=== PATIENT | male | born 1965 | race Caucasian/White ===

== ENCOUNTER 2017-02-14 17:01 | Inpatient (IN) | payer OTHER ==
[~2017-02-14] VITALS: Ht 167.6 cm; Wt 85.0 kg
[2017-02-14] MEDS ORDERED: IOHEXOL 350 MG/ML 10 ML VIAL (for RAD DIAG) IVCONTRAST ONE (17:02)
[2017-02-14] MEDS ORDERED: MORPHINE SULFATE 8 MG/ML INJ ONE (17:09)
[2017-02-14 17:18] VITALS: O2SAT 97
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
[2017-02-14 17:27] LABS: AUTOMATED NEUTROPHIL # 7.4 TH/MM3 (1.8-7.7); BASOPHIL # 0.1 TH/MM3 (0-0.2); BASOPHIL % 0.6 % (0.0-2.0); EOSINOPHIL # 0.2 TH/MM3 (0-0.4); HEMATOCRIT 47.4 % (39.0-51.0); HEMO FLAGS DIFF FINAL; LYMPH % 23.9 % (9.0-44.0); LYMPHOCYTE # 2.8 TH/MM3 (1.0-4.8); MEAN CORPUSCULAR HEMOGLOBIN 34.3 PG (27.0-34.0); MEAN CORPUSCULAR HGB CONC 33.6 % (32.0-36.0); MONO % 9.5 % (0.0-8.0); PLATELET COUNT 230 TH/MM3 (150-450); RED BLOOD COUNT 4.65 MIL/MM3 (4.50-5.90); RED CELL DISTRIBUTION WIDTH 13.2 % (11.6-17.2); WHITE BLOOD COUNT 11.6 TH/MM3 (4.0-11.0)
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
[2017-02-14 17:37] LABS: APTT (PATIENT) 24.1 SEC (24.3-30.1); I-STAT POTASSIUM 4.2 MMOL/L (3.5-4.9); INTERNATIONAL NORMALIZED RATIO 1.1 RATIO; PROTHROMBIN TIME - PATIENT 11.9 SEC (9.8-11.6)
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
[2017-02-14] MEDS ORDERED: POTA-163 PO (17:53)
[2017-02-14] MEDS ORDERED: IPRASOL INH (17:53)
[2017-02-14] MEDS ORDERED: VENTAER INH (17:53)
[2017-02-14] MEDS ORDERED: THEO400T2 PO (17:53)
[2017-02-14] MEDS ORDERED: TAMS0.4C4 PO (17:53)
[2017-02-14] MEDS ORDERED: FURO40TA PO (17:53)
[2017-02-14] MEDS ORDERED: SYMB80AE INH (17:53)
[2017-02-14] MEDS ORDERED: CYAN1TAB24 (17:55)
[2017-02-14] MEDS ORDERED: MULT1TAB46 (17:55)
[2017-02-14] MEDS ORDERED: CHLORHEXIDINE GLUCONATE 2 % 1 PACK (2 CLOTHS) TOP PRN (19:00)
[2017-02-14] MEDS ORDERED: MISCELLANEOUS NURSING INFORMATION XX SCH (19:00)
[2017-02-14] MEDS ORDERED: ENALAPRILAT 1.25 MG/ML VIAL IV PUSH PRN (19:00)
[2017-02-14] MEDS ORDERED: ONDANSETRON HCL 4 MG/2 ML VIAL IV PUSH PRN (19:00)
[2017-02-14] MEDS ORDERED: SODIUM CHLORIDE 0.9% FLUSH 10 ML FLUSH IV FLUSH PRN (19:00)
[2017-02-14] MEDS ORDERED: MAGNESIUM HYDROXIDE SUSP 30 ML CUP PO PRN (19:00)
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
[2017-02-14 20:00] VITALS: BP 139/86; PULSE 117; RESP 20; TEMP 98.1; O2SAT 99
[2017-02-14] MEDS ORDERED: MORPHINE SULFATE 2 MG/ML INJ IV PUSH PRN (20:30)
[2017-02-14] MEDS ORDERED: RESP: ALBUTEROL 2.5 MG/IPRATROPIUM 0.5 MG NEB (SCH) NEB ONE (20:45)
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
[2017-02-14] MEDS ORDERED: MULTIVITAMIN INJ 10 ML, THIAMINE INJ 100 MG, FOLIC ACID INJ 1 MG in SODIUM CHLORID 0.9%... IV SCH (21:00)
[2017-02-14] MEDS ORDERED: PANTOPRAZOLE SODIUM 40 MG VIAL IVP SCH (21:00)
[2017-02-14] MEDS ORDERED: DOCUSATE SODIUM 100 MG CAP PO SCH (21:00)
[2017-02-14] MEDS: ACETAMINOPHEN/HYDROcodone 325 MG/5 MG TAB PO PRN (21:30)
[2017-02-14 22:35] VITALS: O2SAT 96
[2017-02-14] MEDS: BACITRACIN TOP OINT 15 GM TUBE TOP SCH (22:51)
[2017-02-15] VITALS (13 sets, daily range): BP systolic 120–167; BP diastolic 75–97; PULSE 86–104; RESP 13–21; TEMP 96.7–98.7; O2SAT 95–100
[2017-02-15 00:24] LABS: GLOMERULAR FILTRATION RATE 91 ML/MIN (>89)
[2017-02-15 00:32] LABS: ALKALINE PHOSPHATASE 163 U/L (45-117); ALT (GPT) 87 U/L (12-78); ANION GAP 8 MEQ/L (5-15); AST (GOT) 68 U/L (15-37); BICARBONATE 31.4 MEQ/L (21.0-32.0); BLOOD UREA NITROGEN 9 MG/DL (7-18); CHLORIDE 99 MEQ/L (98-107); SODIUM (NA) 138 MEQ/L (136-145); TOTAL BILIRUBIN ADULT 0.4 MG/DL (0.2-1.0)
[2017-02-15 00:33] LABS: THEOPHYLLINE 3.9 MCG/ML (10.0-20.0)
[2017-02-15] MEDS: ACETAMINOPHEN/HYDROcodone 325 MG/5 MG TAB PO PRN ×4 (03:43→22:45)
[2017-02-15] MEDS: CHLORHEXIDINE GLUCONATE 2 % 1 PACK (2 CLOTHS) TOP SCH (03:47)
[2017-02-15 05:51] LABS: AUTOMATED NEUTROPHIL # 10.5 TH/MM3 (1.8-7.7); BASOPHIL % 0.3 % (0.0-2.0); EOSINOPHIL # 0.1 TH/MM3 (0-0.4); EOSINOPHIL % 0.5 % (0.0-4.0); HEMATOCRIT 44.2 % (39.0-51.0); HEMO FLAGS DIFF FINAL; LYMPHOCYTE # 1.6 TH/MM3 (1.0-4.8); MEAN CELL VOLUME 100.9 FL (80.0-100.0); MEAN CORPUSCULAR HEMOGLOBIN 33.8 PG (27.0-34.0); MEAN CORPUSCULAR HGB CONC 33.5 % (32.0-36.0); NEUT % 78.2 % (16.0-70.0); PLATELET COUNT 230 TH/MM3 (150-450); RED BLOOD COUNT 4.37 MIL/MM3 (4.50-5.90); RED CELL DISTRIBUTION WIDTH 13.1 % (11.6-17.2); WHITE BLOOD COUNT 13.4 TH/MM3 (4.0-11.0)
--- NOTE | 2017-02-15 06:29 | RADRPT ---
EXAM DATE/TIME: 02/15/2017 05:22 [facility] COMPARISON: CHEST SINGLE AP, February 14, 2017, 17:02. INDICATIONS : Short of breath. MEDICAL HISTORY : None. SURGICAL HISTORY : None. ENCOUNTER: Subsequent ACUITY: 2 days PAIN SCORE: Non-responsive. LOCATION: Bilateral chest FINDINGS: The cardiac silhouette is normal in transverse diameter. There is subsegmental atelectasis in the lef t base. The right lung is free of acute parenchymal opacity. There is eventration of the right hemidi aphragm. CONCLUSION: 1. Subsegmental atelectasis left base. Edison Garcia MD on February 15, 2017 at 6:27 Board Certified Radiologist. This report was verified electronically.
[2017-02-15] MEDS ORDERED: LACTULOSE SYRUP 20 GM/30 ML CUP PO PRN (06:30)
[2017-02-15] MEDS: RESP: ALBUTEROL 2.5 MG/IPRATROPIUM 0.5 MG NEB (SCH) NEB ×4 (07:19→19:30)
[2017-02-15] MEDS: METHOCARBAMOL 500 MG TAB PO SCH ×3 (08:44→21:03)
[2017-02-15] MEDS: FUROSEMIDE 40 MG TAB PO SCH (08:44)
[2017-02-15] MEDS: POTASSIUM CHLORIDE 20 MEQ CONTROLLED RELEASE TAB PO SCH (08:44)
[2017-02-15] MEDS: CYANOCOBALAMIN 1,000 MCG TAB PO SCH (08:44)
[2017-02-15] MEDS: DOCUSATE SODIUM 50 MG/SENNA 8.6 MG TAB PO SCH ×2 (08:44→21:02)
[2017-02-15] MEDS: FAMOTIDINE 20 MG TAB PO SCH ×2 (08:44→21:02)
[2017-02-15] MEDS: LIDOCAINE HCL 5% PATCH T-DERMAL SCH (08:45)
[2017-02-15] MEDS: BACITRACIN TOP OINT 15 GM TUBE TOP SCH ×2 (08:45→21:03)
[2017-02-15] MEDS: BUDESONIDE-FORMOTEROL 80/4.5 MCG INHALER INH SCH ×2 (09:00→21:04)
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
[2017-02-15] MEDS: THEOPHYLLINE 200 MG EXTENDED RELEASE CAP PO SCH (18:14)
[2017-02-15] MEDS: REMOVE OLD LIDOCAINE PATCH T-DERMAL SCH (21:00)
[2017-02-15] MEDS: FOLIC ACID 1 MG TAB PO SCH (21:02)
[2017-02-15] MEDS: TAMSULOSIN HCL 0.4 MG CAP PO SCH (21:02)
[2017-02-15] MEDS: guaiFENesin E.R. 600 MG TAB PO SCH (21:02)
[2017-02-15] MEDS: MULTIVITAMIN INJ 10 ML, THIAMINE INJ 100 MG in SODIUM CHLORID 0.9% 500 ML INJ 500 ML IV SCH (21:03)
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
[2017-02-16] VITALS (13 sets, daily range): BP systolic 115–142; BP diastolic 72–83; PULSE 87–117; RESP 17–20; TEMP 96.5–97.6; O2SAT 95–99
[2017-02-16] MEDS: CHLORHEXIDINE GLUCONATE 2 % 1 PACK (2 CLOTHS) TOP SCH (00:17)
[2017-02-16] MEDS: ACETAMINOPHEN/HYDROcodone 325 MG/5 MG TAB PO PRN ×5 (02:33→20:51)
[2017-02-16 04:55] LABS: AUTOMATED NEUTROPHIL # 7.9 TH/MM3 (1.8-7.7); BASOPHIL % 0.3 % (0.0-2.0); EOSINOPHIL # 0.3 TH/MM3 (0-0.4); EOSINOPHIL % 2.5 % (0.0-4.0); HEMATOCRIT 39.8 % (39.0-51.0); HEMO FLAGS DIFF FINAL; LYMPHOCYTE # 1.6 TH/MM3 (1.0-4.8); MEAN CELL VOLUME 100.7 FL (80.0-100.0); MEAN CORPUSCULAR HEMOGLOBIN 34.4 PG (27.0-34.0); MEAN CORPUSCULAR HGB CONC 34.2 % (32.0-36.0); MONO % 9.4 % (0.0-8.0); NEUT % 72.8 % (16.0-70.0); PLATELET COUNT 199 TH/MM3 (150-450); RED BLOOD COUNT 3.95 MIL/MM3 (4.50-5.90); RED CELL DISTRIBUTION WIDTH 12.8 % (11.6-17.2); WHITE BLOOD COUNT 10.9 TH/MM3 (4.0-11.0)
[2017-02-16 05:23] LABS: ANION GAP 4 MEQ/L (5-15); AST (GOT) 41 U/L (15-37); BICARBONATE 32.3 MEQ/L (21.0-32.0); BLOOD UREA NITROGEN 17 MG/DL (7-18); CHLORIDE 100 MEQ/L (98-107); GLOMERULAR FILTRATION RATE 96 ML/MIN (>89); MAGNESIUM 2.1 MG/DL (1.5-2.5); POTASSIUM 3.7 MEQ/L (3.5-5.1); SODIUM (NA) 136 MEQ/L (136-145)
[2017-02-16 05:32] LABS: ALKALINE PHOSPHATASE 117 U/L (45-117); ALT (GPT) 62 U/L (12-78); FREE T4 1.11 NG/DL (0.76-1.46); TOTAL BILIRUBIN ADULT 0.9 MG/DL (0.2-1.0)
[2017-02-16] MEDS: RESP: ALBUTEROL 2.5 MG/3 ML NEB (PRN) NEB (06:06)
[2017-02-16] MEDS: METHOCARBAMOL 500 MG TAB PO SCH ×3 (06:07→20:50)
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
[2017-02-16] MEDS: RESP: ALBUTEROL 2.5 MG/IPRATROPIUM 0.5 MG NEB (SCH) NEB ×4 (08:17→21:20)
[2017-02-16] MEDS: FAMOTIDINE 20 MG TAB PO SCH ×2 (08:23→20:50)
[2017-02-16] MEDS: LIDOCAINE HCL 5% PATCH T-DERMAL SCH (08:23)
[2017-02-16] MEDS: POTASSIUM CHLORIDE 20 MEQ CONTROLLED RELEASE TAB PO SCH (08:24)
[2017-02-16] MEDS: guaiFENesin E.R. 600 MG TAB PO SCH ×2 (08:24→20:49)
[2017-02-16] MEDS: FUROSEMIDE 40 MG TAB PO SCH (08:24)
[2017-02-16] MEDS: CYANOCOBALAMIN 1,000 MCG TAB PO SCH (08:24)
[2017-02-16] MEDS: DOCUSATE SODIUM 50 MG/SENNA 8.6 MG TAB PO SCH ×2 (08:24→20:50)
[2017-02-16] MEDS: BUDESONIDE-FORMOTEROL 80/4.5 MCG INHALER INH SCH ×2 (08:29→20:49)
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
[2017-02-16] MEDS: THEOPHYLLINE 200 MG EXTENDED RELEASE CAP PO SCH (11:26)
[2017-02-16] MEDS: BACITRACIN TOP OINT 15 GM TUBE TOP SCH ×2 (11:27→20:51)
--- NOTE | 2017-02-16 11:27 | ECHRPT ---
Indication: sob CONCLUSIONS The left ventricular systolic function is low normal with an estimated ejection fraction in the rang e of 50- 55%. Normal left ventricular size. Mbbca-[id number]-mhyv mitral valve regurgitation. No aortic valve regurgitation. No aortic valve stenosis. There is mild tricuspid valve regurgitation. The pulmonary valve is not well visualized. BP: / HR: Rhythm: MEASUREMENTS (Male / Female) Normal Values Technical Quality:Very technically difficult study 2D ECHO LV Diastolic Diameter PLAX 4.5 cm 4.2 - 5.9 / 3.9 - 5.3 cm LV Systolic Diameter PLAX 3.5 cm IVS Diastolic Thickness 0.6 cm 0.6 - 1.0 / 0.6 - 0.9 cm LVPW Diastolic Thickness 0.9 cm 0.6 - 1.0 / 0.6 - 0.9 cm LV Relative Wall Thickness 0.4 RV Internal Dim ED PLAX 2.8 cm M-MODE Aortic Root Diameter MM 3.7 cm LA Systolic Diameter MM 2.4 cm LA Ao Ratio MM 0.6 FINDINGS LEFT VENTRICLE The left ventricular systolic function is low normal with an estimated ejection fraction in the rang e of 50- 55%. Normal left ventricular size. RIGHT VENTRICLE Normal right ventricular size and systolic function. LEFT ATRIUM The left atrial size is normal. RIGHT ATRIUM The right atrial size is normal. ATRIAL SEPTUM Normal atrial septal thickness without atrial level shunting by limited color doppler interrogation. AORTA The aortic root and proximal ascending aorta are normal in size on limited imaging. MITRAL VALVE Structurally normal mitral valve. Ezkbs-gt-oyca mitral valve regurgitation. AORTIC VALVE Trileaflet aortic valve. No aortic valve regurgitation. No aortic valve stenosis. TRICUSPID VALVE Structurally normal tricuspid valve. There is mild tricuspid valve regurgitation. PULMONARY VALVE The pulmonary valve is not well visualized. VESSELS The inferior vena cava is normal in size. PERICARDIUM No pericardial effusion. Burt Powell MD (Electronically Signed) Final Date:16 February 2017 11:27
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
[2017-02-16] MEDS: ENOXAPARIN SODIUM 40 MG/0.4 ML SYRINGE SQ SCH (14:01)
[2017-02-16 14:14] LABS: HEMOGLOBIN A1b 0.8 %; HEMOGLOBIN Ao 84.2 %; HEMOGLOBIN LA1C 2.3 %; HEMOGLOBIN P3 3.8 %
[2017-02-16] MEDS ORDERED: LACTULOSE SYRUP 20 GM/30 ML CUP PO ONE (15:15)
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
[2017-02-16] MEDS ORDERED: guaiFENesin ER PO (20:33)
[2017-02-16] MEDS ORDERED: PERI PO (20:33)
[2017-02-16] MEDS ORDERED: MAGN30S PO (20:33)
[2017-02-16] MEDS: TAMSULOSIN HCL 0.4 MG CAP PO SCH (20:49)
[2017-02-16] MEDS: MULTIVITAMIN INJ 10 ML, THIAMINE INJ 100 MG in SODIUM CHLORID 0.9% 500 ML INJ 500 ML IV SCH (20:49)
[2017-02-16] MEDS: FOLIC ACID 1 MG TAB PO SCH (20:50)
[2017-02-16] MEDS: REMOVE OLD LIDOCAINE PATCH T-DERMAL SCH (20:51)
[2017-02-17] VITALS (9 sets, daily range): BP systolic 138–163; BP diastolic 85–92; PULSE 106–118; RESP 16–22; TEMP 96–97.5; O2SAT 95–98
[2017-02-17] MEDS: CHLORHEXIDINE GLUCONATE 2 % 1 PACK (2 CLOTHS) TOP SCH (03:51)
[2017-02-17] MEDS: METHOCARBAMOL 500 MG TAB PO SCH ×3 (05:24→20:54)
[2017-02-17] MEDS: ACETAMINOPHEN/HYDROcodone 325 MG/5 MG TAB PO PRN ×4 (05:24→18:14)
[2017-02-17 06:56] LABS: ALT (GPT) 63 U/L (12-78); ANION GAP 9 MEQ/L (5-15); AST (GOT) 54 U/L (15-37); BICARBONATE 27.8 MEQ/L (21.0-32.0); BLOOD UREA NITROGEN 13 MG/DL (7-18); CHLORIDE 97 MEQ/L (98-107); GLOMERULAR FILTRATION RATE 100 ML/MIN (>89); MAGNESIUM 2.2 MG/DL (1.5-2.5); POTASSIUM 3.7 MEQ/L (3.5-5.1); SODIUM (NA) 134 MEQ/L (136-145)
[2017-02-17 06:59] LABS: ALKALINE PHOSPHATASE 124 U/L (45-117); TOTAL BILIRUBIN ADULT 0.9 MG/DL (0.2-1.0)
[2017-02-17 07:16] LABS: AUTOMATED NEUTROPHIL # 10.1 TH/MM3 (1.8-7.7); BASOPHIL % 0.4 % (0.0-2.0); EOSINOPHIL # 0.2 TH/MM3 (0-0.4); EOSINOPHIL % 1.6 % (0.0-4.0); HEMATOCRIT 40.6 % (39.0-51.0); HEMO FLAGS DIFF FINAL; LYMPH % 10.7 % (9.0-44.0); LYMPHOCYTE # 1.4 TH/MM3 (1.0-4.8); MEAN CELL VOLUME 101.1 FL (80.0-100.0); MEAN CORPUSCULAR HGB CONC 34.6 % (32.0-36.0); MONO % 8.4 % (0.0-8.0); NEUT % 78.9 % (16.0-70.0); PLATELET COUNT 208 TH/MM3 (150-450); RED BLOOD COUNT 4.02 MIL/MM3 (4.50-5.90); RED CELL DISTRIBUTION WIDTH 12.7 % (11.6-17.2); WHITE BLOOD COUNT 12.8 TH/MM3 (4.0-11.0)
[2017-02-17] MEDS: DOCUSATE SODIUM 50 MG/SENNA 8.6 MG TAB PO SCH ×2 (07:26→20:50)
[2017-02-17] MEDS: FAMOTIDINE 20 MG TAB PO SCH ×2 (07:26→20:50)
[2017-02-17] MEDS: guaiFENesin E.R. 600 MG TAB PO SCH ×2 (07:26→20:50)
[2017-02-17] MEDS: THEOPHYLLINE 200 MG EXTENDED RELEASE CAP PO SCH (07:27)
[2017-02-17] MEDS: POTASSIUM CHLORIDE 20 MEQ CONTROLLED RELEASE TAB PO SCH (07:27)
[2017-02-17] MEDS: CYANOCOBALAMIN 1,000 MCG TAB PO SCH (07:27)
[2017-02-17] MEDS: FUROSEMIDE 40 MG TAB PO SCH (07:27)
[2017-02-17] MEDS: BUDESONIDE-FORMOTEROL 80/4.5 MCG INHALER INH SCH ×2 (07:31→20:49)
[2017-02-17] MEDS: BACITRACIN TOP OINT 15 GM TUBE TOP SCH ×2 (07:31→20:49)
[2017-02-17] MEDS: LIDOCAINE HCL 5% PATCH T-DERMAL SCH (09:00)
[2017-02-17] MEDS: RESP: ALBUTEROL 2.5 MG/IPRATROPIUM 0.5 MG NEB (SCH) NEB ×4 (09:12→19:23)
--- NOTE | 2017-02-17 10:48 | PD.ORT.PN ---
Subjective Subjective Remarks left shoulder and rib pain Objective Vitals Vital Signs Date Time Temp Pulse Resp B/P (MAP) Pulse Ox O2 Delivery O2 Flow Rate FiO2 02/17/17 09:12 98 Nasal Cannula 3.00 02/17/17 08:00 96.0 111 22 163/92 (115) 95 02/17/17 04:00 96.4 111 20 146/85 (105) 98 02/17/17 00:46 96.1 106 16 153/90 (111) 97 02/16/17 21:27 95 30 02/16/17 21:20 95 Nasal Cannula 2.50 02/16/17 20:07 97.5 114 18 130/83 (99) 97 02/16/17 19:45 117 02/16/17 16:00 97.6 111 17 115/72 (86) 97 02/16/17 12:00 96.8 108 17 134/80 (98) 96 I/O 02/16/17 02/16/17 02/16/17 02/17/17 02/17/17 02/17/17 07:00 15:00 23:00 07:00 15:00 23:00 Intake Total 871 ml 480 ml 511 ml Output Total 550 ml 1250 ml Balance 321 ml -770 ml 511 ml Intake Oral 360 ml 480 ml IV Total 511 ml 511 ml Output Urine Total 550 ml 1250 ml # Voids 1 3 # Bowel Movements 0 0 1 Result Diagram: 02/17/17 0536 02/17/17 0536 Assessment & Plan Problem List: (1) Nondisplaced fracture of lateral end of left clavicle ICD Codes: S42.035A - Nondisplaced fracture of lateral end of left clavicle, initial encounter for closed fracture Status: Acute Qualifiers: Qualified Codes: S42.035A - Nondisplaced fracture of lateral end of left clavicle, initial encounter for closed fracture Assessment and Plan Non operative fracture management Continue standard sling Use of hand ok Avoid reaching with arm Follow up with Cal ZHAO(Dr. Liang's office) in 4 weeks Ok to D/C to home or rehab Micky Liang MD Feb 17, 2017 10:48
[2017-02-17] MEDS ORDERED: ENOX40P SQ (11:37)
[2017-02-17] MEDS ORDERED: HYDR-3516 PO (11:37)
[2017-02-17] MEDS ORDERED: METH500T3 PO (11:37)
[2017-02-17] MEDS ORDERED: FAMO20TA2 PO (11:37)
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
[2017-02-17] MEDS: ENOXAPARIN SODIUM 40 MG/0.4 ML SYRINGE SQ SCH (13:59)
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
[2017-02-17] MEDS ORDERED: GLUCAGON 1 MG/ML VIAL OTHER PRN (19:00)
[2017-02-17] MEDS ORDERED: DEXTROSE 50% IN WATER 50 ML VIAL(D50) IV PUSH PRN (19:00)
[2017-02-17] MEDS: REMOVE OLD LIDOCAINE PATCH T-DERMAL SCH (20:50)
[2017-02-17] MEDS: TAMSULOSIN HCL 0.4 MG CAP PO SCH (20:50)
[2017-02-17] MEDS: INSULIN ASPART SUPPLEMENTAL SCALE SQ SCH (20:58)
[2017-02-18] VITALS (12 sets, daily range): BP systolic 129–156; BP diastolic 80–93; PULSE 96–110; RESP 19–20; TEMP 95.5–98.2; O2SAT 97–100
[2017-02-18] MEDS: METHOCARBAMOL 500 MG TAB PO SCH ×3 (04:22→21:56)
[2017-02-18] MEDS: INSULIN ASPART SUPPLEMENTAL SCALE SQ SCH ×4 (08:00→21:00)
[2017-02-18] MEDS: FAMOTIDINE 20 MG TAB PO SCH ×2 (08:10→20:15)
[2017-02-18] MEDS: guaiFENesin E.R. 600 MG TAB PO SCH ×2 (08:10→20:15)
[2017-02-18] MEDS: CYANOCOBALAMIN 1,000 MCG TAB PO SCH (08:11)
[2017-02-18] MEDS: POTASSIUM CHLORIDE 20 MEQ CONTROLLED RELEASE TAB PO SCH (08:11)
[2017-02-18] MEDS: metFORMIN HCL 500 MG TAB PO SCH ×2 (08:11→17:33)
[2017-02-18] MEDS: BUDESONIDE-FORMOTEROL 80/4.5 MCG INHALER INH SCH ×2 (08:12→20:14)
[2017-02-18] MEDS: FUROSEMIDE 40 MG TAB PO SCH (08:12)
[2017-02-18] MEDS: RESP: ALBUTEROL 2.5 MG/IPRATROPIUM 0.5 MG NEB (SCH) NEB ×4 (08:12→20:52)
[2017-02-18] MEDS: LIDOCAINE HCL 5% PATCH T-DERMAL SCH (08:13)
[2017-02-18] MEDS: DOCUSATE SODIUM 50 MG/SENNA 8.6 MG TAB PO SCH ×2 (08:13→20:15)
[2017-02-18] MEDS: BACITRACIN TOP OINT 15 GM TUBE TOP SCH ×2 (08:14→20:15)
[2017-02-18] MEDS: ACETAMINOPHEN/HYDROcodone 325 MG/5 MG TAB PO PRN ×3 (08:20→21:57)
[2017-02-18] MEDS: THEOPHYLLINE 200 MG EXTENDED RELEASE CAP PO SCH (08:20)
--- NOTE | 2017-02-18 09:17 | PD.ORT.PN ---
Subjective Subjective Remarks Patient comfortable. Pain controlled. Objective Vitals Vital Signs Date Time Temp Pulse Resp B/P (MAP) Pulse Ox O2 Delivery O2 Flow Rate FiO2 02/18/17 09:00 96.8 105 20 150/80 (103) 98 02/18/17 08:23 4.00 02/18/17 08:20 98 Nasal Cannula 5.00 02/18/17 04:00 97.2 96 20 152/93 (112) 99 02/18/17 03:20 99 40 02/18/17 02:00 99 40 02/18/17 00:00 97.6 102 20 156/89 (111) 100 02/17/17 22:30 98 40 02/17/17 20:59 Nasal Cannula 3.00 02/17/17 19:55 97.5 116 20 152/89 (110) 98 02/17/17 19:24 98 Nasal Cannula 4.00 02/17/17 16:00 97.1 118 20 153/91 (111) 98 02/17/17 12:00 97.5 106 20 138/85 (102) 98 I/O 02/17/17 02/17/17 02/17/17 02/18/17 02/18/17 02/18/17 07:00 15:00 23:00 07:00 15:00 23:00 Intake Total 511 ml 840 ml 240 ml Output Total 700 ml 300 ml Balance 511 ml 140 ml -60 ml Intake Oral 840 ml 240 ml IV Total 511 ml Output Urine Total 700 ml 300 ml # Voids 3 2 2 # Bowel Movements 2 0 Result Diagram: 02/17/17 0536 02/17/17 0536 Objective Remarks Left clavicle skin intact ecchymosis noted tenderness with direct palpation to fracture site +sensation 2+ dorsalis pedis pulse Assessment & Plan Problem List: (1) Nondisplaced fracture of lateral end of left clavicle ICD Codes: S42.035A - Nondisplaced fracture of lateral end of left clavicle, initial encounter for closed fracture Status: Acute Qualifiers: Qualified Codes: S42.035A - Nondisplaced fracture of lateral end of left clavicle, initial encounter for closed fracture Assessment and Plan Non operative fracture management Pain management Continue standard sling Use of hand ok Avoid reaching with arm Follow up with Cal ZHAO (Dr. Liang's office) in 4 weeks Ok to D/C to home or rehab Cal Guerrero Feb 18, 2017 09:17
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
[2017-02-18 10:40] LABS: AUTOMATED NEUTROPHIL # 8.4 TH/MM3 (1.8-7.7); BASOPHIL # 0.1 TH/MM3 (0-0.2); BASOPHIL % 0.5 % (0.0-2.0); EOSINOPHIL # 0.3 TH/MM3 (0-0.4); EOSINOPHIL % 2.4 % (0.0-4.0); HEMATOCRIT 40.5 % (39.0-51.0); HEMO FLAGS DIFF FINAL; LYMPH % 11.4 % (9.0-44.0); LYMPHOCYTE # 1.3 TH/MM3 (1.0-4.8); MEAN CELL VOLUME 102.5 FL (80.0-100.0); MEAN CORPUSCULAR HEMOGLOBIN 35.1 PG (27.0-34.0); MEAN CORPUSCULAR HGB CONC 34.2 % (32.0-36.0); MONO % 13.2 % (0.0-8.0); NEUT % 72.5 % (16.0-70.0); PLATELET COUNT 198 TH/MM3 (150-450); RED BLOOD COUNT 3.95 MIL/MM3 (4.50-5.90); RED CELL DISTRIBUTION WIDTH 13.1 % (11.6-17.2); WHITE BLOOD COUNT 11.6 TH/MM3 (4.0-11.0)
[2017-02-18 11:06] LABS: ANION GAP 5 MEQ/L (5-15); AST (GOT) 63 U/L (15-37); BICARBONATE 32.9 MEQ/L (21.0-32.0); BLOOD UREA NITROGEN 14 MG/DL (7-18); CHLORIDE 99 MEQ/L (98-107); GLOMERULAR FILTRATION RATE 97 ML/MIN (>89); POTASSIUM 3.8 MEQ/L (3.5-5.1); SODIUM (NA) 137 MEQ/L (136-145)
[2017-02-18 11:08] LABS: ALT (GPT) 66 U/L (12-78)
[2017-02-18 11:10] LABS: ALKALINE PHOSPHATASE 140 U/L (45-117); HDL CHOLESTEROL 61.1 MG/DL (40.0-60.0); LDL CHOLESTEROL 75 MG/DL (0-99); TOTAL BILIRUBIN ADULT 0.7 MG/DL (0.2-1.0)
[2017-02-18] MEDS ORDERED: SODIUM CHLORIDE 0.65% NASAL DRP/SPRY 30 ML BTL EACH NARE PRN (12:00)
[2017-02-18] MEDS ORDERED: DOXAZOSIN MESYLATE 1 MG TAB PO ONE (12:15)
--- NOTE | 2017-02-18 12:52 | EKG ---
Date Performed: 02/17/2017 Time Performed: 18:43:40 PTAGE: 51 years EKG: Sinus tachycardia Generalized low voltage Poor R-wave progression across the precordium Sma ll inferior Q-waves of undetermined significance NO PREVIOUS TRACING DOCTOR: Ace Melchor Interpretating Date/Time 02/18/2017 12:50:30
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
[2017-02-18] MEDS: CETIRIZINE HCL 10 MG TAB PO SCH (14:35)
[2017-02-18] MEDS: ENOXAPARIN SODIUM 40 MG/0.4 ML SYRINGE SQ SCH (14:36)
[2017-02-18] MEDS: TAMSULOSIN HCL 0.4 MG CAP PO SCH (20:15)
[2017-02-18] MEDS: REMOVE OLD LIDOCAINE PATCH T-DERMAL SCH (20:18)
[2017-02-19] VITALS (8 sets, daily range): BP systolic 124–140; BP diastolic 69–79; PULSE 95–110; RESP 18–19; TEMP 96–98.3; O2SAT 98–100
[2017-02-19] MEDS: ACETAMINOPHEN/HYDROcodone 325 MG/5 MG TAB PO PRN ×3 (02:17→14:59)
[2017-02-19] MEDS: METHOCARBAMOL 500 MG TAB PO SCH ×2 (06:09→13:12)
[2017-02-19] MEDS: RESP: ALBUTEROL 2.5 MG/IPRATROPIUM 0.5 MG NEB (SCH) NEB ×3 (07:27→15:17)
--- NOTE | 2017-02-19 07:44 | PD.ORT.PN ---
Subjective Subjective Remarks left shoulder and rib pain comfortable Objective Vitals Vital Signs Date Time Temp Pulse Resp B/P (MAP) Pulse Ox O2 Delivery O2 Flow Rate FiO2 02/19/17 07:29 98 Nasal Cannula 4.00 02/19/17 04:05 96.8 108 19 124/69 (87) 99 02/19/17 03:42 98 4.00 02/19/17 00:05 98.3 110 19 137/76 (96) 98 02/18/17 23:33 99 40 02/18/17 20:55 98 Nasal Cannula 4.00 02/18/17 20:05 98.2 110 19 141/85 (103) 97 02/18/17 20:00 97 Nasal Cannula 4.00 02/18/17 20:00 110 02/18/17 15:45 97.8 108 20 129/85 (100) 99 02/18/17 12:00 95.5 97 20 142/90 (107) 99 02/18/17 09:00 96.8 105 20 150/80 (103) 98 02/18/17 08:23 4.00 02/18/17 08:20 98 Nasal Cannula 5.00 I/O 02/18/17 02/18/17 02/18/17 02/19/17 02/19/17 02/19/17 07:00 15:00 23:00 07:00 15:00 23:00 Intake Total 240 ml 360 ml 240 ml 240 ml Output Total 300 ml 1000 ml 250 ml Balance -60 ml -640 ml 240 ml -10 ml Intake Oral 240 ml 360 ml 240 ml 240 ml Output Urine Total 300 ml 1000 ml 250 ml # Voids 2 1 # Bowel Movements 1 0 0 Result Diagram: 02/18/17 1007 02/18/17 1007 Objective Remarks Left clavicle skin intact ecchymosis noted tenderness with direct palpation to fracture site +sensation 2+ pulse Assessment & Plan Problem List: (1) Nondisplaced fracture of lateral end of left clavicle ICD Codes: S42.035A - Nondisplaced fracture of lateral end of left clavicle, initial encounter for closed fracture Status: Acute Qualifiers: Qualified Codes: S42.035A - Nondisplaced fracture of lateral end of left clavicle, initial encounter for closed fracture Assessment and Plan Non operative fracture management Pain management Continue standard sling Use of hand ok Avoid reaching with arm Follow up with Cal Yolanda FOREMAN/PROJECT MANAGER (Dr. Liang's office) in 4 weeks Ok to D/C to home or rehab Micky Liang MD Feb 19, 2017 07:44
[2017-02-19] MEDS ORDERED: DOXAZOSIN MESYLATE 1 MG TAB PO SCH (09:00)
[2017-02-19] MEDS: CYANOCOBALAMIN 1,000 MCG TAB PO SCH (09:09)
[2017-02-19] MEDS: FUROSEMIDE 40 MG TAB PO SCH (09:09)
[2017-02-19] MEDS: CETIRIZINE HCL 10 MG TAB PO SCH (09:09)
[2017-02-19] MEDS: guaiFENesin E.R. 600 MG TAB PO SCH (09:09)
[2017-02-19] MEDS: FAMOTIDINE 20 MG TAB PO SCH (09:09)
[2017-02-19] MEDS: THEOPHYLLINE 200 MG EXTENDED RELEASE CAP PO SCH (09:09)
[2017-02-19] MEDS: POTASSIUM CHLORIDE 20 MEQ CONTROLLED RELEASE TAB PO SCH (09:09)
[2017-02-19] MEDS: DOCUSATE SODIUM 50 MG/SENNA 8.6 MG TAB PO SCH (09:09)
[2017-02-19] MEDS: LIDOCAINE HCL 5% PATCH T-DERMAL SCH (09:12)
[2017-02-19] MEDS: BACITRACIN TOP OINT 15 GM TUBE TOP SCH (09:13)
[2017-02-19] MEDS: BUDESONIDE-FORMOTEROL 80/4.5 MCG INHALER INH SCH (09:13)
[2017-02-19] MEDS: INSULIN ASPART SUPPLEMENTAL SCALE SQ SCH ×3 (09:21→17:00)
[2017-02-19] MEDS: metFORMIN HCL 500 MG TAB PO SCH ×2 (09:21→17:26)
[2017-02-19] MEDS: RESP: ALBUTEROL 2.5 MG/3 ML NEB (PRN) NEB (11:09)
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
[2017-02-19] MEDS: ENOXAPARIN SODIUM 40 MG/0.4 ML SYRINGE SQ SCH (13:12)
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
== END 2017-02-19 17:51 | DRG 184 ==
LOC: NEPI 17:01 → EDBD 17:41 → NEDH 17:41 → N03B 17:51 → N06B 02-15 22:26
PROVIDERS: ADMIT Surgery; ATTEND Surgery
DX: S22.42XA Multiple fractures of ribs, left side, initial encounter for closed fracture (principal); S27.0XXA Traumatic pneumothorax, initial encounter; J96.11 Chronic respiratory failure with hypoxia; K74.60 Unspecified cirrhosis of liver; J43.9 Emphysema, unspecified; S42.035A Nondisplaced fracture of lateral end of left clavicle, initial encounter for closed fracture; D72.829 Elevated white blood cell count, unspecified; Z99.81 Dependence on supplemental oxygen; I10 Essential (primary) hypertension; R00.0 Tachycardia, unspecified; D75.89 Other specified diseases of blood and blood-forming organs; V89.2XXA Person injured in unspecified motor-vehicle accident, traffic, initial encounter; Y92.488 Other paved roadways as the place of occurrence of the external cause; G47.33 Obstructive sleep apnea (adult) (pediatric); R60.0 Localized edema; N40.0 Benign prostatic hyperplasia without lower urinary tract symptoms; F10.10 Alcohol abuse, uncomplicated; R73.03 Prediabetes; E66.9 Obesity, unspecified; Z68.30 Body mass index [BMI] 30.0-30.9, adult; K80.20 Calculus of gallbladder without cholecystitis without obstruction; K57.30 Diverticulosis of large intestine without perforation or abscess without bleeding; Z87.891 Personal history of nicotine dependence; Z87.01 Personal history of pneumonia (recurrent)
CPT/HCPCS: 70450; 71010; 71260; 72125; 72170; 73030; 74177; 80053; 80061; 80074; 80198; 82435; 82565; 82947; 82948; 83036; 83735; 84100; 84132; 84295; 84439; 84443; 84520; 85025; 85610; 85730; 86850; 86900; 86901; 87641; 93005; 93306; 94002; 94003; 94150; 94640; 94664; 94667; 94668; J1650; J1815; J2270; J3010; J3411; J7040; J7613; Q9967

== ENCOUNTER 2017-04-17 22:05 | Inpatient (IN) | payer OTHER ==
[2017-04-17] VITALS (10 sets, daily range): BP systolic 88–187; BP diastolic 55–109; PULSE 113–151; RESP 16–18; TEMP 98.1–101.3; O2SAT 97–99
[~2017-04-17] VITALS: Ht 162.6 cm; Wt 76.3 kg
[~2017-04-17 22:05] MED LIST: CYAN1TAB24; ENOX40P SQ; FAMO20TA2 PO; FURO40TA PO; HYDR-3516 PO; IPRASOL INH; MAGN30S PO; METH500T3 PO; MULT1TAB46; PERI PO; POTA-163 PO; SYMB80AE INH; TAMS0.4C4 PO; THEO400T2 PO; VENTAER INH; guaiFENesin ER PO
[2017-04-17] MEDS ORDERED: SODIUM CHLORIDE 0.9% FLUSH 10 ML FLUSH IVF PRN ×3 (22:15→22:45)
--- NOTE | 2017-04-17 22:18 | PD ---
HPI Chief Complaint: shortness of breath Time Seen by Provider: 22:14 Travel History International Travel<30 days: No Contact w/Intl Traveler<30days: No (travel history is unable to be obtained from the patient) History of Present Illness HPI The patient is a 52 year old male who presents to the [facility] emergency department with a history of shortness of breath that began 2 days ago associated with a dry cough. The patient called ambulance services related to the shortness of breath and was noted to be saturating 92% on 2 L nasal cannula O2. The patient is normally on 2 L nasal cannula O2 continuously related to a history of COPD. The patient denies smoking currently. The patient has difficulty providing any of his history due to conversational dyspnea. The patient was placed on albuterol nebulizer treatments and was given 4 in route to this facility. IV access was obtained prior to arrival and the patient was given Solu-Medrol 125 mg IV. The patient's other history is limited as he is unable to provided at this time related to shortness of breath. The patient's history will be obtained from the electronic medical record in any other family members arrive. [facility] Past Medical History Narrative Medical the patient's past medical history is significant for COPD, obstructive sleep apnea on home BiPAP, history of benign prostatic hypertrophy, history of pneumonia 10 years ago related to MRSA, history of chronic pedal edema. The patient underwent a 2-D echo in February 2017 that revealed an ejection fraction of 50-55%. COPD: Yes Hiatal Hernia: Yes Past Surgical History Narrative Surgical The patient's past surgical history is significant for a left inguinal hernia repair, closed reduction of left foot fracture. Social History Alcohol Use: Yes Tobacco Use: No Substance Use: No Allergies-Medications (Allergen,Severity, Reaction): Coded Allergies: No Known Allergies (Unverified , 04/17/17) Reported Meds & Prescriptions Reported Meds & Active Scripts Active Famotidine 20 Mg Tab 20 Mg PO BID 5 Days Hydrocodone-Acetamin 5-325 mg (Hydrocodone/Acetaminophen) 5 Mg-325 Mg Tablet 1 Tab PO Q4H PRN Lovenox Inj (Enoxaparin Sodium) 40 Mg/0.4 Ml Syr 40 Mg SQ Q24H 5 Days Methocarbamol 500 Mg Tab 500 Mg PO Q8HR Gnp Senna Plus 8.6-50 mg (Sennosides-Docusate Sodium) 8.6 Mg-50 Mg Tab 2 Tab PO BID 5 Days Qc Milk of Magnesia (Magnesium Hydroxide) 400 Mg/5 Ml Jovana 30 Ml PO Q6H PRN 5 Days [guaiFENesin ER] 600 MG Tabcr 600 Mg PO BID 5 Days Reported B12 (Cyanocobalamin) 1,000 Mcg Tab 500 Mg Multi Vitamin Daily (Multiple Vitamin) 1 Tab Tab Potassium Chloride ER (Potassium Chloride) 20 Meq Tab 20 Meq PO DAILY Furosemide 40 Mg Tab 40 Mg PO DAILY Theophylline ER 24 HR (Theophylline) 400 Mg Tab 400 Mg PO DAILY Tamsulosin (Tamsulosin HCl) 0.4 Mg Cap 0.4 Mg PO HS Duoneb (Ipratropium-Albuterol Neb) 0.5-2.5 Mg/3 Ml Neb 1 Nebule INH Q4HR NEB Ventolin Hfa 18 GM Inh (Albuterol Sulfate) 90 Mcg/Act Aer 1 Puff INH Q4H Symbicort Inh (Budesonide/Formoterol Fumarate) 80-4.5 Mcg/Act Aero 1 Puff INH Q12HR Review of Systems ROS Limitations: Clinical Condition, Poor Historian HENT: Positive: Congestion Cardiovascular: Positive: Dyspnea on exertion Respiratory: Positive: Cough, Shortness of Breath, Wheezing Physical Exam Narrative General: The patient is a well-developed well-nourished male who arrives in acute distress on examination with tripoding, conversational dyspnea, accessory muscle use. Head and Neck exam: Head is normocephalic atraumatic. Eyes: EOMI, pupils are equal round and reactive to light. Nose: Midline septum with pink mucous membranes Mouth: Dentition unremarkable. Moist mucus membranes. Posterior oropharynx is not erythematous. No tonsillar hypertrophy. Uvula midline. Airway patent. Neck: No palpable lymphadenopathy. No nuchal rigidity. No thyromegaly. Cardiovascular: Regular sounding tachycardia in the 140s to 150s without murmurs, gallops, or rubs. No pulse deficit to the extremities on simultaneous auscultation and palpation of his radial artery. Lungs: Poor air movement bilaterally, soft expiratory wheezes audible anteriorly. Prolonged expiratory phase of breathing is noted. The patient has accessory muscle use noted. The patient is tripoding with nasal flaring. The patient has paroxysmal abdominal breathing. Abdomen: Soft, without tenderness to palpation in all 4 quadrants of the abdomen. No guarding, rebound, or rigidity. Normal bowel sounds are audible, no tenderness on palpation of McBurney's point. The patient has abdominal distention related to central obesity. Extremities: No clubbing or cyanosis. The patient has hyperpigmentation of bilateral lower extremities consistent with venous stasis changes. The patient has 1+ nonpitting edema. 2+ pulses in all 4 extremities. Back: No costovertebral angle tenderness to palpation. Neurologic Exam: Grossly nonfocal. Skin Exam: No rash noted. Intact skin that is warm and diaphoretic. Data Data Last Documented VS Vital Signs Date Time Temp Pulse Resp B/P (MAP) Pulse Ox O2 Delivery O2 Flow Rate FiO2 04/17/17 23:35 101.3 120 18 88/55 (66) 98 Ventilator 50 04/17/17 22:20 15.00 Orders Orders Complete Blood Count With Diff (04/17/17 22:14) Comprehensive Metabolic Panel (04/17/17 22:14) B-Type Natriuretic Peptide (04/17/17 22:14) Act Partial Throm Time (Ptt) (04/17/17 22:14) Prothrombin Time / Inr (Pt) (04/17/17 22:14) Magnesium (Mg) (04/17/17 22:14) Ckmb (Isoenzyme) Profile (04/17/17 22:14) Troponin I (04/17/17 22:14) Arterial Blood Gas (Abg) (04/17/17 22:14) Urinalysis - C+S If Indicated (04/17/17 22:14) Influenzae A/B Antigen (04/17/17 22:14) Iv Access Insert/Monitor (04/17/17 22:14) Electrocardiogram (04/17/17 22:14) Ecg Monitoring (04/17/17 22:14) Oximetry (04/17/17 22:14) Oxygen Administration (04/17/17 22:14) Chest, Single Ap (04/17/17 22:14) Sodium Chloride 0.9% Flush (Ns Flush) (04/17/17 22:15) Albuterol-Ipratropium Neb (Duoneb Neb) (04/17/17 22:15) Resp Bipap / Cpap Non Invas Vt (04/17/17 22:14) Lactic Acid Sepsis Protocol (04/17/17 22:14) Propofol 1000 Mg/100 Ml Inj (Diprivan 10 (04/17/17 22:45) ^ Infusion (04/17/17 22:33) RASS (04/17/17 22:33) Neurological Rass Scale LUCINDA.Q2H (04/17/17 22:33) Sodium Chloride 0.9% Flush (Ns Flush) (04/17/17 22:45) Ng Gastric Tube Insert/Monitor (04/17/17 22:33) Urinary Catheter Insert/Apply (04/17/17 22:33) Etomidate Inj (Amidate Inj) (04/17/17 22:45) Succinylcholine Inj (Quelicin Inj) (04/17/17 22:45) Sodium Chloride 0.9% Flush (Ns Flush) (04/17/17 22:45) Sodium Chlor 0.9% 1000 Ml Inj (Ns 1000 M (04/17/17 22:33) Neurological Rass Scale Q30MX2,Q2HX4,Q4H (04/17/17 22:41) Fentanyl Inj (Fentanyl Inj) (04/17/17 22:45) Fentanyl Drip (Fentanyl Drip) (04/17/17 22:45) Theophylline (Aminophylline) (04/17/17 22:31) Fentanyl Drip (Fentanyl Drip) (04/17/17 22:55) Sodium Chlor 0.9% 1000 Ml Inj (Ns 1000 M (04/17/17 23:15) CKMB (04/17/17 22:31) CKMB% (04/17/17 22:31) Admit Order (Ed Use Only) (04/17/17 23:40) Consult Cardiology (04/17/17 ) Labs Laboratory Tests Test 04/17/17 22:31 04/17/17 23:18 White Blood Count 11.6 TH/MM3 Red Blood Count 5.05 MIL/MM3 Hemoglobin 17.1 GM/DL Hematocrit 50.5 % Mean Corpuscular Volume 100.0 FL Mean Corpuscular Hemoglobin 33.8 PG Mean Corpuscular Hemoglobin Concent 33.8 % Red Cell Distribution Width 13.7 % Platelet Count 237 TH/MM3 Mean Platelet Volume 9.1 FL Neutrophils (%) (Auto) 64.1 % Lymphocytes (%) (Auto) 22.1 % Monocytes (%) (Auto) 13.1 % Eosinophils (%) (Auto) 0.3 % Basophils (%) (Auto) 0.4 % Neutrophils # (Auto) 7.4 TH/MM3 Lymphocytes # (Auto) 2.6 TH/MM3 Monocytes # (Auto) 1.5 TH/MM3 Eosinophils # (Auto) 0.0 TH/MM3 Basophils # (Auto) 0.0 TH/MM3 CBC Comment DIFF FINAL Differential Comment Prothrombin Time 12.0 SEC Prothromb Time International Ratio 1.2 RATIO Activated Partial Thromboplast Time 27.1 SEC Blood Urea Nitrogen 12 MG/DL Creatinine 1.04 MG/DL Random Glucose 128 MG/DL Total Protein 8.7 GM/DL Albumin 4.0 GM/DL Calcium Level 9.0 MG/DL Magnesium Level 2.1 MG/DL Alkaline Phosphatase 224 U/L Aspartate Amino Transf (AST/SGOT) 75 U/L Alanine Aminotransferase (ALT/SGPT) 85 U/L Total Bilirubin 0.8 MG/DL Sodium Level 132 MEQ/L Potassium Level 4.5 MEQ/L Chloride Level 93 MEQ/L Carbon Dioxide Level 32.5 MEQ/L Anion Gap 7 MEQ/L Estimat Glomerular Filtration Rate 74 ML/MIN Lactic Acid Level 2.6 mmol/L Total Creatine Kinase 444 U/L Creatine Kinase MB 8.4 NG/ML Creatine Kinase MB % 1.9 % Troponin I 0.49 NG/ML B-Type Natriuretic Peptide 92 PG/ML Theophylline Level 7.2 MCG/ML Urine Color YELLOW Urine Turbidity CLEAR Urine pH 6.0 Urine Specific [place] 1.035 Urine Protein 300 mg/dL Urine Glucose (UA) NEG mg/dL Urine Ketones TRACE mg/dL Urine Occult Blood TRACE Urine Nitrite NEG Urine Bilirubin NEG Urine Urobilinogen LESS THAN 2.0 MG/DL Urine Leukocyte Esterase NEG Urine RBC LESS THAN 1 /hpf Urine WBC LESS THAN 1 /hpf Urine Squamous Epithelial Cells <1 /hpf Urine Hyaline Casts 9 /lpf Urine Mucus FEW /lpf Microscopic Urinalysis Comment CULT NOT INDICATED MDM Medical Decision Making Medical Screen Exam Complete: Yes Emergency Medical Condition: Yes Medical Record Reviewed: Yes Interpretation(s) Last Impressions Chest X-Ray 04/17/17 5307 Signed Impressions: Service Date/Time: Monday, April 17, 2017 22:38 - CONCLUSION: Appropriate position of the endotracheal tube. Trace atelectasis and effusions of both bases. Michael Rosales MD Differential Diagnosis COPD exacerbation with respiratory failure, versus new-onset congestive heart failure, versus acute coronary syndrome, versus pulmonary embolus Narrative Course During the course of the patients emergency department visit, the patients history, examination, and differential diagnosis were reviewed with the patient. The patient was placed on a monitoring analyst with oximetry and frequent blood pressure monitoring. The patient had IV access obtained and blood work sent for analysis. The patient on arrival is in respiratory distress with conversational dyspnea, accessory muscle use, tripoding, paroxysmal abdominal breathing. Respiratory therapy was available at the bedside to assist with care. The patient was on a nebulizer treatment on arrival. The patient was prepped for placement on BiPAP. The patient was placed on BiPAP very briefly and appeared to continue to decompensate, therefore the patient was prepped for RSI. The patient was noted on arrival to be tachycardic in the 140s to 150s, hypertensive with a blood pressure 187/109. He was afebrile. The patient was provided Solu-Medrol 125 mg IV prior to arrival. The patient was initially provided BiPAP, DuoNeb 3. The patient was not responding well to BiPAP, therefore the patient was prepped for RSI. The patient continued to saturate well on BiPAP therefore he was preoxygenated on this. He was also placed on 12 L nasal cannula O2 during the intubation to assist with apneic oxygenation. The patient had an ECG done that revealed what appeared to be a sinus tachycardia rate of 150 with what was suspicious for ST segment elevation in lead V3, V4, V5. The machine stripper on-call for STEMI alert was called on his cell phone to discuss this further with him. Initially he was not able to receive the ECG and manage, however he was later able to view this and reported that the patient did not meet criteria for a STEMI alert. The patient will be seen by cardiology in consultation. The patient was given aspirin 300 mg HI. The patient had an inch of Nitropaste applied to the chest wall. The patient was intubated by me with an 8 size endotracheal tube at a depth of 23 at the teeth. The patient continued to have poor air movement although his O2 saturations were 99%. The patient was continued on DuoNeb's. The patients laboratory studies were reviewed and remarkable for a white count 11.6, hemoglobin 17.1, platelets 237 with monocyte of 13.1. CMP is remarkable for sodium of 132, chloride 93, CO2 32.5, glucose 128, AST 75, ALT 85, alkaline phosphatase 224, CPK 444, troponin I 0.49, BNP 92. Lactic acid is 2.6. PT 12, PTT 27.1, urinalysis shows 300 protein trace ketones trace occult blood, otherwise unremarkable. Theophylline level is 7.2. Radiology studies were reviewed and remarkable for a chest x-ray postintubation that reveals an appropriate position of the endotracheal tube trace atelectasis and effusions of both bases. The patient was started on additional normal saline IV fluids is no evidence of CHF was noted and the patient's tachypnea is causing increased insensible loss of fluids. The patient had an ABG done after intubation that reveals a pH of 7.201, PCO2 72.4, PO2 472, bicarbonate 27.3. The patient's FiO2 was decreased, respiratory rate increased to further blow off CO2. The patients results were discussed with the patient, including the plan of care. I explained that further testing and/ or monitoring is indicated based on the patients history, examination, and/ or laboratory findings. Therefore, I recommended admission for additional evaluation. The patient expressed understanding and was agreeable with this plan. The patient was admitted to the hospital in critical condition and sent to a bed under the care of the national sales trainer service. Critical Care Narrative Aggregate critical care time was 45 minutes. Time to perform other separately billable procedures was not included in the critical care time. My time did not include minutes spent treating any other patients simultaneously or on activities that did not directly contribute to the patient's treatment. The services I provided to this patient were to treat and/or prevent clinically significant deterioration that could result in: Cardiovascular collapse from acute coronary syndrome, versus cardiac arrhythmia, versus hypoxic brain injury, versus respiratory failure, versus fluid overload I provided critical care services requiring my management, as noted below: Chart data review, documentation time, medication orders and management, vital sign assessments/reviewing monitor data, ordering and reviewing lab tests, ordering and interpreting/reviewing x-rays and diagnostic studies, care of the patient and discussion of the patient with the admitting physicians. Physician Communication Physician Communication The patient's case including history, pertinent physical examination findings, and laboratory studies were discussed with Dr. Vásquez, the machine stripper on- call for STEMI alerts who was called at 22:39. His cell phone was called, however there was no answer, voice male was left. He called back at 22:50. He requested that the patient's ECGs be sent to him for review. A prior EKG as well as the EKG from today was sent to him, however he then called back and told me that he was not able to retrieve the images. He asked me how much ST segment elevation was noted. I explained that in V3, V4, V5, there appears to be between 1-1/[address] segment elevation. He requested an additional ECG be done. This additional EKG was able to be evaluated by him. After reviewing the EKG he did not think that the patient was a STEMI alert. He recommended that the patient be seen in consultation by cardiology. The patient's case including history, pertinent physical examination findings, and laboratory studies were discussed with Dr. Allan. It was agreed that the patient would be admitted to the national sales trainer's service. Diagnosis Primary Impression: COPD (chronic obstructive pulmonary disease) Qualified Codes: J44.9 - Chronic obstructive pulmonary disease, unspecified Additional Impression: Respiratory failure with hypercapnia Qualified Codes: J96.02 - Acute respiratory failure with hypercapnia Admitting Information Admitting Physician Requests: it Madalyn Kirkpatrick MD Apr 17, 2017 22:18
[2017-04-17] MEDS ORDERED: SODIUM CHLOR 0.9% 1000 ML INJ 1,000 ML IV ONE ×2 (22:33→23:15)
[2017-04-17] MEDS ORDERED: ETOMIDATE 20 MG/10 ML VIAL IVP ONE (22:45)
[2017-04-17] MEDS: RESP: ALBUTEROL 2.5 MG/IPRATROPIUM 0.5 MG NEB (SCH) INH ×3 (22:45→22:48)
[2017-04-17] MEDS ORDERED: SUCCINYLCHOLINE CHLORIDE 200 MG/10 ML VIAL IV PUSH ONE (22:45)
[2017-04-17] MEDS ORDERED: PROPOFOL 1000 MG/100 ML INJ 100 ML IV PRN (22:45)
[2017-04-17 22:46] LABS: AUTOMATED NEUTROPHIL # 7.4 TH/MM3 (1.8-7.7); BASOPHIL % 0.4 % (0.0-2.0); EOSINOPHIL % 0.3 % (0.0-4.0); HEMATOCRIT 50.5 % (39.0-51.0); HEMOGLOBIN 17.1 GM/DL (13.0-17.0); LYMPH % 22.1 % (9.0-44.0); LYMPHOCYTE # 2.6 TH/MM3 (1.0-4.8); MEAN CORPUSCULAR HEMOGLOBIN 33.8 PG (27.0-34.0); MEAN CORPUSCULAR HGB CONC 33.8 % (32.0-36.0); MEAN PLATELET VOLUME 9.1 FL (7.0-11.0); MONO % 13.1 % (0.0-8.0); MONOCYTE # 1.5 TH/MM3 (0-0.9); NEUT % 64.1 % (16.0-70.0); PLATELET COUNT 237 TH/MM3 (150-450); RED BLOOD COUNT 5.05 MIL/MM3 (4.50-5.90); RED CELL DISTRIBUTION WIDTH 13.7 % (11.6-17.2); WHITE BLOOD COUNT 11.6 TH/MM3 (4.0-11.0)
--- NOTE | 2017-04-17 22:54 | RADRPT ---
EXAM DATE/TIME: 04/17/2017 22:38 [facility] COMPARISON: CHEST SINGLE AP, February 16, 2017, 6:30. INDICATIONS : Post intubation. MEDICAL HISTORY : None. SURGICAL HISTORY : None. ENCOUNTER: Initial ACUITY: 1 day PAIN SCORE: Non-responsive. LOCATION: Bilateral chest FINDINGS: Tiny bilateral pleural effusions are present with trace basilar atelectasis. Patient is intubated. En dotracheal tube tip is approximately 4 cm above the ritika. No pneumothorax. Heart size stable, withi n normal limits. CONCLUSION: Appropriate position of the endotracheal tube. Trace atelectasis and effusions of both bases. Michael Rosales MD on April 17, 2017 at 22:51 Board Certified Radiologist. This report was verified electronically.
[2017-04-17] MEDS ORDERED: fentaNYL DRIP 250 ML ONE (22:55)
[2017-04-17 22:58] LABS: INTERNATIONAL NORMALIZED RATIO 1.2 RATIO
[2017-04-17] MEDS: fentaNYL DRIP 250 ML IV PRN (23:01)
[2017-04-17 23:15] LABS: AST (GOT) 75 U/L (15-37); BICARBONATE 32.5 MEQ/L (21.0-32.0); BLOOD UREA NITROGEN 12 MG/DL (7-18); CHLORIDE 93 MEQ/L (98-107); CREATININE 1.04 MG/DL (0.60-1.30); GLOMERULAR FILTRATION RATE 74 ML/MIN (>89); GLUCOSE,RANDOM 128 MG/DL (74-106); MAGNESIUM 2.1 MG/DL (1.5-2.5); SODIUM (NA) 132 MEQ/L (136-145); THEOPHYLLINE 7.2 MCG/ML (10.0-20.0)
[2017-04-17 23:16] LABS: ALT (GPT) 85 U/L (12-78)
[2017-04-17 23:20] LABS: ALKALINE PHOSPHATASE 224 U/L (45-117); TOTAL BILIRUBIN ADULT 0.8 MG/DL (0.2-1.0); TOTAL PROTEIN 8.7 GM/DL (6.4-8.2); TROPONIN I 0.49 NG/ML (0.02-0.05)
[2017-04-17 23:22] LABS: LACTIC ACID SEPSIS PROTOCOL 2.6 mmol/L (0.4-2.0)
--- NOTE | 2017-04-17 23:39 | HHI.HP ---
HPI Service Critical Care Medicine Primary Care Physician No Primary Care Physician Admission Diagnosis Diagnosis: Travel History International Travel<30 Days: No Contact w/Intl Traveler <30 Da: No Traveled to Known Affected Are: No History of Present Illness 52 year old male who presents with a history of shortness of breath that began 2 days ago associated with a dry cough. The patient called ambulance services related to the shortness of breath and was noted to be saturating 92% on 2 L nasal cannula O2. The patient is normally on 2 L nasal cannula O2 continuously related to a history of COPD. The patient denies smoking currently. In the emergency department he has received the breathing treatment and IV steroids and was placed on BiPAP without any improvement. Continues to be severely hypoxemic patient was intubated by ED attending. Review of Systems ROS Unobtainable patient is sedated and intubated Past Family Social History Allergies: Coded Allergies: No Known Allergies (Unverified , 04/17/17) Past Medical History COPD Past Surgical History Hernia repair Reported Medications Reported Meds & Active Scripts Active Famotidine 20 Mg Tab 20 Mg PO BID 5 Days Hydrocodone-Acetamin 5-325 mg (Hydrocodone/Acetaminophen) 5 Mg-325 Mg Tablet 1 Tab PO Q4H PRN Lovenox Inj (Enoxaparin Sodium) 40 Mg/0.4 Ml Syr 40 Mg SQ Q24H 5 Days Methocarbamol 500 Mg Tab 500 Mg PO Q8HR Gnp Senna Plus 8.6-50 mg (Sennosides-Docusate Sodium) 8.6 Mg-50 Mg Tab 2 Tab PO BID 5 Days Qc Milk of Magnesia (Magnesium Hydroxide) 400 Mg/5 Ml Jovana 30 Ml PO Q6H PRN 5 Days [guaiFENesin ER] 600 MG Tabcr 600 Mg PO BID 5 Days Reported B12 (Cyanocobalamin) 1,000 Mcg Tab 500 Mg Multi Vitamin Daily (Multiple Vitamin) 1 Tab Tab Potassium Chloride ER (Potassium Chloride) 20 Meq Tab 20 Meq PO DAILY Furosemide 40 Mg Tab 40 Mg PO DAILY Theophylline ER 24 HR (Theophylline) 400 Mg Tab 400 Mg PO DAILY Tamsulosin (Tamsulosin HCl) 0.4 Mg Cap 0.4 Mg PO HS Duoneb (Ipratropium-Albuterol Neb) 0.5-2.5 Mg/3 Ml Neb 1 Nebule INH Q4HR NEB Ventolin Hfa 18 GM Inh (Albuterol Sulfate) 90 Mcg/Act Aer 1 Puff INH Q4H Symbicort Inh (Budesonide/Formoterol Fumarate) 80-4.5 Mcg/Act Aero 1 Puff INH Q12HR Active Ordered Medications Current Medications Medications (Trade) Dose Ordered Sig/[place] Route PRN Reason Start Time Stop Time Status Last Admin Dose Admin Sodium Chloride (NS Flush) 2 ml UNSCH PRN IVF FLUSH AFTER USING IV ACCESS 04/17/17 22:15 Propofol 100 ml @ 3.3 mls/hr TITRATE PRN IV Ordered RASS 04/17/17 22:45 04/17/17 22:45 Sodium Chloride (NS Flush) 2 ml UNSCH PRN IVF FLUSH AFTER USING IV ACCESS 04/17/17 22:45 Sodium Chloride (NS Flush) 2 ml UNSCH PRN IVF FLUSH AFTER USING IV ACCESS 04/17/17 22:45 Sodium Chloride 1,000 ml @ 125 mls/hr Q8H ONCE IV 04/17/17 22:33 04/18/17 06:32 04/17/17 23:34 Fentanyl Citrate 250 ml @ 5 mls/hr TITRATE PRN IV SEDATION 04/17/17 22:45 04/17/17 23:01 Family History Family history significant of malignancy Social History Denies recent smoking, no alcohol or illicit drug abuse Physical Exam Vital Signs Vital Signs Date Time Temp Pulse Resp B/P (MAP) Pulse Ox O2 Delivery O2 Flow Rate FiO2 04/17/17 23:35 101.3 120 18 88/55 (66) 98 Ventilator 50 04/17/17 23:12 128 16 161/84 (109) 99 Ventilator 100 04/17/17 23:09 135 18 155/85 (108) 99 Ventilator 04/17/17 23:04 100 04/17/17 23:02 135 16 107/59 (75) 99 Ventilator 100 04/17/17 22:27 151 18 167/88 (114) 97 04/17/17 22:22 152 35 98 BiPAP 100 04/17/17 22:20 99 BiPAP 100 04/17/17 22:20 98 Simple Mask 15.00 04/17/17 22:14 98.1 140 18 187/109 (135) 98 Physical Exam GENERAL: Well-nourished, well-developed patient, sedated and intubated. SKIN: Warm and dry. HEAD: Normocephalic. EYES: No scleral icterus. No injection or drainage. NECK: Supple, trachea midline. No JVD or lymphadenopathy. CARDIOVASCULAR: Regular rate and rhythm without murmurs, gallops, or rubs. RESPIRATORY: Breath sounds equal bilaterally. No accessory muscle use. GASTROINTESTINAL: Abdomen soft, non-tender, nondistended. MUSCULOSKELETAL: No cyanosis, or edema. BACK: Nontender without obvious deformity. NEURO EXAM: Sedated and intubated, pupils reactive bilaterally Laboratory Laboratory Tests Test 04/17/17 22:31 White Blood Count 11.6 Red Blood Count 5.05 Hemoglobin 17.1 Hematocrit 50.5 Mean Corpuscular Volume 100.0 Mean Corpuscular Hemoglobin 33.8 Mean Corpuscular Hemoglobin Concent 33.8 Red Cell Distribution Width 13.7 Platelet Count 237 Mean Platelet Volume 9.1 Neutrophils (%) (Auto) 64.1 Lymphocytes (%) (Auto) 22.1 Monocytes (%) (Auto) 13.1 Eosinophils (%) (Auto) 0.3 Basophils (%) (Auto) 0.4 Neutrophils # (Auto) 7.4 Lymphocytes # (Auto) 2.6 Monocytes # (Auto) 1.5 Eosinophils # (Auto) 0.0 Basophils # (Auto) 0.0 CBC Comment DIFF FINAL Differential Comment Prothrombin Time 12.0 Prothromb Time International Ratio 1.2 Activated Partial Thromboplast Time 27.1 Blood Urea Nitrogen 12 Creatinine 1.04 Random Glucose 128 Total Protein 8.7 Albumin 4.0 Calcium Level 9.0 Magnesium Level 2.1 Alkaline Phosphatase 224 Aspartate Amino Transf (AST/SGOT) 75 Alanine Aminotransferase (ALT/SGPT) 85 Total Bilirubin 0.8 Sodium Level 132 Potassium Level 4.5 Chloride Level 93 Carbon Dioxide Level 32.5 Anion Gap 7 Estimat Glomerular Filtration Rate 74 Lactic Acid Level 2.6 Total Creatine Kinase 444 Creatine Kinase MB 8.4 Creatine Kinase MB % 1.9 Troponin I 0.49 B-Type Natriuretic Peptide 92 Theophylline Level 7.2 Result Diagram: 04/17/17223004/17/172230 Imaging Last 24 hours Impressions Chest X-Ray 04/17/172213 Signed Impressions: Service Date/Time: Monday, April 17, 2017 22:38 - CONCLUSION: Appropriate position of the endotracheal tube. Trace atelectasis and effusions of both bases. Michael Rosales MD Septic Shock Reassessment Septic shock perfusion: reassessment completed Caprini VTE Risk Assessment Caprini VTE Risk Assessment: Mod/High Risk (score >= 2) Caprini Risk Assessment Model Point Value = 1 Point Value = 2 Point Value = 3 Point Value = 5 Age 41-60 Minor surgery BMI > 25 kg/m2 Swollen legs Varicose veins or History of unexplained or recurrent spontaneous Oral contraceptives or hormone replacement Sepsis (< 1 month) Serious lung disease, including pneumonia (< 1 month) Abnormal pulmonary function Acute myocardial infarction Congestive heart failure (< 1 month) History of inflammatory bowel disease Medical patient at bed rest Age 61-74 Arthroscopic surgery Major open surgery (> 45 min) Laparoscopic surgery (> 45 min) Malignancy Confined to bed (> 72 hours) Immobilizing plaster cast Central venous access Age >= 75 History of VTE Family history of VTE Factor V Leiden Prothrombin [id number] Lupus anticoagulant Anticardiolipin antibodies Elevated serum homocysteine Heparin-induced thrombocytopenia Other congenital or acquired thrombophilia Stroke (< 1 month) Elective arthroplasty Hip, pelvis, or leg fracture Acute spinal cord injury (< 1 month) Prophylaxis Regimen Total Risk Factor Score Risk Level Prophylaxis Regimen 0-1 Low Early ambulation 2 Moderate Order ONE of the following: *Sequential Compression Device (SCD) *Heparin 5000 units SQ BID 3-4 Higher Order ONE of the following medications: *Heparin 5000 units SQ TID *Enoxaparin/Lovenox 40 mg SQ daily (WT < 150 kg, CrCl > 30 mL/min) *Enoxaparin/Lovenox 30 mg SQ daily (WT < 150 kg, CrCl > 10-29 mL/min) *Enoxaparin/Lovenox 30 mg SQ BID (WT < 150 kg, CrCl > 30 mL/min) AND/OR *Sequential Compression Device (SCD) 5 or more Highest Order ONE of the following medications: *Heparin 5000 units SQ TID (Preferred with Epidurals) *Enoxaparin/Lovenox 40 mg SQ daily (WT < 150 kg, CrCl > 30 mL/min) *Enoxaparin/Lovenox 30 mg SQ daily (WT < 150 kg, CrCl > 10-29 mL/min) *Enoxaparin/Lovenox 30 mg SQ BID (WT < 150 kg, CrCl > 30 mL/min) AND *Sequential Compression Device (SCD) Assessment and Plan Assessment and Plan Respiratory failure - COPD exacerbation - Broad-spectrum antibiotics - IV steroids - DuoNeb scheduled and when necessary - SBT daily when hypercarbia improves - Continue home meds Hypertension - Resume Lasix when off IV fluids Hyperglycemia of critical illness - Insulin sliding scale BPH - Tamsulosin DVT GI prophylaxis - Teds SCDs - Lovenox - IV Pepcid Critical Care: The total critical care time was 35 minutes. Time to perform other separately billable procedures was not included in the critical care time. Jeremy Allan MD Apr 17, 2017 23:39
[2017-04-18] VITALS (25 sets, daily range): BP systolic 87–139; BP diastolic 51–87; PULSE 63–104; RESP 18–19; TEMP 100; O2SAT 95–100
[2017-04-18] MEDS ORDERED: SENNOSIDES 8.6 MG TAB PO PRN (00:30)
[2017-04-18] MEDS ORDERED: MISCELLANEOUS NURSING INFORMATION XX SCH (00:30)
[2017-04-18] MEDS ORDERED: MAGNESIUM HYDROXIDE SUSP 30 ML CUP PO PRN (00:30)
[2017-04-18] MEDS ORDERED: CHLORHEXIDINE GLUCONATE 2 % 1 PACK (2 CLOTHS) TOP PRN (00:30)
[2017-04-18] MEDS ORDERED: NITROGLYCERIN 2% OINT 1 GM PACKET TOPICAL ONE (00:30)
[2017-04-18] MEDS ORDERED: SODIUM CHLORIDE 0.9% FLUSH 10 ML FLUSH IV FLUSH PRN (00:30)
[2017-04-18] MEDS ORDERED: BISACODYL 10 MG SUPP RECTAL PRN (00:30)
[2017-04-18] MEDS ORDERED: ONDANSETRON HCL 4 MG/2 ML VIAL IV PUSH PRN (00:30)
[2017-04-18] MEDS ORDERED: MIDAZOLAM HCL 2 MG/2 ML VIAL IV PUSH PRN (00:30)
[2017-04-18] MEDS ORDERED: ASPIRIN 300 MG SUPP RECTAL ONE (00:30)
[2017-04-18] MEDS ORDERED: LACTULOSE SYRUP 20 GM/30 ML CUP PO PRN (00:30)
[2017-04-18] MEDS ORDERED: GLUCAGON 1 MG/ML VIAL OTHER PRN (00:45)
[2017-04-18] MEDS ORDERED: DEXTROSE 50% IN WATER 50 ML VIAL(D50) IV PUSH PRN (00:45)
[2017-04-18] MEDS: RESP: ALBUTEROL 2.5 MG/IPRATROPIUM 0.5 MG NEB (PRN) INH (01:05)
[2017-04-18] MEDS: SODIUM CHLOR 0.9% 1000 ML INJ 1,000 ML IV SCH ×3 (01:22→14:17)
[2017-04-18] MEDS: ENOXAPARIN SODIUM 40 MG/0.4 ML SYRINGE SQ SCH (01:22)
[2017-04-18] MEDS: PIPERACIL-TAZO 4.5 GM PREMIX 100 ML IV SCH ×4 (01:23→21:38)
[2017-04-18] MEDS: methylPREDNISolone SOD SUCC 40 MG/1 ML VIAL IV PUSH SCH ×2 (01:23→11:24)
[2017-04-18 01:43] LABS: BILIRUBIN, URINE NEG (NEG); BLOOD, URINE TRACE (NEG); GLUCOSE,URINE NEG (NEG); HYALINE CAST, URINE 9 /lpf (RARE); KETONE, URINE TRACE mg/dL (NEG); MUCUS URINE FEW /lpf (OCC); NITRITE,URINE NEG (NEG); SQUAMOUS EPITHELIAL CELL URINE <1 /hpf (0-5); URINE COLOR YELLOW (YELLW/STRAW); URINE LEUKOCYTE ESTERASE NEG (NEG)
--- NOTE | 2017-04-18 03:05 | RADRPT ---
EXAM DATE/TIME: 04/18/2017 02:48 [facility] COMPARISON: CHEST SINGLE AP, April 17, 2017, 22:38. INDICATIONS : Endotrachial tube placement. MEDICAL HISTORY : None. SURGICAL HISTORY : None. ENCOUNTER: Subsequent ACUITY: 2 days PAIN SCORE: Non-responsive. LOCATION: Bilateral chest FINDINGS: The cardiac silhouette is normal in transverse diameter. The lungs are free of acute parenchymal opac ity. No effusions are identified. Endotracheal tube is in good position above the ritika. A nasogastr ic tube is in place with its tip in the stomach. CONCLUSION: 1. Satisfactory position of endotracheal tube as above. Edison Garcia MD on April 18, 2017 at 3:02 Board Certified Radiologist. This report was verified electronically.
[2017-04-18] MEDS: PROPOFOL 1000 MG/100 ML INJ 100 ML IV PRN ×4 (03:07→18:32)
[2017-04-18] MEDS: AZITHROMYCIN INJ 500 MG in SODIUM CHLOR 0.9% 250 ML INJ 250 ML IV SCH (03:16)
[2017-04-18] MEDS: CHLORHEXIDINE GLUCONATE 2 % 1 PACK (2 CLOTHS) TOP SCH (03:16)
[2017-04-18] MEDS: RESP: ALBUTEROL 2.5 MG/IPRATROPIUM 0.5 MG NEB (SCH) INH ×5 (04:11→20:30)
[2017-04-18] MEDS: METHOCARBAMOL 500 MG TAB PO SCH ×3 (06:00→21:39)
[2017-04-18] MEDS: fentaNYL DRIP 250 ML IV PRN ×3 (06:25→18:32)
[2017-04-18] MEDS: INSULIN NovoLIN REGULAR SUPPLEMENTAL SCALE SQ SCH ×4 (08:00→21:00)
[2017-04-18] MEDS: BUDESONIDE-FORMOTEROL 80/4.5 MCG INHALER INH SCH ×2 (09:00→21:00)
[2017-04-18] MEDS: guaiFENesin E.R. 600 MG TAB PO SCH ×2 (09:00→21:00)
[2017-04-18] MEDS: SODIUM CHLORIDE 0.9% FLUSH 10 ML FLUSH IV FLUSH SCH ×2 (09:06→21:39)
[2017-04-18] MEDS: ARTIFICIAL TEARS OPTH SOLN 15 ML BTL EACH EYE SCH ×3 (09:07→16:35)
[2017-04-18] MEDS: FAMOTIDINE 20 MG/2 ML VIAL IV PUSH SCH ×2 (09:07→21:39)
[2017-04-18] MEDS: DOCUSATE SODIUM 50 MG/SENNA 8.6 MG TAB PO SCH ×2 (11:24→21:39)
[2017-04-18] MEDS: THEOPHYLLINE 200 MG EXTENDED RELEASE CAP PO SCH (11:24)
[2017-04-18] MEDS ORDERED: ASPIRIN EC 81 MG TABEC PO ONE (15:45)
--- NOTE | 2017-04-18 15:54 | HHI.CCPN ---
Subjective Remarks/Hospital Course 52 year old male who presents with a history of shortness of breath that began 2 days ago associated with a dry cough. The patient called ambulance services related to the shortness of breath and was noted to be saturating 92% on 2 L nasal cannula O2. The patient is normally on 2 L nasal cannula O2 continuously related to a history of COPD. The patient denies smoking currently. In the emergency department he has received the breathing treatment and IV steroids and was placed on BiPAP without any improvement. Continues to be severely hypoxemic patient was intubated by ED attending. Subjective: 04/18: Afebrile .The patient remains intubated and sedated. Maintaining oxygen saturation of 9697% on FiO2 40%. Objective Vital Signs Date Time Temp Pulse Resp B/P (MAP) Pulse Ox O2 Delivery O2 Flow Rate FiO2 04/18/17 15:45 99 40 04/18/17 13:00 94.5 72 18 100/63 (75) 04/18/17 00:18 Ventilator 04/17/17 22:20 15.00 Intake and Output 04/18/17 04/18/17 04/19/17 08:00 16:00 00:00 Intake Total 2067 ml Output Total 100 ml Balance 1967 ml Result Diagram: 04/17/17 2231 04/17/17 2231 Other Results Microbiology Date/Time Source Procedure Growth Status 04/17/17 22:40 Nasal Aspirate Influenza Types A,B Antigen (JINA) - Final NEGATIVE FOR FLU A AND B ANTIGEN.... Complete 04/17/17 23:18 Urine Catheterized Urine Legionella Antigen - Final PRESUMPTIVE NEGATIVE FOR LEGIONELLA P... Complete 04/17/17 23:18 Urine Catheterized Urine Streptococcus pneumoniae Antigen (M - Final PRESUMPTIVE NEGATIVE FOR STREPTOCOCCU... Complete Laboratory Tests Test 04/17/17 22:59 Blood Gas Puncture Site LT RADIAL Blood Gas Patient Temperature 98.6 Blood Gas HCO3 27 mmol/L (22-26) Blood Gas Base Excess 0.1 mmol/L (-2-2) Blood Gas Oxygen Saturation 98 % (90-100) Arterial Blood pH 7.20 (7.380-7.420) Arterial Blood Partial Pressure CO2 72 mmHg (38-42) Arterial Blood Partial Pressure O2 472 mmHG (61-120) Arterial Blood Oxygen Content 24.3 Vol % (12.0-20.0) Arterial Blood Carboxyhemoglobin 0.8 % (0-4) Arterial Blood Methemoglobin 0.7 % (0-2) Blood Gas Hemoglobin 16.8 G/DL (12.0-16.0) Oxygen Delivery Device VENT Blood Gas Ventilator Setting SEE COMMENTS Blood Gas Inspired Oxygen 100 % Imaging Last 24 hours Impressions Chest X-Ray 04/17/17 [id number] Signed Impressions: Service Date/Time: Monday, April 17, 2017 22:38 - CONCLUSION: Appropriate position of the endotracheal tube. Trace atelectasis and effusions of both bases. Michael Rosales MD Objective Remarks GENERAL: Well-nourished, well-developed male patient, sedated and intubated. SKIN: Warm and dry. HEAD: Normocephalic. EYES: No scleral icterus. No injection or drainage. NECK: Supple, trachea midline. No JVD or lymphadenopathy. CARDIOVASCULAR: Regular rate and rhythm without murmurs, gallops, or rubs. Telemetry sinus rhythm RESPIRATORY: Breath sounds equal bilaterally. No accessory muscle use. GASTROINTESTINAL: Abdomen soft, protuberant, non-tender, nondistended. MUSCULOSKELETAL: No cyanosis, or edema. NEURO EXAM: RASS -2 Sedated and intubated, pupils reactive bilaterally A/P Assessment and Plan Respiratory failure - COPD exacerbation - Broad-spectrum antibiotics - IV steroids - DuoNeb scheduled and when necessary - SBT daily when hypercarbia improves - Continue home meds Hypertension - Resume Lasix when off IV fluids Hyperglycemia of critical illness - Insulin sliding scale BPH - Tamsulosin DVT GI prophylaxis - Teds SCDs - Lovenox - IV Pepcid Critical Care: Level 3 Physician Marisel Galarza MD Apr 18, 2017 15:54
--- NOTE | 2017-04-18 17:58 | MB ---
cc: DEANDRE RESENDIZ M.D. DATE OF CONSULTATION 04/18/2017 HISTORY OF THE PRESENT ILLNESS Ron is a 52-year-old gentleman currently intubated. I did discuss his case with Dr. Madalyn Kirkpatrick yesterday when he presented to the emergency room with chief complaint of severe shortness of breath beginning two days prior to admission associated with dry cough. Sats 92% on 2 liters. Per EMS on route to the ER the patient was not able to communicate clearly due to severe dyspnea in the ER. I cannot obtain his review of systems due to his current status of being intubated, so remainder of the history is determined from the chart. PAST MEDICAL HISTORY The patient has a history of: 1. "Significant" COPD. 2. Obstructive sleep apnea on home BiPAP. 3. Benign prostatic hypertrophy. 4. History of pneumonia virtual assistant with MRSA. 5. Chronic pedal edema. 6. Previous ejection fraction February 2017 was 50-55%. 7. History of hiatal hernia. SOCIAL HISTORY He admits to alcohol use. Denies tobacco use. ALLERGIES None. MEDICATIONS PRIOR TO ADMISSION 1. Famotidine 20 mg b.i.d. 2. Hydrocodone. 3. Lovenox. 4. Methocarbamol. 5. B12. 6. Multivitamin. 7. Potassium chloride. 8. Furosemide 40 daily. 9. Theophylline. 10. Tamsulosin. 11. DuoNeb. 12. Ventolin. 13. Symbicort. Medications in the hospital: 1. Symbicort. 2. Theophylline. 3. Pepcid 20 daily. 4. Robaxin. 5. Piperacillin / Tazobactam. 6. He is given aspirin suppository 300 milligrams today. 7. Propofol drip. 8. Lovenox 40 subcutaneous q.24h. 9. Fentanyl drip. PHYSICAL EXAMINATION VITAL SIGNS: Blood pressure 100/63, pulse 72, respiratory rate 18, saturation is 99% on 40% oxygen, temperature 94.5 ranging between 94.5 and 97.7. GENERAL: He is intubated and sedated. NECK: Supple. No JVD. No bruit. CARDIOVASCULAR: Normal S1-S2. No murmurs, rubs, or gallops. LUNGS: Notable for decreased air movement bilaterally. ABDOMEN: Soft and nontender. Nondistended with positive bowel sounds. EXTREMITIES: No lower extremity edema. IMAGING Chest x-ray shows trace atelectasis and effusion of both bases. Repeat chest x-ray today satisfactory position of endotracheal tube as above. Lungs are free of acute parenchymal opacity. No effusions are identified. LABORATORY DATA White count 11.6, hemoglobin 17.1, hematocrit 50.5. Platelet count 237. Sodium 132, potassium 4.5, chloride 93, bicarbonate 32.5, BUN 12, creatinine 1.04, glucose 128, AST 75, ALT 85. Troponin 0.49 initially. Albumin 4.0. Second troponin 2.68. Third troponin 1.96. BNP is 92. Lactic acid 2.6. Coagulation, INR is 1.2. Blood gas from yesterday pH 7.20, pCO2 of 72, pO2 of 472. EKG on admission. Sinus tachycardia at 136 beats per minute with inferior Q-waves and anterior septal Q-waves, does not appear to be any acute ischemic changes. EKG today 06:20 a.m. shows inferior Q-waves, poor R-wave progression, nonspecific ST-T wave changes. He has the following diagnoses: DIAGNOSES 1. Non-ST elevation myocardial infarction. 2. Hypercapnic respiratory failure. 3. stenosis. 4. Hypoxia. 5. Hyponatremia. 6. Proteinuria. 7. Elevated liver function tests. 8. Hyperglycemia. 9. Polycythemia. 10. Elevated white count. DISCUSSION At this point in time it is indeterminate whether the patient has a primary obstructive etiology to his elevated troponin and/or do to increased demand or decreased oxygen supply from hypoxia. Suspect that his troponin elevation is probably related to some degree of baseline coronary disease but mostly secondary to hypercapnic respiratory failure with severe hypoxia. The patient is currently intubated and therefore I cannot assess his symptoms further. I will discuss with him when he is extubated risks and benefits of left heart catheterization. In the meantime I agree with medical management with aspirin. The troponins are trending down with improved oxygenation. If the patient does become unstable in any way would recommend starting heparin drip. Statins are contraindicated due to elevated liver function tests. Beta-blockers are contraindicated due to severe COPD and hypercapnic respiratory failure. Will continue to follow. MD DUANE Cao/COLIN /3:29 PM /5:14 PM
--- NOTE | 2017-04-18 21:03 | EKG ---
Date Performed: 04/18/2017 Time Performed: 07:26:10 PTAGE: 52 years EKG: Sinus rhythm LOW QRS VOLTAGE LEFT ANTERIOR FASCICULAR BLOCK POSSIBLE ANTERIOR MYOCARDIAL INFARCTION , OF INDETERM INATE AGE INFERIOR MYOCARDIAL INFARCTION , OF INDETERMINATE AGE ABNORMAL ECG Compared to prior tracin g no significant change PREVIOUS TRACING : 04/18/2017 00.48 DOCTOR: Dontrell Nielsen Interpretating Date/Time 04/18/2017 21:03:09
--- NOTE | 2017-04-18 21:28 | EKG ---
Date Performed: 04/18/2017 Time Performed: 00:48:25 PTAGE: 52 years EKG: SINUS TACHYCARDIA MARKED RIGHT AXIS DEVIATION LOW QRS VOLTAGE ANTERIOR MYOCARDIAL INFARCTIO N INFERIOR MYOCARDIAL INFARCTION ABNORMAL ECG PREVIOUS TRACING : 04/17/2017 23.01 Compared to prior tracing no significant change DOCTOR: Dontrell Nielsen Interpretating Date/Time 04/18/2017 21:26:37
--- NOTE | 2017-04-18 21:33 | EKG ---
Date Performed: 04/17/2017 Time Performed: 23:01:35 PTAGE: 52 years EKG: SINUS TACHYCARDIA INFERIOR MYOCARDIAL INFARCTION ANTEROLATERAL MYOCARDIAL INFARCTION PREVIOUS TRACING : 02/17/2017 18.43 Compared to prior tracing no significant change DOCTOR: Dontrell Nielsen Interpretating Date/Time 04/18/2017 21:31:46
--- NOTE | 2017-04-18 21:35 | EKG ---
Date Performed: 04/17/2017 Time Performed: 22:30:34 PTAGE: 52 years EKG: PROBABLY SINUS TACHYCARDIA LOW QRS VOLTAGE IN EXTREMITY LEADS ANTERIOR MYOCARDIAL INFARCTIO N Compared to the PREVIOUS TRACING rate faster DOCTOR: Dontrell Nielsen Interpretating Date/Time 04/18/2017 21:34:31
[2017-04-18] MEDS: TAMSULOSIN HCL 0.4 MG CAP PO SCH (21:50)
[2017-04-19] VITALS (40 sets, daily range): BP systolic 102–178; BP diastolic 62–93; PULSE 66–140; RESP 9–27; TEMP 99.2; O2SAT 90–99
[2017-04-19] MEDS: PROPOFOL 1000 MG/100 ML INJ 100 ML IV PRN ×2 (00:14→05:40)
[2017-04-19] MEDS: ENOXAPARIN SODIUM 40 MG/0.4 ML SYRINGE SQ SCH (01:27)
[2017-04-19] MEDS: PIPERACIL-TAZO 4.5 GM PREMIX 100 ML IV SCH ×4 (01:27→21:20)
[2017-04-19] MEDS: AZITHROMYCIN INJ 500 MG in SODIUM CHLOR 0.9% 250 ML INJ 250 ML IV SCH ×2 (01:27→23:17)
[2017-04-19] MEDS: methylPREDNISolone SOD SUCC 40 MG/1 ML VIAL IV PUSH SCH ×3 (01:27→23:16)
[2017-04-19] MEDS: CHLORHEXIDINE GLUCONATE 2 % 1 PACK (2 CLOTHS) TOP SCH (01:28)
[2017-04-19] MEDS: RESP: ALBUTEROL 2.5 MG/IPRATROPIUM 0.5 MG NEB (SCH) INH ×7 (01:49→23:59)
[2017-04-19 04:24] LABS: AUTOMATED NEUTROPHIL # 10.6 TH/MM3 (1.8-7.7); HEMATOCRIT 39.7 % (39.0-51.0); HEMOGLOBIN 13.3 GM/DL (13.0-17.0); LYMPH % 4.1 % (9.0-44.0); LYMPHOCYTE # 0.5 TH/MM3 (1.0-4.8); MEAN CELL VOLUME 100.6 FL (80.0-100.0); MEAN CORPUSCULAR HEMOGLOBIN 33.7 PG (27.0-34.0); MEAN CORPUSCULAR HGB CONC 33.5 % (32.0-36.0); MONO % 7.5 % (0.0-8.0); MONOCYTE # 0.9 TH/MM3 (0-0.9); NEUT % 88.4 % (16.0-70.0); PLATELET COUNT 168 TH/MM3 (150-450); RED BLOOD COUNT 3.95 MIL/MM3 (4.50-5.90); RED CELL DISTRIBUTION WIDTH 13.7 % (11.6-17.2)
[2017-04-19 04:57] LABS: ALBUMIN 2.8 GM/DL (3.4-5.0); ALKALINE PHOSPHATASE 117 U/L (45-117); ALT (GPT) 66 U/L (12-78); AST (GOT) 88 U/L (15-37); BICARBONATE 26.9 MEQ/L (21.0-32.0); BLOOD UREA NITROGEN 28 MG/DL (7-18); CALCIUM 7.7 MG/DL (8.5-10.1); CHLORIDE 105 MEQ/L (98-107); CREATININE 1.05 MG/DL (0.60-1.30); GLOMERULAR FILTRATION RATE 74 ML/MIN (>89); GLUCOSE,RANDOM 145 MG/DL (74-106); MAGNESIUM 2.3 MG/DL (1.5-2.5); PHOSPHORUS 3.7 MG/DL (2.5-4.9); SODIUM (NA) 138 MEQ/L (136-145); TOTAL BILIRUBIN ADULT 0.5 MG/DL (0.2-1.0); TOTAL PROTEIN 6.3 GM/DL (6.4-8.2)
[2017-04-19 05:23] LABS: TROPONIN I 1.26 NG/ML (0.02-0.05)
--- NOTE | 2017-04-19 05:29 | RADRPT ---
EXAM DATE/TIME: 04/19/2017 04:39 [facility] COMPARISON: CHEST SINGLE AP, April 18, 2017, 2:48. INDICATIONS : Shortness of breath MEDICAL HISTORY : None. SURGICAL HISTORY : None. ENCOUNTER: Subsequent ACUITY: 3 days PAIN SCORE: Non-responsive. LOCATION: Bilateral chest FINDINGS: A single view of the chest demonstrates the lungs to be symmetrically aerated without evidence of mas s, infiltrate or effusion. The cardiomediastinal contours are unremarkable. Osseous structures are intact. Support lines and tubes are in satisfactory position. CONCLUSION: 1. No acute cardiopulmonary disease. Edison Garcia MD on April 19, 2017 at 5:27 Board Certified Radiologist. This report was verified electronically.
[2017-04-19] MEDS: METHOCARBAMOL 500 MG TAB PO SCH ×3 (05:40→23:16)
[2017-04-19] MEDS: fentaNYL DRIP 250 ML IV PRN (05:41)
[2017-04-19] MEDS: THEOPHYLLINE 200 MG EXTENDED RELEASE CAP PO SCH (07:47)
[2017-04-19] MEDS: SODIUM CHLORIDE 0.9% FLUSH 10 ML FLUSH IV FLUSH SCH ×2 (07:48→21:20)
[2017-04-19] MEDS: DOCUSATE SODIUM 50 MG/SENNA 8.6 MG TAB PO SCH ×2 (07:48→23:16)
[2017-04-19] MEDS: ARTIFICIAL TEARS OPTH SOLN 15 ML BTL EACH EYE SCH ×3 (07:48→16:52)
[2017-04-19] MEDS: FAMOTIDINE 20 MG/2 ML VIAL IV PUSH SCH ×2 (07:48→21:20)
[2017-04-19] MEDS: INSULIN NovoLIN REGULAR SUPPLEMENTAL SCALE SQ SCH ×4 (07:48→21:00)
[2017-04-19] MEDS: guaiFENesin E.R. 600 MG TAB PO SCH ×2 (08:04→23:16)
[2017-04-19] MEDS: BUDESONIDE-FORMOTEROL 80/4.5 MCG INHALER INH SCH ×2 (08:05→21:00)
[2017-04-19] MEDS: ASPIRIN EC 81 MG TABEC PO SCH (08:25)
[2017-04-19] MEDS ORDERED: ETOMIDATE 40 MG/20 ML VIAL ONE (08:56)
[2017-04-19] MEDS ORDERED: ROCURONIUM INJ 50 MG/5 ML VIAL ONE (08:56)
[2017-04-19] MEDS ORDERED: SUCCINYLCHOLINE CHLORIDE 200 MG/10 ML VIAL ONE (08:57)
[2017-04-19] MEDS ORDERED: METOPROLOL TARTRATE 5 MG/5 ML VIAL ONE (09:02)
[2017-04-19] MEDS ORDERED: ROCURONIUM INJ 100 MG/10 ML VIAL IV PUSH ONE (09:15)
[2017-04-19] MEDS ORDERED: SUCCINYLCHOLINE CHLORIDE 200 MG/10 ML VIAL IV PUSH ONE (09:15)
[2017-04-19] MEDS ORDERED: fentaNYL CITRATE 250 MCG/5 ML AMP IV PUSH ONE (09:15)
[2017-04-19] MEDS ORDERED: ETOMIDATE 20 MG/10 ML VIAL IV PUSH ONE (09:15)
[2017-04-19] MEDS: METOPROLOL TARTRATE 5 MG/5 ML VIAL IV PUSH PRN ×2 (09:24→21:17)
--- NOTE | 2017-04-19 10:46 | HHI.CCPN ---
Subjective Remarks/Hospital Course 52 year old male who presents with a history of shortness of breath that began 2 days ago associated with a dry cough. The patient called ambulance services related to the shortness of breath and was noted to be saturating 92% on 2 L nasal cannula O2. The patient is normally on 2 L nasal cannula O2 continuously related to a history of COPD. The patient denies smoking currently. In the emergency department he has received the breathing treatment and IV steroids and was placed on BiPAP without any improvement. Continues to be severely hypoxemic patient was intubated by ED attending. Subjective: 04/18: Afebrile .The patient remains intubated and sedated. Maintaining oxygen saturation of 9697% on FiO2 40%. 04/19: The patient self extubated, O2 saturation in the 50's. Patient placed on nonrebreather mask 100% and then advance to BiPAP currently at 50%. She is alert and oriented following commands. O2 saturation now 97%. ABG pending. Will continue to wean. 1 extubation patient was noted to be, hypertensive extremely tachycardic heart rate in the 140s metoprolol initiated 2.5 mg every 6hrs. if tolerated will begin beta blockers (Metoprolol) PO, selective Beta 1. Objective Vital Signs Date Time Temp Pulse Resp B/P (MAP) Pulse Ox O2 Delivery O2 Flow Rate FiO2 04/19/17 09:09 98 50 04/19/17 06:00 75 04/19/17 04:00 97.5 18 105/62 (76) 04/18/17 00:18 Ventilator 04/17/17 22:20 15.00 Intake and Output 04/19/17 04/19/17 04/20/17 08:00 16:00 00:00 Intake Total 350 ml Output Total 375 ml Balance -25 ml Result Diagram: 04/19/17 0335 04/19/17 0335 Other Results Microbiology Date/Time Source Procedure Growth Status 04/17/17 22:40 Nasal Aspirate Influenza Types A,B Antigen (JINA) - Final NEGATIVE FOR FLU A AND B ANTIGEN.... Complete 04/17/17 23:18 Urine Catheterized Urine Legionella Antigen - Final PRESUMPTIVE NEGATIVE FOR LEGIONELLA P... Complete 04/17/17 23:18 Urine Catheterized Urine Streptococcus pneumoniae Antigen (M - Final PRESUMPTIVE NEGATIVE FOR STREPTOCOCCU... Complete Imaging Last 24 hours Impressions Chest X-Ray 04/17/17 [id number] Signed Impressions: Service Date/Time: Monday, April 17, 2017 22:38 - CONCLUSION: Appropriate position of the endotracheal tube. Trace atelectasis and effusions of both bases. Michael Rosales MD Objective Remarks GENERAL: Well-nourished, well-developed male patient on BIPAP SKIN: Warm and dry. HEAD: Normocephalic. EYES: No scleral icterus. No injection or drainage. NECK: Supple, trachea midline. No JVD or lymphadenopathy. CARDIOVASCULAR: Regular rate and rhythm without murmurs, gallops, or rubs. Telemetry sinus rhythm RESPIRATORY: Breath sounds equal bilaterally. No accessory muscle use. Early on BiPAP 18/5.40 GASTROINTESTINAL: Abdomen soft, protuberant, non-tender, nondistended. MUSCULOSKELETAL: No cyanosis, or edema. NEURO EXAM: GCS 15. RASS 0. Doing extremities 4, following commands A/P Assessment and Plan Respiratory failure COPD exacerbation - Continue Broad-spectrum antibiotics - Continue IV steroids - DuoNeb scheduled and when necessary - Self extubation 04/19. Currently on BiPAP 14/5.40, continue to wean - Continue home meds -Spiriva, theophylline, Symbicort GI - Patient chips and advance to clear liquid diet Hypertension NSTEMI - Resume Lasix when off IV fluids - Plan for left heart catheterization 04/20/17 -Dr. Vásquez following -Metoprolol 2.5 mg IV q 6 hrs PRN Hyperglycemia of critical illness - Insulin sliding scale BPH - Tamsulosin DVT GI prophylaxis - Teds SCDs - Lovenox - IV Pepcid Critical Care: Level 2 Physician Marisel Galarza MD Apr 19, 2017 10:46
[2017-04-19] MEDS: SODIUM CHLOR 0.9% 1000 ML INJ 1,000 ML IV SCH (12:39)
--- NOTE | 2017-04-19 17:02 | PD.CARD.PN ---
Subjective Subjective Remarks denies chest pain, on bipap in nad Objective Medications Current Medications Medications (Trade) Dose Ordered Sig/[place] Route Start Time Stop Time Status Last Admin (Symbicort 80-4.5 Mcg Inh) 1 puff Q12HR INH 04/18/17 09:00 (Lovenox Inj) 40 mg Q24H SQ 04/18/17 00:15 Future Hold 04/19/17 01:27 (Robaxin) 500 mg Q8HR PO 04/18/17 06:00 04/19/17 12:49 (Flomax) 0.4 mg HS PO 04/18/17 21:00 04/18/17 21:50 (Dakota-24) 400 mg DAILY PO 04/18/17 09:00 04/19/17 07:47 (Mucinex Er) 600 mg BID PO 04/18/17 09:00 Sodium Chloride 1,000 ml @ 84 mls/hr [id number] IV 04/18/17 00:20 04/19/17 12:39 (NS Flush) 2 ml UNSCH PRN IV FLUSH 04/18/17 00:30 (NS Flush) 2 ml BID IV FLUSH 04/18/17 09:00 04/19/17 07:48 (Tylenol) 650 mg Q6H PRN PO 04/18/17 00:30 (Pepcid Inj) 20 mg Q12HR IV PUSH 04/18/17 09:00 04/19/17 07:48 (Versed Inj) 2 mg Q1H PRN IV PUSH 04/18/17 00:30 (Tears Naturale Opth Soln) 1 drop TID EACH EYE 04/18/17 09:00 04/19/17 12:49 (Zofran Inj) 4 mg Q6H PRN IV PUSH 04/18/17 00:30 (Duoneb Neb) 1 ampule Q4HR NEB INH 04/18/17 04:00 04/19/17 13:59 (Duoneb Neb) 1 ampule Q2HR NEB PRN INH 04/18/17 00:30 04/18/17 01:05 Miscellaneous Information 1 Q361D XX 04/18/17 00:30 04/18/17 00:30 (Chlorhexidine 2% Cloth) 3 pack Taper DAILY@04 TOP 04/18/17 04:00 04/14/18 03:59 04/19/17 01:28 (Chlorhexidine 2% Cloth) 3 pack UNSCH PRN TOP 04/18/17 00:30 (Edna-Colace) 1 tab BID PO 04/18/17 09:00 04/19/17 07:48 (Milk Of Magnesia Liq) 30 ml Q12H PRN PO 04/18/17 00:30 (Senokot) 17.2 mg Q12H PRN PO 04/18/17 00:30 (Dulcolax Supp) 10 mg DAILY PRN RECTAL 04/18/17 00:30 (Lactulose Liq) 30 ml DAILY PRN PO 04/18/17 00:30 Piperacillin Sod/ Tazobactam Sod 100 ml @ 200 mls/hr Q6H IV 04/18/17 02:00 04/19/17 12:49 Azithromycin 500 mg/Sodium Chloride 250 ml @ 250 mls/hr Q24H IV 04/18/17 00:30 04/19/17 01:27 (SoluMEDROL INJ) 40 mg Q12H IV PUSH 04/18/17 00:30 04/19/17 12:39 (D50w (Vial) Inj) 50 ml UNSCH PRN IV PUSH 04/18/17 00:45 (Glucagon Inj) 1 mg UNSCH PRN OTHER 04/18/17 00:45 (NovoLIN R SUPPLEMENTAL SCALE) 1 ACHS SLIDING SCALE SQ 04/18/17 08:00 (Ecotrin Ec) 81 mg DAILY PO 04/19/17 09:00 04/19/17 08:25 (Lopressor Inj) 2.5 mg Q6H PRN IV PUSH 04/19/17 09:15 04/19/17 09:24 Vital Signs / I&O Vital Signs Date Time Temp Pulse Resp B/P (MAP) Pulse Ox O2 Delivery O2 Flow Rate FiO2 04/19/17 16:00 99.7 85 9 142/75 (97) 96 04/19/17 15:11 98 35 04/19/17 14:00 109 04/19/17 13:15 98 04/19/17 13:00 99.5 103 21 148/85 (106) 90 04/19/17 13:00 103 04/19/17 12:45 99.3 94 10 137/75 (95) 96 04/19/17 12:45 94 04/19/17 12:30 93 04/19/17 12:30 99.3 93 10 126/66 (86) 96 04/19/17 12:15 99.3 95 9 124/70 (88) 96 04/19/17 12:15 95 04/19/17 12:00 99.3 99 14 141/78 (99) 97 04/19/17 12:00 99 04/19/17 11:25 97 35 04/19/17 11:15 94 04/19/17 11:15 99.3 94 9 133/66 (88) 98 04/19/17 11:00 99.3 98 12 141/75 (97) 97 04/19/17 11:00 98 04/19/17 10:45 97 04/19/17 10:45 99.3 97 16 133/73 (93) 97 04/19/17 10:30 100 04/19/17 10:30 99.3 100 18 140/76 (97) 98 04/19/17 10:15 100 04/19/17 10:15 99.5 100 19 128/73 (91) 97 04/19/17 10:00 101 04/19/17 10:00 99.5 101 15 123/73 (90) 97 04/19/17 09:45 99.7 103 13 123/68 (86) 97 04/19/17 09:45 103 04/19/17 09:30 99.7 107 11 134/71 (92) 98 04/19/17 09:30 107 04/19/17 09:15 99.5 106 24 139/69 (92) 98 04/19/17 09:15 106 04/19/17 09:09 98 50 04/19/17 09:00 99.1 140 23 172/89 (116) 98 04/19/17 09:00 140 04/19/17 08:56 99.0 138 25 178/93 (121) 99 04/19/17 08:56 138 04/19/17 08:00 98.4 120 9 164/85 (111) 97 04/19/17 08:00 40 04/19/17 08:00 120 04/19/17 07:31 94 40 04/19/17 07:27 40 1/11/18 06:00 75 04/19/17 04:06 98 40 04/19/17 04:00 97.5 66 18 105/62 (76) 98 04/19/17 04:00 66 04/19/17 04:00 40 04/19/17 02:00 67 04/19/17 01:50 98 40 04/19/17 00:00 40 04/19/17 00:00 73 04/19/17 00:00 98.1 73 18 102/63 (76) 99 04/18/17 22:39 100 40 04/18/17 22:00 67 04/18/17 20:31 99 40 04/18/17 20:00 40 04/18/17 20:00 96.8 63 18 100/63 (75) 99 04/18/17 20:00 63 04/18/17 18:00 66 04/18/17 18:00 96.8 66 18 98/62 (74) 100 I/O 04/18/17 04/18/17 04/18/17 04/19/17 04/19/17 04/19/17 07:00 15:00 23:00 07:00 15:00 23:00 Intake Total 2067 ml 0 ml 100 ml 450 ml Output Total 100 ml 400 ml 375 ml Balance 1967 ml 0 ml -300 ml 75 ml Intake IV Total 2067 ml 0 ml 100 ml 450 ml Output Urine Total 100 ml 400 ml 325 ml Gastric Drainage Total 50 ml Physical Exam GENERAL: SKIN: Warm and dry. HEAD: Normocephalic. EYES: No scleral icterus. No injection or drainage. NECK: Supple, trachea midline. No JVD or lymphadenopathy. CARDIOVASCULAR: Regular rate and rhythm without murmurs, gallops, or rubs. RESPIRATORY: Breath sounds equal bilaterally. No accessory muscle use. GASTROINTESTINAL: Abdomen soft, non-tender, nondistended. MUSCULOSKELETAL: No cyanosis, or edema. BACK: Nontender without obvious deformity. No CVA tenderness. Laboratory Laboratory Tests Test 04/18/17 21:25 04/19/17 03:35 04/19/17 10:00 04/19/17 12:25 Troponin I 1.23 NG/ML 1.26 NG/ML 1.17 NG/ML White Blood Count 12.0 TH/MM3 Red Blood Count 3.95 MIL/MM3 Hemoglobin 13.3 GM/DL Hematocrit 39.7 % Mean Corpuscular Volume 100.6 FL Mean Corpuscular Hemoglobin 33.7 PG Mean Corpuscular Hemoglobin Concent 33.5 % Red Cell Distribution Width 13.7 % Platelet Count 168 TH/MM3 Mean Platelet Volume 9.0 FL Neutrophils (%) (Auto) 88.4 % Lymphocytes (%) (Auto) 4.1 % Monocytes (%) (Auto) 7.5 % Eosinophils (%) (Auto) 0.0 % Basophils (%) (Auto) 0.0 % Neutrophils # (Auto) 10.6 TH/MM3 Lymphocytes # (Auto) 0.5 TH/MM3 Monocytes # (Auto) 0.9 TH/MM3 Eosinophils # (Auto) 0.0 TH/MM3 Basophils # (Auto) 0.0 TH/MM3 CBC Comment DIFF FINAL Differential Comment Blood Urea Nitrogen 28 MG/DL Creatinine 1.05 MG/DL Random Glucose 145 MG/DL Total Protein 6.3 GM/DL Albumin 2.8 GM/DL Calcium Level 7.7 MG/DL Phosphorus Level 3.7 MG/DL Magnesium Level 2.3 MG/DL Alkaline Phosphatase 117 U/L Aspartate Amino Transf (AST/SGOT) 88 U/L Alanine Aminotransferase (ALT/SGPT) 66 U/L Total Bilirubin 0.5 MG/DL Sodium Level 138 MEQ/L Potassium Level 4.6 MEQ/L Chloride Level 105 MEQ/L Carbon Dioxide Level 26.9 MEQ/L Anion Gap 6 MEQ/L Estimat Glomerular Filtration Rate 74 ML/MIN Blood Gas Puncture Site RT RADIAL Blood Gas Patient Temperature 98.6 Blood Gas HCO3 28 mmol/L Blood Gas Base Excess 1.5 mmol/L Blood Gas Oxygen Saturation 95 % Arterial Blood pH 7.27 Arterial Blood Partial Pressure CO2 62 mmHg Arterial Blood Partial Pressure O2 95 mmHg Arterial Blood Oxygen Content 18.7 Vol % Arterial Blood Carboxyhemoglobin 0.8 % Arterial Blood Methemoglobin 1.3 % Blood Gas Hemoglobin 14.0 G/DL Oxygen Delivery Device BIPAP 16IPAP/5EPAP Blood Gas Inspired Oxygen 35 % Test 04/19/17 16:35 Blood Gas Puncture Site RT RADIAL Blood Gas Patient Temperature 98.6 Blood Gas HCO3 27 mmol/L Blood Gas Base Excess 1.6 mmol/L Blood Gas Oxygen Saturation 96 % Arterial Blood pH 7.32 Arterial Blood Partial Pressure CO2 54 mmHg Arterial Blood Partial Pressure O2 113 mmHg Arterial Blood Oxygen Content 18.8 Vol % Arterial Blood Carboxyhemoglobin 1.0 % Arterial Blood Methemoglobin 1.2 % Blood Gas Hemoglobin 13.9 G/DL Oxygen Delivery Device BIPAP 18IPAP/5EPAP Blood Gas Inspired Oxygen 35 % Imaging Last 24 hours Impressions Chest X-Ray 04/19/17 0000 Signed Impressions: Service Date/Time: April 04:39 - CONCLUSION: 1. No acute cardiopulmonary disease. Edison Garcia MD Assessment and Plan Problem List: (1) COPD (chronic obstructive pulmonary disease) ICD Codes: J44.9 - Chronic obstructive pulmonary disease, unspecified Status: Chronic Assessment and Plan 1.) NSTEMI - plan [facility] 04/20/17 Problem Qualifiers (1) COPD (chronic obstructive pulmonary disease): Qualified Codes: J44.9 - Chronic obstructive pulmonary disease, unspecified Gaston Vásquez MD Apr 19, 2017 17:02
[2017-04-19] MEDS: TAMSULOSIN HCL 0.4 MG CAP PO SCH (23:16)
[2017-04-20] VITALS (21 sets, daily range): BP systolic 137–159; BP diastolic 70–84; PULSE 83–98; RESP 6–23; TEMP 98.2–99.1; O2SAT 95–99
[2017-04-20] MEDS: PIPERACIL-TAZO 4.5 GM PREMIX 100 ML IV SCH ×4 (03:00→20:24)
[2017-04-20] MEDS: CHLORHEXIDINE GLUCONATE 2 % 1 PACK (2 CLOTHS) TOP SCH (03:00)
[2017-04-20] MEDS: RESP: ALBUTEROL 2.5 MG/IPRATROPIUM 0.5 MG NEB (SCH) INH ×6 (03:35→23:28)
[2017-04-20] MEDS: SODIUM CHLOR 0.9% 1000 ML INJ 1,000 ML IV SCH ×3 (04:52→23:50)
[2017-04-20] MEDS: METHOCARBAMOL 500 MG TAB PO SCH ×3 (04:57→20:25)
[2017-04-20] MEDS: METOPROLOL TARTRATE 5 MG/5 ML VIAL IV PUSH PRN (04:58)
--- NOTE | 2017-04-20 05:21 | RADRPT ---
EXAM DATE/TIME: 04/20/2017 04:15 [facility] COMPARISON: CHEST SINGLE AP, April 19, 2017, 4:39. INDICATIONS : Evaluate for pneumonia MEDICAL HISTORY : None. SURGICAL HISTORY : None. ENCOUNTER: Subsequent ACUITY: 4 - 6 days PAIN SCORE: 7/10 LOCATION: Bilateral chest FINDINGS: The endotracheal tube and NG tube have been removed. There is some atelectasis in both lung bases. Ot herwise, the rest the lungs are clear and well-aerated. No definite pleural effusions or pulmonary ed carin. The heart size is stable. There is no pneumothorax. CONCLUSION: Bibasilar atelectasis. Rob Villarreal MD on April 20, 2017 at 5:18 Board Certified Radiologist. This report was verified electronically.
[2017-04-20 06:42] LABS: BICARBONATE 29.7 MEQ/L (21.0-32.0); CALCIUM 7.9 MG/DL (8.5-10.1); CREATININE 0.8 MG/DL (0.60-1.30); MAGNESIUM 2.8 MG/DL (1.5-2.5); PHOSPHORUS 2.3 MG/DL (2.5-4.9)
[2017-04-20] MEDS: INSULIN NovoLIN REGULAR SUPPLEMENTAL SCALE SQ SCH ×4 (08:00→20:25)
[2017-04-20] MEDS: FAMOTIDINE 20 MG/2 ML VIAL IV PUSH SCH ×2 (08:04→20:25)
[2017-04-20] MEDS: SODIUM CHLORIDE 0.9% FLUSH 10 ML FLUSH IV FLUSH SCH ×2 (08:04→20:24)
--- NOTE | 2017-04-20 08:17 | HHI.CCPN ---
Subjective Remarks/Hospital Course 52 year old male who presents with a history of shortness of breath that began 2 days ago associated with a dry cough. The patient called ambulance services related to the shortness of breath and was noted to be saturating 92% on 2 L nasal cannula O2. The patient is normally on 2 L nasal cannula O2 continuously related to a history of COPD. The patient denies smoking currently. In the emergency department he has received the breathing treatment and IV steroids and was placed on BiPAP without any improvement. Continues to be severely hypoxemic patient was intubated by ED attending. Subjective: 04/18: Afebrile .The patient remains intubated and sedated. Maintaining oxygen saturation of 9697% on FiO2 40%. 04/19: The patient self extubated, O2 saturation in the 50's. Patient placed on nonrebreather mask 100% and then advance to BiPAP currently at 50%. She is alert and oriented following commands. O2 saturation now 97%. ABG pending. Will continue to wean. 1 extubation patient was noted to be, hypertensive extremely tachycardic heart rate in the 140s metoprolol initiated 2.5 mg every 6hrs . if tolerated will begin beta blockers (Metoprolol) PO, selective Beta 1. 04/20: Tmax 99.7. No acute events overnight. Patient remains on BiPAP 12.30% with O2 saturation 97%. The patient is tentatively scheduled for cardiac catheterization this a.m. Upon entering the room and performed physical examination and discussion with the patient, the patient requests to discuss with his mobile device engineer , prior to going for cardiac catheterization. Objective Vital Signs Date Time Temp Pulse Resp B/P (MAP) Pulse Ox O2 Delivery O2 Flow Rate FiO2 04/20/17 06:00 87 04/20/17 04:00 98.9 11 153/71 (98) 97 04/20/17 01:15 40 04/19/17 20:35 Nasal Cannula 5.00 Intake and Output 04/20/17 04/20/17 04/21/17 08:00 16:00 00:00 Intake Total 1590 ml Balance 1590 ml Result Diagram: 04/19/17 0335 04/20/17 0550 Other Results Microbiology Date/Time Source Procedure Growth Status 04/18/17 00:30 Sputum Endotracheal Gram Stain - Final Complete 04/18/17 00:30 Sputum Endotracheal Sputum Culture - Final HEAVY GROWTH NORMAL RESPIRATORY MILLY Complete 04/17/17 22:40 Nasal Aspirate Influenza Types A,B Antigen (JINA) - Final NEGATIVE FOR FLU A AND B ANTIGEN.... Complete 04/17/17 23:18 Urine Catheterized Urine Legionella Antigen - Final PRESUMPTIVE NEGATIVE FOR LEGIONELLA P... Complete 04/17/17 23:18 Urine Catheterized Urine Streptococcus pneumoniae Antigen (M - Final PRESUMPTIVE NEGATIVE FOR STREPTOCOCCU... Complete Laboratory Tests Test 04/19/17 12:25 04/19/17 16:35 Blood Gas Puncture Site RT RADIAL RT RADIAL Blood Gas Patient Temperature 98.6 98.6 Blood Gas HCO3 28 mmol/L (22-26) 27 mmol/L (22-26) Blood Gas Base Excess 1.5 mmol/L (-2-2) 1.6 mmol/L (-2-2) Blood Gas Oxygen Saturation 95 % (90-100) 96 % (90-100) Arterial Blood pH 7.27 (7.380-7.420) 7.32 (7.380-7.420) Arterial Blood Partial Pressure CO2 62 mmHg (38-42) 54 mmHg (38-42) Arterial Blood Partial Pressure O2 95 mmHg (61-120) 113 mmHg (61-120) Arterial Blood Oxygen Content 18.7 Vol % (12.0-20.0) 18.8 Vol % (12.0-20.0) Arterial Blood Carboxyhemoglobin 0.8 % (0-4) 1.0 % (0-4) Arterial Blood Methemoglobin 1.3 % (0-2) 1.2 % (0-2) Blood Gas Hemoglobin 14.0 G/DL (12.0-16.0) 13.9 G/DL (12.0-16.0) Oxygen Delivery Device BIPAP 16IPAP/5EPAP BIPAP 18IPAP/5EPAP Blood Gas Inspired Oxygen 35 % 35 % Imaging Last Impressions Chest X-Ray 04/20/17 0600 Signed Impressions: Service Date/Time: Thursday, April 20, 2017 04:15 - CONCLUSION: Bibasilar atelectasis. Rob Villarrela MD Last 24 hours Impressions Chest X-Ray 04/17/17 2214 Signed Impressions: Service Date/Time: Monday, April 17, 2017 22:38 - CONCLUSION: Appropriate position of the endotracheal tube. Trace atelectasis and effusions of both bases. Michael Rosales MD Objective Remarks GENERAL: Well-nourished, well-developed male patient on BIPAP in no apparent distress SKIN: Warm and dry. HEAD: Normocephalic. EYES: No scleral icterus. No injection or drainage. NECK: Supple, trachea midline. No JVD or lymphadenopathy. CARDIOVASCULAR: Regular rate and rhythm without murmurs, gallops, or rubs. Telemetry sinus rhythm RESPIRATORY: Breath sounds equal bilaterally. No accessory muscle use. Early on BiPAP 18/5.30 GASTROINTESTINAL: Abdomen soft, protuberant, non-tender, nondistended. MUSCULOSKELETAL: No cyanosis, or edema. NEURO EXAM: GCS 15. RASS 0. Moving extremities 4, following commands A/P Assessment and Plan Respiratory failure COPD exacerbation - Continue Broad-spectrum antibiotics - Continue IV steroids - DuoNeb scheduled and when necessary - Self extubation 04/19. Currently on BiPAP 14/5.40, continue to wean - Continue home meds -Spiriva, theophylline, Symbicort - Stat Pulmonary consult Dr. Matos GI - Patient may have ice chips and advance to clear liquid diet. Currently NPO for cardiac catheterization. Hypertension NSTEMI - Resume Lasix when off IV fluids - Dr. Vásquez following - Left heart catherization scheduled 04/20 - Metoprolol 2.5 mg IV every 6 hours PRN Hyperglycemia of critical illness - Insulin sliding scale BPH - Tamsulosin DVT GI prophylaxis - Teds SCDs - Lovenox - IV Pepcid Critical Care: Level [address] Matos, patient and [employer] at bedside ([place]) Physician Marisel Galarza MD Apr 20, 2017 08:17
[2017-04-20] MEDS: THEOPHYLLINE 200 MG EXTENDED RELEASE CAP PO SCH (08:30)
[2017-04-20] MEDS: ASPIRIN EC 81 MG TABEC PO SCH (08:30)
[2017-04-20] MEDS: DOCUSATE SODIUM 50 MG/SENNA 8.6 MG TAB PO SCH ×2 (08:30→20:25)
[2017-04-20] MEDS: guaiFENesin E.R. 600 MG TAB PO SCH ×2 (08:30→20:25)
--- NOTE | 2017-04-20 09:05 | PD.CARD.PN ---
Subjective Subjective Remarks denies chest pain, on bipap in nad Objective Medications Current Medications Medications (Trade) Dose Ordered Sig/[place] Route Start Time Stop Time Status Last Admin (Symbicort 80-4.5 Mcg Inh) 1 puff Q12HR INH 04/18/17 09:00 (Lovenox Inj) 40 mg Q24H SQ 04/18/17 00:15 Future Hold 04/19/17 01:27 (Robaxin) 500 mg Q8HR PO 04/18/17 06:00 04/20/17 04:57 (Flomax) 0.4 mg HS PO 04/18/17 21:00 04/19/17 23:16 (Dakota-24) 400 mg DAILY PO 04/18/17 09:00 04/20/17 08:30 (Mucinex Er) 600 mg BID PO 04/18/17 09:00 04/20/17 08:30 Sodium Chloride 1,000 ml @ 84 mls/hr [id number] IV 04/18/17 00:20 04/20/17 04:52 (NS Flush) 2 ml UNSCH PRN IV FLUSH 04/18/17 00:30 (NS Flush) 2 ml BID IV FLUSH 04/18/17 09:00 04/20/17 08:04 (Tylenol) 650 mg Q6H PRN PO 04/18/17 00:30 (Pepcid Inj) 20 mg Q12HR IV PUSH 04/18/17 09:00 04/20/17 08:04 (Versed Inj) 2 mg Q1H PRN IV PUSH 04/18/17 00:30 (Zofran Inj) 4 mg Q6H PRN IV PUSH 04/18/17 00:30 (Duoneb Neb) 1 ampule Q4HR NEB INH 04/18/17 04:00 04/20/17 08:20 (Duoneb Neb) 1 ampule Q2HR NEB PRN INH 04/18/17 00:30 04/18/17 01:05 Miscellaneous Information 1 Q361D XX 04/18/17 00:30 04/18/17 00:30 (Chlorhexidine 2% Cloth) 3 pack Taper DAILY@04 TOP 04/18/17 04:00 04/14/18 03:59 04/20/17 03:00 (Chlorhexidine 2% Cloth) 3 pack UNSCH PRN TOP 04/18/17 00:30 (Edna-Colace) 1 tab BID PO 04/18/17 09:00 04/20/17 08:30 (Milk Of Magnesia Liq) 30 ml Q12H PRN PO 04/18/17 00:30 (Senokot) 17.2 mg Q12H PRN PO 04/18/17 00:30 (Dulcolax Supp) 10 mg DAILY PRN RECTAL 04/18/17 00:30 (Lactulose Liq) 30 ml DAILY PRN PO 04/18/17 00:30 Piperacillin Sod/ Tazobactam Sod 100 ml @ 200 mls/hr Q6H IV 04/18/17 02:00 04/20/17 08:03 Azithromycin 500 mg/Sodium Chloride 250 ml @ 250 mls/hr Q24H IV 04/18/17 00:30 04/19/17 23:17 (SoluMEDROL INJ) 40 mg Q12H IV PUSH 04/18/17 00:30 04/19/17 23:16 (D50w (Vial) Inj) 50 ml UNSCH PRN IV PUSH 04/18/17 00:45 (Glucagon Inj) 1 mg UNSCH PRN OTHER 04/18/17 00:45 (NovoLIN R SUPPLEMENTAL SCALE) 1 ACHS SLIDING SCALE SQ 04/18/17 08:00 (Ecotrin Ec) 81 mg DAILY PO 04/19/17 09:00 04/20/17 08:30 (Lopressor Inj) 2.5 mg Q6H PRN IV PUSH 04/19/17 09:15 04/20/17 04:58 Vital Signs / I&O Vital Signs Date Time Temp Pulse Resp B/P (MAP) Pulse Ox O2 Delivery O2 Flow Rate FiO2 04/20/17 08:21 95 Nasal Cannula 6.00 04/20/17 06:00 87 04/20/17 04:00 98 04/20/17 04:00 98.9 98 11 153/71 (98) 97 04/20/17 02:00 92 04/20/17 01:15 98 40 04/20/17 00:00 99.0 93 21 137/77 (97) 98 04/20/17 00:00 93 04/19/17 22:00 109 04/19/17 20:58 96 50 04/19/17 20:35 97 Nasal Cannula 5.00 04/19/17 20:00 99.2 99 27 171/88 (115) 97 04/19/17 20:00 99 04/19/17 18:15 85 04/19/17 18:00 83 04/19/17 17:00 84 04/19/17 16:45 89 04/19/17 16:30 88 04/19/17 16:15 85 04/19/17 16:00 85 04/19/17 16:00 99.7 85 9 142/75 (97) 96 04/19/17 15:11 98 35 04/19/17 14:00 109 04/19/17 13:15 98 04/19/17 13:00 99.5 103 21 148/85 (106) 90 04/19/17 13:00 103 04/19/17 12:45 99.3 94 10 137/75 (95) 96 04/19/17 12:45 94 04/19/17 12:30 93 04/19/17 12:30 99.3 93 10 126/66 (86) 96 04/19/17 12:15 99.3 95 9 124/70 (88) 96 04/19/17 12:15 95 04/19/17 12:00 99.3 99 14 141/78 (99) 97 04/19/17 12:00 99 04/19/17 11:25 97 35 04/19/17 11:15 94 04/19/17 11:15 99.3 94 9 133/66 (88) 98 04/19/17 11:00 99.3 98 12 141/75 (97) 97 04/19/17 11:00 98 04/19/17 10:45 97 04/19/17 10:45 99.3 97 16 133/73 (93) 97 04/19/17 10:30 100 04/19/17 10:30 99.3 100 18 140/76 (97) 98 04/19/17 10:15 100 04/19/17 10:15 99.5 100 19 128/73 (91) 97 04/19/17 10:00 101 04/19/17 10:00 99.5 101 15 123/73 (90) 97 04/19/17 09:45 99.7 103 13 123/68 (86) 97 04/19/17 09:45 103 04/19/17 09:30 99.7 107 11 134/71 (92) 98 04/19/17 09:30 107 04/19/17 09:15 99.5 106 24 139/69 (92) 98 04/19/17 09:15 106 04/19/17 09:09 98 50 I/O 04/19/17 04/19/17 04/19/17 04/20/17 04/20/17 04/20/17 07:00 15:00 23:00 07:00 15:00 23:00 Intake Total 450 ml 1690 ml Output Total 375 ml 850 ml Balance 75 ml -850 ml 1690 ml Intake Oral 240 ml IV Total 450 ml 1450 ml Output Urine Total 325 ml 850 ml Gastric Drainage Total 50 ml # Voids 2 Physical Exam GENERAL: SKIN: Warm and dry. HEAD: Normocephalic. EYES: No scleral icterus. No injection or drainage. NECK: Supple, trachea midline. No JVD or lymphadenopathy. CARDIOVASCULAR: Regular rate and rhythm without murmurs, gallops, or rubs. RESPIRATORY: Breath sounds equal bilaterally. No accessory muscle use. GASTROINTESTINAL: Abdomen soft, non-tender, nondistended. MUSCULOSKELETAL: No cyanosis, or edema. BACK: Nontender without obvious deformity. No CVA tenderness. Laboratory Laboratory Tests Test 04/19/17 10:00 04/19/17 12:25 04/19/17 16:35 04/20/17 05:50 Troponin I 1.17 NG/ML Blood Gas Puncture Site RT RADIAL RT RADIAL Blood Gas Patient Temperature 98.6 98.6 Blood Gas HCO3 28 mmol/L 27 mmol/L Blood Gas Base Excess 1.5 mmol/L 1.6 mmol/L Blood Gas Oxygen Saturation 95 % 96 % Arterial Blood pH 7.27 7.32 Arterial Blood Partial Pressure CO2 62 mmHg 54 mmHg Arterial Blood Partial Pressure O2 95 mmHg 113 mmHg Arterial Blood Oxygen Content 18.7 Vol % 18.8 Vol % Arterial Blood Carboxyhemoglobin 0.8 % 1.0 % Arterial Blood Methemoglobin 1.3 % 1.2 % Blood Gas Hemoglobin 14.0 G/DL 13.9 G/DL Oxygen Delivery Device BIPAP 16IPAP/5EPAP BIPAP 18IPAP/5EPAP Blood Gas Inspired Oxygen 35 % 35 % Blood Urea Nitrogen 22 MG/DL Creatinine 0.80 MG/DL Random Glucose 140 MG/DL Calcium Level 7.9 MG/DL Phosphorus Level 2.3 MG/DL Magnesium Level 2.8 MG/DL Sodium Level 144 MEQ/L Potassium Level 5.1 MEQ/L Chloride Level 108 MEQ/L Carbon Dioxide Level 29.7 MEQ/L Anion Gap 6 MEQ/L Estimat Glomerular Filtration Rate 101 ML/MIN Imaging Last 24 hours Impressions Chest X-Ray 04/20/17 0600 Signed Impressions: Service Date/Time: Thursday, April 20, 2017 04:15 - CONCLUSION: Bibasilar atelectasis. Rob Villarreal MD Assessment and Plan Problem List: (1) COPD (chronic obstructive pulmonary disease) ICD Codes: J44.9 - Chronic obstructive pulmonary disease, unspecified Status: Chronic Assessment and Plan 1.) NSTEMI - plan [facility] 04/20/17, patient request pulmonary consult first, will continue medical management, he denies chest pain, possible cath 04/23/17 if he consents Problem Qualifiers (1) COPD (chronic obstructive pulmonary disease): Qualified Codes: J44.9 - Chronic obstructive pulmonary disease, unspecified Gaston Vásquez MD Apr 20, 2017 09:05
[2017-04-20 09:19] LABS: HEMATOCRIT 40.8 % (39.0-51.0); HEMOGLOBIN 13.6 GM/DL (13.0-17.0); MEAN CELL VOLUME 100.3 FL (80.0-100.0); MEAN CORPUSCULAR HEMOGLOBIN 33.4 PG (27.0-34.0); MEAN CORPUSCULAR HGB CONC 33.4 % (32.0-36.0); MEAN PLATELET VOLUME 8.5 FL (7.0-11.0); PLATELET COUNT 140 TH/MM3 (150-450); RED BLOOD COUNT 4.07 MIL/MM3 (4.50-5.90); RED CELL DISTRIBUTION WIDTH 13.5 % (11.6-17.2); WHITE BLOOD COUNT 10.8 TH/MM3 (4.0-11.0)
[2017-04-20 10:02] LABS: HEMATOCRIT 41.4 % (39.0-51.0); HEMOGLOBIN 13.4 GM/DL (13.0-17.0); MEAN CELL VOLUME 102.2 FL (80.0-100.0); MEAN CORPUSCULAR HEMOGLOBIN 33.1 PG (27.0-34.0); MEAN CORPUSCULAR HGB CONC 32.4 % (32.0-36.0); MEAN PLATELET VOLUME 8.6 FL (7.0-11.0); PLATELET COUNT 141 TH/MM3 (150-450); RED BLOOD COUNT 4.05 MIL/MM3 (4.50-5.90); RED CELL DISTRIBUTION WIDTH 14.1 % (11.6-17.2); WHITE BLOOD COUNT 11.4 TH/MM3 (4.0-11.0)
[2017-04-20] MEDS: methylPREDNISolone SOD SUCC 40 MG/1 ML VIAL IV PUSH SCH ×4 (12:00→23:26)
[2017-04-20] MEDS: BUDESONIDE-FORMOTEROL 80/4.5 MCG INHALER INH SCH ×2 (12:09→20:24)
[2017-04-20] MEDS: TAMSULOSIN HCL 0.4 MG CAP PO SCH (20:25)
--- NOTE | 2017-04-20 20:31 | MB ---
cc: BRANDY NAVA M.D. DATE OF CONSULTATION 04/20/17 REASON FOR CONSULTATION Patient with known COPD with recent acute RI. HISTORY OF PRESENT ILLNESS Mr. Sevilla is a 52-year-old male admitted with increasing shortness of breath suggestion of underlying acute myocardial infarction. The patient has known history of COPD as well as history of obstructive sleep apnea, uses PAP therapy at home. The patient initially intubated, mechanically ventilated. Subsequently extubated and placed on BiPap therapy. He is followed by cardiology for underlying coronary artery disease. PAST MEDICAL HISTORY 1. COPD 2. Obstructive sleep apnea on PAP therapy. 3. BPH 4. Chronic lower extremity edema. SOCIAL HISTORY Heavy smoking history in the past, has not smoked for many years now. ALLERGIES None known to medication FAMILY HISTORY Noncontributory. MEDICATIONS At present include 1. Theophylline. 2. Symbicort. 3. Pepcid. 4. Robaxin 5. Piperacillin/tazobactam 6. Initial IV sedation for intubation now being discontinued 7. BiPap therapy. At home include. 1. Famotidine. 2. Hydrocodone. 3. Methocarbamol 4. Vitamin tablet. 5. Potassium. 6. Lasix, 7. Theophylline. 8. Tamsulosin 9. Nebulized Albuterol. 10. Ipratropium. 11. Symbicort twice daily 12. P.r.n. Ventolin via hand held inhaler. ALLERGIES None known to medication REVIEW OF SYSTEMS 12-point review of systems as per HPI and past history otherwise negative. PHYSICAL EXAMINATION GENERAL: The patient is alert. VITAL SIGNS: Temperature 99, pulse 84, respirations 18, blood pressure 150/74, oxygen saturation 99% on BiPap therapy. HEENT: Exam unremarkable. Eyes without icterus. NECK: Without adenopathy or thyroid enlargement. Central trachea. CHEST: No dullness to percussion. Few rhonchi at bases decreased with cough. CARDIAC: PMI distant. S1, S2 audible. Positive S4 ABDOMEN: Obese, lax, bowel sounds audible. EXTREMITIES: 1+ edema. LABORATORY DATA White count 10,000, hemoglobin 13, hematocrit 40. Sodium 144, potassium 5.1, BUN 22, creatinine 0.8. IMAGING STUDIES Chest x-ray today with bibasilar atelectatic change otherwise unremarkable. IMPRESSION 1. Post acute RI 2. Chronic obstructive pulmonary disease 3. Obstructive sleep apnea 4. Obesity. PLAN The patient will be maintained on oxygen therapy as needed as well as BiPap therapy for his underlying respiratory failure. He will need it during sleep as well with his history of obstructive sleep apnea. The patient's pCO2 upon presentation was 72, presently at 54 trending at the right direction. We will follow the patient's course along with you and depending on progress proceed further. He is followed by Dr. Gaston Vásquez from cardiologic standpoint. Brandy Nava MD WWW/ /7:14 PM /8:07 PM
[2017-04-20] MEDS: AZITHROMYCIN INJ 500 MG in SODIUM CHLOR 0.9% 250 ML INJ 250 ML IV SCH (23:26)
[2017-04-21] VITALS (19 sets, daily range): BP systolic 142–161; BP diastolic 75–88; PULSE 72–115; RESP 11–24; TEMP 98.1–99.1; O2SAT 96–99
[2017-04-21] MEDS: PIPERACIL-TAZO 4.5 GM PREMIX 100 ML IV SCH ×4 (03:05→20:04)
[2017-04-21] MEDS: CHLORHEXIDINE GLUCONATE 2 % 1 PACK (2 CLOTHS) TOP SCH (03:06)
[2017-04-21] MEDS: RESP: ALBUTEROL 2.5 MG/IPRATROPIUM 0.5 MG NEB (SCH) INH ×6 (04:01→23:52)
--- NOTE | 2017-04-21 04:36 | RADRPT ---
EXAM DATE/TIME: 04/21/2017 03:43 [facility] COMPARISON: CHEST SINGLE AP, April 20, 2017, 4:15. INDICATIONS : Shortness of breath, possible pulmonary disease. MEDICAL HISTORY : None. SURGICAL HISTORY : None. ENCOUNTER: Subsequent ACUITY: 1 week PAIN SCORE: Non-responsive. LOCATION: Bilateral chest FINDINGS: There continues to be some bibasilar atelectasis which is mildly improved compared to the prior exam. Otherwise, the rest of the lungs remain clear and well-aerated. No new infiltrates are demonstrated. No significant pleural effusions. The heart size is within normal limits. CONCLUSION: Mild improvement of the bibasilar atelectasis. Rob Villarreal MD on April 21, 2017 at 4:33 Board Certified Radiologist. This report was verified electronically.
[2017-04-21] MEDS: methylPREDNISolone SOD SUCC 40 MG/1 ML VIAL IV PUSH SCH ×4 (04:57→22:56)
[2017-04-21] MEDS: METHOCARBAMOL 500 MG TAB PO SCH ×3 (04:57→22:55)
[2017-04-21 05:29] LABS: HEMATOCRIT 38.5 % (39.0-51.0); MEAN CELL VOLUME 100.1 FL (80.0-100.0); MEAN CORPUSCULAR HEMOGLOBIN 33.7 PG (27.0-34.0); MEAN CORPUSCULAR HGB CONC 33.6 % (32.0-36.0); MEAN PLATELET VOLUME 8.3 FL (7.0-11.0); PLATELET COUNT 134 TH/MM3 (150-450); RED BLOOD COUNT 3.85 MIL/MM3 (4.50-5.90); RED CELL DISTRIBUTION WIDTH 13.6 % (11.6-17.2); WHITE BLOOD COUNT 8.2 TH/MM3 (4.0-11.0)
[2017-04-21 05:54] LABS: BICARBONATE 33.3 MEQ/L (21.0-32.0); CREATININE 0.75 MG/DL (0.60-1.30); MAGNESIUM 2.9 MG/DL (1.5-2.5)
[2017-04-21] MEDS: INSULIN NovoLIN REGULAR SUPPLEMENTAL SCALE SQ SCH ×4 (08:00→21:00)
[2017-04-21] MEDS: THEOPHYLLINE 200 MG EXTENDED RELEASE CAP PO SCH (08:12)
[2017-04-21] MEDS: DOCUSATE SODIUM 50 MG/SENNA 8.6 MG TAB PO SCH ×2 (08:12→20:04)
[2017-04-21] MEDS: ASPIRIN EC 81 MG TABEC PO SCH (08:12)
[2017-04-21] MEDS: guaiFENesin E.R. 600 MG TAB PO SCH ×2 (08:12→20:04)
[2017-04-21] MEDS: FAMOTIDINE 20 MG/2 ML VIAL IV PUSH SCH ×2 (08:13→20:04)
[2017-04-21] MEDS: SODIUM CHLORIDE 0.9% FLUSH 10 ML FLUSH IV FLUSH SCH ×2 (08:13→20:05)
[2017-04-21] MEDS: BUDESONIDE-FORMOTEROL 80/4.5 MCG INHALER INH SCH ×2 (08:13→20:04)
--- NOTE | 2017-04-21 10:25 | HHI.CCPN ---
Subjective Remarks/Hospital Course 52 year old male who presents with a history of shortness of breath that began 2 days ago associated with a dry cough. The patient called ambulance services related to the shortness of breath and was noted to be saturating 92% on 2 L nasal cannula O2. The patient is normally on 2 L nasal cannula O2 continuously related to a history of COPD. The patient denies smoking currently. In the emergency department he has received the breathing treatment and IV steroids and was placed on BiPAP without any improvement. Continues to be severely hypoxemic patient was intubated by ED attending. Subjective: 04/18: Afebrile .The patient remains intubated and sedated. Maintaining oxygen saturation of 9697% on FiO2 40%. 04/19: The patient self extubated, O2 saturation in the 50's. Patient placed on nonrebreather mask 100% and then advance to BiPAP currently at 50%. She is alert and oriented following commands. O2 saturation now 97%. ABG pending. Will continue to wean. 1 extubation patient was noted to be, hypertensive extremely tachycardic heart rate in the 140s metoprolol initiated 2.5 mg every 6hrs . if tolerated will begin beta blockers (Metoprolol) PO, selective Beta 1. 04/20: Tmax 99.7. No acute events overnight. Patient remains on BiPAP 03/13.30% with O2 saturation 97%. The patient is tentatively scheduled for cardiac catheterization this a.m. Upon entering the room and performed physical examination and discussion with the patient, the patient requests to discuss with his rn social work , prior to going for cardiac catheterization. 04/21: Afebrile . Patient denies chest pain .Cardiac catheterization canceled/ postponed yesterday, after consultation with Dr. Matos. Patient remains on BiPAP with FiO2 of 35%, O2 saturation 96%. Plan for initiation of high flow nasal cannula intermittently and resuming diet. Objective Vital Signs Date Time Temp Pulse Resp B/P (MAP) Pulse Ox O2 Delivery O2 Flow Rate FiO2 04/21/17 08:22 98 35 04/21/17 08:00 98.1 90 24 161/79 (106) 04/20/17 08:21 Nasal Cannula 6.00 Intake and Output 04/21/17 04/21/17 04/22/17 08:00 16:00 00:00 Intake Total 1810 ml Output Total 550 ml Balance 1260 ml Result Diagram: 04/21/17 0427 04/21/17 0427 Imaging Last Impressions Chest X-Ray 04/20/17 0600 Signed Impressions: Service Date/Time: Thursday, April 20, 2017 04:15 - CONCLUSION: Bibasilar atelectasis. Rob Villarreal MD Last 24 hours Impressions Chest X-Ray 04/17/17 2214 Signed Impressions: Service Date/Time: Monday, April 17, 2017 22:38 - CONCLUSION: Appropriate position of the endotracheal tube. Trace atelectasis and effusions of both bases. Michael Rosales MD Objective Remarks GENERAL: Well-nourished, well-developed male patient on high flow nasal cannula at 40% in no apparent distress SKIN: Warm and dry. HEAD: Normocephalic. EYES: No scleral icterus. No injection or drainage. NECK: Supple, trachea midline. No JVD or lymphadenopathy. CARDIOVASCULAR: Regular rate and rhythm without murmurs, gallops, or rubs. Telemetry sinus rhythm RESPIRATORY: Breath sounds equal bilaterally. No accessory muscle use. GASTROINTESTINAL: Abdomen soft, protuberant, non-tender, nondistended. MUSCULOSKELETAL: No cyanosis, or edema. NEURO EXAM: GCS 15. RASS 0. Moving extremities 4, following commands A/P Assessment and Plan Respiratory failure COPD exacerbation RIGOBERTO - Continue Broad-spectrum antibiotics - Continue IV steroids - DuoNeb scheduled and when necessary - Self extubation 04/19. Currently on BiPAP 14/5.40, continue to wean. Patient must remain on BiPAP at night secondary to RIGOBERTO, and use-high flow nasal cannula during the day - Continue home meds -Spiriva, theophylline, Symbicort - Stat Pulmonary consult Dr. Matos - Begin High flow nasal cannula 0.40 GI - Clear liquid diet, advance as tolerated heart healthy diet -Bowel regimen Hypertension NSTEMI - Resume Lasix when off IV fluids - Dr. Vásquez following - Left heart catherization scheduled 04/20, postponed - Metoprolol 2.5 mg IV every 6 hours PRN Hyperglycemia of critical illness - Insulin sliding scale BPH - Tamsulosin DVT GI prophylaxis - Teds SCDs - Lovenox - IV Pepcid Critical Care: Level 2 Discussed with patient and BELLY DANCER at bedside ([place]) Physician Marisel Galarza MD Apr 21, 2017 10:25
--- NOTE | 2017-04-21 11:36 | HHI.PR ---
Subjective Remarks Patient is on high flow oxygen 6L with 35% FIO2. Afebrile. Objective Vital Signs Vital Signs Date Time Temp Pulse Resp B/P (MAP) Pulse Ox O2 Delivery O2 Flow Rate FiO2 04/21/17 10:00 93 04/21/17 08:22 98 35 04/21/17 08:00 98.1 90 24 161/79 (106) 98 04/21/17 08:00 90 04/21/17 06:00 94 04/21/17 04:00 98.1 72 11 146/77 (100) 99 04/21/17 04:00 72 04/21/17 03:59 99 35 04/21/17 02:00 86 04/21/17 00:12 99 40 04/21/17 00:00 85 04/21/17 00:00 99.0 85 12 153/75 (101) 98 04/20/17 22:00 85 04/20/17 20:03 99 40 04/20/17 20:00 98.2 86 15 150/84 (106) 99 04/20/17 20:00 86 04/20/17 18:00 93 04/20/17 16:00 99.1 84 15 159/77 (104) 99 04/20/17 16:00 84 04/20/17 15:00 86 18 155/79 (104) 98 04/20/17 14:29 98 40 04/20/17 14:00 88 04/20/17 14:00 88 23 151/82 (105) 99 04/20/17 13:00 83 11 149/75 (99) 98 04/20/17 12:00 86 04/20/17 12:00 98.9 86 12 158/80 (106) 99 04/20/17 11:25 99 40 I/O 04/20/17 04/20/17 04/20/17 04/21/17 04/21/17 04/21/17 07:00 15:00 23:00 07:00 15:00 23:00 Intake Total 1690 ml 100 ml 1620 ml 2810 ml Output Total 1000 ml 550 ml Balance 1690 ml 100 ml 620 ml 2260 ml Intake Oral 240 ml 480 ml 960 ml IV Total 1450 ml 100 ml 1140 ml 1850 ml Output Urine Total 1000 ml 550 ml # Voids 2 # Bowel Movements 0 0 Result Diagram: 04/21/1742604/21/17426 Other Results Last Impressions Chest X-Ray 04/21/17 0600 Signed Impressions: Service Date/Time: Friday, April 21, 2017 03:43 - CONCLUSION: Mild improvement of the bibasilar atelectasis. Rob Villarreal MD Objective Remarks GENERAL: Patient is 52 yo on high flow oxygen in mild resp distress SKIN: Warm and dry. HEAD: Normocephalic. EYES: No scleral icterus. No injection or drainage. NECK: Supple, trachea midline. No JVD or lymphadenopathy. CARDIOVASCULAR: Regular rate and rhythm without murmurs, gallops, or rubs. RESPIRATORY: Breath sounds equal bilaterally. Few coarse BS GASTROINTESTINAL: Abdomen soft, non-tender, nondistended. MUSCULOSKELETAL: No cyanosis, or edema. BACK: Nontender without obvious deformity. No CVA tenderness. Neuro: Awake and alert A/P Assessment and Plan 1)Acute hypercapnic and hypoxic resp failure 2)COPD 3) Obstructive sleep apnea 4)NSTEMI 5)HTN PLAN Continue with oxygen keep sat >92% Bronchodilators ( Duoneb, Symbicort) On Theodur 400mg daily Continue with solumederol 40mg Q6 BIPAP PRN during day and nocturnally qhs Will proceed with CTA chest r/o PE and for further eval of pulm parenchyma Continue with abx ( Zosyn, Zithromax), sputum 1/0: normal resp marielle Continue with Lasix 40mg daily. D/c IVF GI/DVT prophylaxis- per primary team Continue treatment plan Elio Buchanan MD Apr 21, 2017 11:36
--- NOTE | 2017-04-21 12:07 | PD.CARD.PN ---
Subjective Subjective Remarks denies chest pain, in nad Objective Medications Current Medications Medications (Trade) Dose Ordered Sig/[place] Route Start Time Stop Time Status Last Admin (Symbicort 80-4.5 Mcg Inh) 1 puff Q12HR INH 04/18/17 09:00 04/21/17 08:13 (Lovenox Inj) 40 mg Q24H SQ 04/18/17 00:15 Future Hold 04/19/17 01:27 (Robaxin) 500 mg Q8HR PO 04/18/17 06:00 04/21/17 04:57 (Flomax) 0.4 mg HS PO 04/18/17 21:00 04/20/17 20:25 (Dakota-24) 400 mg DAILY PO 04/18/17 09:00 04/21/17 08:12 (Mucinex Er) 600 mg BID PO 04/18/17 09:00 04/21/17 08:12 (NS Flush) 2 ml UNSCH PRN IV FLUSH 04/18/17 00:30 (NS Flush) 2 ml BID IV FLUSH 04/18/17 09:00 04/21/17 08:13 (Tylenol) 650 mg Q6H PRN PO 04/18/17 00:30 (Pepcid Inj) 20 mg Q12HR IV PUSH 04/18/17 09:00 04/21/17 08:13 (Versed Inj) 2 mg Q1H PRN IV PUSH 04/18/17 00:30 (Zofran Inj) 4 mg Q6H PRN IV PUSH 04/18/17 00:30 (Duoneb Neb) 1 ampule Q4HR NEB INH 04/18/17 04:00 04/21/17 11:26 (Duoneb Neb) 1 ampule Q2HR NEB PRN INH 04/18/17 00:30 04/18/17 01:05 Miscellaneous Information 1 Q361D XX 04/18/17 00:30 04/18/17 00:30 (Chlorhexidine 2% Cloth) 3 pack Taper DAILY@04 TOP 04/18/17 04:00 04/14/18 03:59 04/21/17 03:06 (Chlorhexidine 2% Cloth) 3 pack UNSCH PRN TOP 04/18/17 00:30 (Edna-Colace) 1 tab BID PO 04/18/17 09:00 04/21/17 08:12 (Milk Of Magnesia Liq) 30 ml Q12H PRN PO 04/18/17 00:30 (Senokot) 17.2 mg Q12H PRN PO 04/18/17 00:30 (Dulcolax Supp) 10 mg DAILY PRN RECTAL 04/18/17 00:30 (Lactulose Liq) 30 ml DAILY PRN PO 04/18/17 00:30 Piperacillin Sod/ Tazobactam Sod 100 ml @ 200 mls/hr Q6H IV 04/18/17 02:00 04/21/17 08:14 Azithromycin 500 mg/Sodium Chloride 250 ml @ 250 mls/hr Q24H IV 04/18/17 00:30 04/20/17 23:26 (D50w (Vial) Inj) 50 ml UNSCH PRN IV PUSH 04/18/17 00:45 (Glucagon Inj) 1 mg UNSCH PRN OTHER 04/18/17 00:45 (NovoLIN R SUPPLEMENTAL SCALE) 1 ACHS SLIDING SCALE SQ 04/18/17 08:00 (Ecotrin Ec) 81 mg DAILY PO 04/19/17 09:00 04/21/17 08:12 (Lopressor Inj) 2.5 mg Q6H PRN IV PUSH 04/19/17 09:15 04/20/17 04:58 (SoluMEDROL INJ) 40 mg Q6HR IV PUSH 04/20/17 12:00 04/21/17 04:57 (Lasix) 40 mg DAILY PO 04/21/17 10:30 Vital Signs / I&O Vital Signs Date Time Temp Pulse Resp B/P (MAP) Pulse Ox O2 Delivery O2 Flow Rate FiO2 04/21/17 10:00 93 04/21/17 09:45 96 High Flow Nasal Cannula 40.00 04/21/17 08:22 98 35 04/21/17 08:00 98.1 90 24 161/79 (106) 98 04/21/17 08:00 90 04/21/17 06:00 94 04/21/17 04:00 98.1 72 11 146/77 (100) 99 04/21/17 04:00 72 04/21/17 03:59 99 35 04/21/17 02:00 86 04/21/17 00:12 99 40 04/21/17 00:00 85 04/21/17 00:00 99.0 85 12 153/75 (101) 98 04/20/17 22:00 85 04/20/17 20:03 99 40 04/20/17 20:00 98.2 86 15 150/84 (106) 99 04/20/17 20:00 86 04/20/17 18:00 93 04/20/17 16:00 99.1 84 15 159/77 (104) 99 04/20/17 16:00 84 04/20/17 15:00 86 18 155/79 (104) 98 04/20/17 14:29 98 40 04/20/17 14:00 88 04/20/17 14:00 88 23 151/82 (105) 99 04/20/17 13:00 83 11 149/75 (99) 98 I/O 04/20/17 04/20/17 04/20/17 04/21/17 04/21/17 04/21/17 07:00 15:00 23:00 07:00 15:00 23:00 Intake Total 1690 ml 100 ml 1620 ml 2810 ml Output Total 1000 ml 550 ml Balance 1690 ml 100 ml 620 ml 2260 ml Intake Oral 240 ml 480 ml 960 ml IV Total 1450 ml 100 ml 1140 ml 1850 ml Output Urine Total 1000 ml 550 ml # Voids 2 # Bowel Movements 0 0 Physical Exam GENERAL: SKIN: Warm and dry. HEAD: Normocephalic. EYES: No scleral icterus. No injection or drainage. NECK: Supple, trachea midline. No JVD or lymphadenopathy. CARDIOVASCULAR: Regular rate and rhythm without murmurs, gallops, or rubs. RESPIRATORY: Breath sounds equal bilaterally. No accessory muscle use. GASTROINTESTINAL: Abdomen soft, non-tender, nondistended. MUSCULOSKELETAL: No cyanosis, or edema. BACK: Nontender without obvious deformity. No CVA tenderness. Laboratory Laboratory Tests Test 04/21/17 04:27 White Blood Count 8.2 TH/MM3 Red Blood Count 3.85 MIL/MM3 Hemoglobin 13.0 GM/DL Hematocrit 38.5 % Mean Corpuscular Volume 100.1 FL Mean Corpuscular Hemoglobin 33.7 PG Mean Corpuscular Hemoglobin Concent 33.6 % Red Cell Distribution Width 13.6 % Platelet Count 134 TH/MM3 Mean Platelet Volume 8.3 FL Blood Urea Nitrogen 19 MG/DL Creatinine 0.75 MG/DL Random Glucose 143 MG/DL Calcium Level 8.0 MG/DL Phosphorus Level 2.0 MG/DL Magnesium Level 2.9 MG/DL Sodium Level 142 MEQ/L Potassium Level 4.3 MEQ/L Chloride Level 103 MEQ/L Carbon Dioxide Level 33.3 MEQ/L Anion Gap 6 MEQ/L Estimat Glomerular Filtration Rate 109 ML/MIN Imaging Last 24 hours Impressions Chest X-Ray 04/21/17 0600 Signed Impressions: Service Date/Time: Friday, April 21, 2017 03:43 - CONCLUSION: Mild improvement of the bibasilar atelectasis. Rob Villarreal MD Assessment and Plan Problem List: (1) COPD (chronic obstructive pulmonary disease) ICD Codes: J44.9 - Chronic obstructive pulmonary disease, unspecified Status: Chronic Assessment and Plan 1.) NSTEMI - plan [facility] 04/20/17, patient request pulmonary consult first, will continue medical management, he denies chest pain, possible cath 04/23/17 if he consents Problem Qualifiers (1) COPD (chronic obstructive pulmonary disease): Qualified Codes: J44.9 - Chronic obstructive pulmonary disease, unspecified Gaston Vásquez MD Apr 21, 2017 12:07
[2017-04-21] MEDS: FUROSEMIDE 40 MG TAB PO SCH (12:18)
[2017-04-21] MEDS ORDERED: IOHEXOL 350 MG/ML 10 ML VIAL (for RAD DIAG) IVCONTRAST ONE (13:51)
[2017-04-21] MEDS: RESP: ALBUTEROL 2.5 MG/IPRATROPIUM 0.5 MG NEB (PRN) INH (14:00)
--- NOTE | 2017-04-21 14:04 | RADRPT ---
EXAM DATE/TIME: 04/21/2017 13:29 [facility] COMPARISON: CT ABDOMEN & PELVIS W CONTRAST, February 14, 2017, 17:11. CT THORAX W CONTRAST, February 14, 2017, 1 7:11. CHEST SINGLE AP, April 21, 2017, 3:43. INDICATIONS : Shortness of breath.. Known emphysema. IV CONTRAST: 63 cc Omnipaque 350 (iohexol) IV RADIATION DOSE: 10.03 CTDIvol (mGy) MEDICAL HISTORY : Hypertension. Hernia, hiatal. SURGICAL HISTORY : None. ENCOUNTER: Initial ACUITY: 1 day PAIN SCALE: 0/10 LOCATION: Bilateral chest TECHNIQUE: Volumetric scanning of the chest was performed using a pulmonary embolism protocol MIP images were re constructed. Using automated exposure control and adjustment of the mA and/or kV according to patien t size, radiation dose was kept as low as reasonably achievable to obtain optimal diagnostic quality images. DICOM format image data is available electronically for review and comparison. Follow-up recommendations for detected pulmonary nodules are based at a minimum on nodule size and pa tient risk factors according to Fleischner Society Guidelines. FINDINGS: PULMONARY ARTERIES: No filling defects are seen in the pulmonary arteries through the segmental level. LUNGS: There is underlying emphysema and hyperinflation again noted. There is bullous change. There is a new focal air consolidation right lower lobe not present on the prior CT. And no large masses were disti nct nodules. No concerning pulmonary nodule is visualized. PLEURAE: There is no pleural thickening or pleural effusion. MEDIASTINUM: There is good visualization of the great vessels of the middle mediastinum. No evidence of mediastin al or hilar adenopathy/mass. MUSCULOSKELETAL: Within normal limits for patient age. MISCELLANEOUS: The visualized upper abdominal organs demonstrate no acute abnormality. The liver remains cirrhotic i n appearance. CONCLUSION: 1. No evidence of pulmonary embolism. 2. Air consolidation the right lung base concerning for pneumonia. 3. Underlying emphysema and apparent scarring. 4. Cirrhotic appearing liver. Hermes Polanco MD on April 21, 2017 at 13:56 Board Certified Radiologist. This report was verified electronically.
[2017-04-21] MEDS ORDERED: ETOMIDATE 40 MG/20 ML VIAL ONE (14:11)
[2017-04-21] MEDS ORDERED: ROCURONIUM INJ 50 MG/5 ML VIAL ONE (14:13)
[2017-04-21] MEDS ORDERED: FUROSEMIDE 40 MG/4 ML VIAL ONE (14:25)
[2017-04-21] MEDS: METOPROLOL TARTRATE 5 MG/5 ML VIAL IV PUSH PRN (17:53)
[2017-04-21] MEDS: TAMSULOSIN HCL 0.4 MG CAP PO SCH (20:04)
[2017-04-21] MEDS: AZITHROMYCIN INJ 500 MG in SODIUM CHLOR 0.9% 250 ML INJ 250 ML IV SCH (22:56)
[2017-04-22] VITALS (19 sets, daily range): BP systolic 136–158; BP diastolic 81–90; PULSE 80–109; RESP 19–29; TEMP 97.8–99; O2SAT 91–99
[2017-04-22] MEDS: PIPERACIL-TAZO 4.5 GM PREMIX 100 ML IV SCH ×4 (01:39→20:48)
[2017-04-22] MEDS: RESP: ALBUTEROL 2.5 MG/IPRATROPIUM 0.5 MG NEB (SCH) INH (03:35)
[2017-04-22] MEDS: CHLORHEXIDINE GLUCONATE 2 % 1 PACK (2 CLOTHS) TOP SCH (04:00)
--- NOTE | 2017-04-22 04:48 | RADRPT ---
EXAM DATE/TIME: 04/22/2017 04:09 [facility] COMPARISON: CHEST SINGLE AP, April 21, 2017, 3:43. INDICATIONS : Shortness of breath, possible pulmonary disease. MEDICAL HISTORY : None. SURGICAL HISTORY : None. ENCOUNTER: Subsequent ACUITY: 1 week PAIN SCORE: Non-responsive. LOCATION: Bilateral chest FINDINGS: Stable linear infiltrates in both lung bases suggestive of atelectasis. Otherwise, the lungs remain c lear and well-aerated. No new infiltrates are seen. Heart size is stable. No evidence of pneumothorax . Bony structures are stable. CONCLUSION: Bibasilar atelectasis. No significant change. Rob Villarreal MD on April 22, 2017 at 4:45 Board Certified Radiologist. This report was verified electronically.
[2017-04-22] MEDS: methylPREDNISolone SOD SUCC 40 MG/1 ML VIAL IV PUSH SCH ×4 (05:45→23:36)
[2017-04-22] MEDS: METHOCARBAMOL 500 MG TAB PO SCH ×3 (05:45→20:49)
[2017-04-22 06:02] LABS: HEMATOCRIT 39.7 % (39.0-51.0); HEMOGLOBIN 13.7 GM/DL (13.0-17.0); MEAN CELL VOLUME 98.4 FL (80.0-100.0); MEAN CORPUSCULAR HEMOGLOBIN 33.9 PG (27.0-34.0); MEAN CORPUSCULAR HGB CONC 34.5 % (32.0-36.0); MEAN PLATELET VOLUME 8.2 FL (7.0-11.0); PLATELET COUNT 147 TH/MM3 (150-450); RED BLOOD COUNT 4.03 MIL/MM3 (4.50-5.90); RED CELL DISTRIBUTION WIDTH 13.5 % (11.6-17.2); WHITE BLOOD COUNT 9.8 TH/MM3 (4.0-11.0)
[2017-04-22 06:19] LABS: CALCIUM 8.4 MG/DL (8.5-10.1); CREATININE 0.63 MG/DL (0.60-1.30)
[2017-04-22] MEDS: INSULIN NovoLIN REGULAR SUPPLEMENTAL SCALE SQ SCH ×4 (08:00→20:49)
--- NOTE | 2017-04-22 08:19 | HHI.PR ---
Subjective Remarks Patient is on BIPAP18/5 wih 35% FIO2. CT chest yesterday showed no PE, right basilar pneumonia. Patient is awake and alert. Afebrile. Objective Vital Signs Vital Signs Date Time Temp Pulse Resp B/P (MAP) Pulse Ox O2 Delivery O2 Flow Rate FiO2 04/22/17 06:00 84 04/22/17 04:00 98.8 87 21 150/85 (106) 98 04/22/17 04:00 87 04/22/17 03:36 96 35 04/22/17 02:00 91 04/22/17 00:00 98.0 85 19 136/83 (100) 99 04/22/17 00:00 85 04/21/17 23:52 98 35 04/21/17 22:00 83 04/21/17 20:37 97 35 04/21/17 20:00 98.9 93 14 146/84 (104) 97 04/21/17 20:00 Bi-Pap 35 04/21/17 20:00 93 04/21/17 18:00 89 04/21/17 16:00 98.6 100 15 142/88 (106) 97 04/21/17 16:00 100 04/21/17 15:29 97 35 04/21/17 14:00 115 04/21/17 12:00 99.1 94 17 159/82 (107) 96 04/21/17 12:00 94 04/21/17 10:00 93 04/21/17 09:45 96 High Flow Nasal Cannula 40.00 04/21/17 08:22 98 35 I/O 04/21/17 04/21/17 04/21/17 04/22/17 04/22/17 04/22/17 07:00 15:00 23:00 07:00 15:00 23:00 Intake Total 2810 ml 475 ml 830 ml Output Total 550 ml 3250 ml 1500 ml Balance 2260 ml -2775 ml -670 ml Intake Oral 960 ml 375 ml 480 ml IV Total 1850 ml 100 ml 350 ml Output Urine Total 550 ml 3250 ml 1500 ml # Bowel Movements 0 1 Result Diagram: 04/22/17 0530 04/22/17 0530 Other Results Last Impressions Chest X-Ray 04/22/17 0600 Signed Impressions: Service Date/Time: Saturday, April 22, 2017 04:09 - CONCLUSION: Bibasilar atelectasis. No significant change. Rob Villarreal MD CT Angiography 04/21/17 0000 Signed Impressions: Service Date/Time: Friday, April 21, 2017 13:29 - CONCLUSION: 1. No evidence of pulmonary embolism. 2. Air consolidation the right lung base concerning for pneumonia. 3. Underlying emphysema and apparent scarring. 4. Cirrhotic appearing liver. Hermes Polanco MD Objective Remarks GENERAL: Patient is 52 yo on BIPAP SKIN: Warm and dry. HEAD: Normocephalic. EYES: No scleral icterus. No injection or drainage. NECK: Supple, trachea midline. No JVD or lymphadenopathy. CARDIOVASCULAR: Regular rate and rhythm without murmurs, gallops, or rubs. RESPIRATORY: Breath sounds equal bilaterally. Few coarse BS GASTROINTESTINAL: Abdomen soft, non-tender, nondistended. MUSCULOSKELETAL: No cyanosis, or edema. BACK: Nontender without obvious deformity. No CVA tenderness. Neuro: Awake and alert A/P Assessment and Plan 1)Acute hypercapnic and hypoxic resp failure 2)COPD 3) Right basilar pneumonia 4) Obstructive sleep apnea 5)NSTEMI 6)HTN PLAN Continue with oxygen keep sat >92% Bronchodilators ( Duoneb, Symbicort), IS. On Theodur 400mg daily Continue with solumederol 40mg Q6 BIPAP PRN during day and nocturnally qhs CT chest yesterday showed no PE, right basilar pneumonia. CXR today- Bibasilar atelectasis Continue with abx ( Zosyn, Zithromax), sputum 1/0: normal resp marielle Continue with Lasix 40mg daily. GI/DVT prophylaxis- per primary team Continue treatment plan Elio Buchanan MD Apr 22, 2017 08:19
[2017-04-22] MEDS: DOCUSATE SODIUM 50 MG/SENNA 8.6 MG TAB PO SCH ×2 (08:41→20:49)
[2017-04-22] MEDS: ASPIRIN EC 81 MG TABEC PO SCH (08:41)
[2017-04-22] MEDS: guaiFENesin E.R. 600 MG TAB PO SCH ×2 (08:41→20:49)
[2017-04-22] MEDS: SODIUM CHLORIDE 0.9% FLUSH 10 ML FLUSH IV FLUSH SCH ×2 (08:42→20:48)
[2017-04-22] MEDS: FAMOTIDINE 20 MG/2 ML VIAL IV PUSH SCH ×2 (08:42→20:48)
[2017-04-22] MEDS: FUROSEMIDE 40 MG TAB PO SCH (08:42)
[2017-04-22] MEDS: BUDESONIDE-FORMOTEROL 80/4.5 MCG INHALER INH SCH ×2 (08:43→20:48)
--- NOTE | 2017-04-22 11:04 | PD.CARD.PN ---
Subjective Subjective Remarks denies chest pain, in nad, on bipap Objective Medications Current Medications Medications (Trade) Dose Ordered Sig/[place] Route Start Time Stop Time Status Last Admin (Symbicort 80-4.5 Mcg Inh) 1 puff Q12HR INH 04/18/17 09:00 04/22/17 08:43 (Lovenox Inj) 40 mg Q24H SQ 04/18/17 00:15 Future Hold 04/19/17 01:27 (Robaxin) 500 mg Q8HR PO 04/18/17 06:00 04/22/17 05:45 (Flomax) 0.4 mg HS PO 04/18/17 21:00 04/21/17 20:04 (Dakota-24) 400 mg DAILY PO 04/18/17 09:00 04/21/17 08:12 (Mucinex Er) 600 mg BID PO 04/18/17 09:00 04/22/17 08:41 (NS Flush) 2 ml UNSCH PRN IV FLUSH 04/18/17 00:30 (NS Flush) 2 ml BID IV FLUSH 04/18/17 09:00 04/22/17 08:42 (Tylenol) 650 mg Q6H PRN PO 04/18/17 00:30 (Pepcid Inj) 20 mg Q12HR IV PUSH 04/18/17 09:00 04/22/17 08:42 (Versed Inj) 2 mg Q1H PRN IV PUSH 04/18/17 00:30 (Zofran Inj) 4 mg Q6H PRN IV PUSH 04/18/17 00:30 (Duoneb Neb) 1 ampule Q2HR NEB PRN INH 04/18/17 00:30 04/21/17 14:00 Miscellaneous Information 1 Q361D XX 04/18/17 00:30 04/18/17 00:30 (Chlorhexidine 2% Cloth) 3 pack Taper DAILY@04 TOP 04/18/17 04:00 04/14/18 03:59 04/22/17 04:00 (Chlorhexidine 2% Cloth) 3 pack UNSCH PRN TOP 04/18/17 00:30 (Edna-Colace) 1 tab BID PO 04/18/17 09:00 04/22/17 08:41 (Milk Of Magnesia Liq) 30 ml Q12H PRN PO 04/18/17 00:30 (Senokot) 17.2 mg Q12H PRN PO 04/18/17 00:30 (Dulcolax Supp) 10 mg DAILY PRN RECTAL 04/18/17 00:30 (Lactulose Liq) 30 ml DAILY PRN PO 04/18/17 00:30 Piperacillin Sod/ Tazobactam Sod 100 ml @ 200 mls/hr Q6H IV 04/18/17 02:00 04/22/17 08:42 Azithromycin 500 mg/Sodium Chloride 250 ml @ 250 mls/hr Q24H IV 04/18/17 00:30 04/21/17 22:56 (D50w (Vial) Inj) 50 ml UNSCH PRN IV PUSH 04/18/17 00:45 (Glucagon Inj) 1 mg UNSCH PRN OTHER 04/18/17 00:45 (NovoLIN R SUPPLEMENTAL SCALE) 1 ACHS SLIDING SCALE SQ 04/18/17 08:00 (Ecotrin Ec) 81 mg DAILY PO 04/19/17 09:00 04/22/17 08:41 (Lopressor Inj) 2.5 mg Q6H PRN IV PUSH 04/19/17 09:15 04/21/17 17:53 (SoluMEDROL INJ) 40 mg Q6HR IV PUSH 04/20/17 12:00 04/22/17 05:45 (Lasix) 40 mg DAILY PO 04/21/17 10:30 04/22/17 08:42 (Duoneb Neb) 1 ampule Q4HR NEB NEB 04/22/17 12:00 Vital Signs / I&O Vital Signs Date Time Temp Pulse Resp B/P (MAP) Pulse Ox O2 Delivery O2 Flow Rate FiO2 04/22/17 08:15 99 35 04/22/17 08:00 97.8 80 27 157/90 (112) 99 04/22/17 07:00 Bi-Pap 35 04/22/17 06:00 84 04/22/17 04:00 98.8 87 21 150/85 (106) 98 04/22/17 04:00 87 04/22/17 03:36 96 35 04/22/17 02:00 91 04/22/17 00:00 98.0 85 19 136/83 (100) 99 04/22/17 00:00 85 04/21/17 23:52 98 35 04/21/17 22:00 83 04/21/17 20:37 97 35 04/21/17 20:00 98.9 93 14 146/84 (104) 97 04/21/17 20:00 Bi-Pap 35 04/21/17 20:00 93 04/21/17 18:00 89 04/21/17 16:00 98.6 100 15 142/88 (106) 97 04/21/17 16:00 100 04/21/17 15:29 97 35 04/21/17 14:00 115 04/21/17 12:00 99.1 94 17 159/82 (107) 96 04/21/17 12:00 94 I/O 04/21/17 04/21/17 04/21/17 04/22/17 04/22/17 04/22/17 07:00 15:00 23:00 07:00 15:00 23:00 Intake Total 2810 ml 475 ml 830 ml Output Total 550 ml 3250 ml 1500 ml Balance 2260 ml -2775 ml -670 ml Intake Oral 960 ml 375 ml 480 ml IV Total 1850 ml 100 ml 350 ml Output Urine Total 550 ml 3250 ml 1500 ml # Bowel Movements 0 1 Physical Exam GENERAL: SKIN: Warm and dry. HEAD: Normocephalic. EYES: No scleral icterus. No injection or drainage. NECK: Supple, trachea midline. No JVD or lymphadenopathy. CARDIOVASCULAR: Regular rate and rhythm without murmurs, gallops, or rubs. RESPIRATORY: Breath sounds equal bilaterally. No accessory muscle use. GASTROINTESTINAL: Abdomen soft, non-tender, nondistended. MUSCULOSKELETAL: No cyanosis, or edema. BACK: Nontender without obvious deformity. No CVA tenderness. Laboratory Laboratory Tests Test 04/21/17 12:05 04/22/17 05:23 04/22/17 05:30 Blood Gas Puncture Site LT RADIAL RT RADIAL Blood Gas Patient Temperature 98.6 98.6 Blood Gas HCO3 34 mmol/L 40 mmol/L Blood Gas Base Excess 8.1 mmol/L 14.6 mmol/L Blood Gas Oxygen Saturation 93 % 96 % Arterial Blood pH 7.36 7.42 Arterial Blood Partial Pressure CO2 61 mmHg 62 mmHg Arterial Blood Partial Pressure O2 81 mmHg 106 mmHg Arterial Blood Oxygen Content 17.8 Vol % 18.7 Vol % Arterial Blood Carboxyhemoglobin 0.8 % 1.1 % Arterial Blood Methemoglobin 1.3 % 1.1 % Blood Gas Hemoglobin 13.6 G/DL 13.8 G/DL Oxygen Delivery Device HFNC BiPAP Blood Gas Liter Flow 40 L/M Blood Gas Inspired Oxygen 40 % 35 % Blood Gas Ventilator Setting IPAP 18/EPAP 5 White Blood Count 9.8 TH/MM3 Red Blood Count 4.03 MIL/MM3 Hemoglobin 13.7 GM/DL Hematocrit 39.7 % Mean Corpuscular Volume 98.4 FL Mean Corpuscular Hemoglobin 33.9 PG Mean Corpuscular Hemoglobin Concent 34.5 % Red Cell Distribution Width 13.5 % Platelet Count 147 TH/MM3 Mean Platelet Volume 8.2 FL Blood Urea Nitrogen 20 MG/DL Creatinine 0.63 MG/DL Random Glucose 137 MG/DL Calcium Level 8.4 MG/DL Sodium Level 142 MEQ/L Potassium Level 4.1 MEQ/L Chloride Level 101 MEQ/L Carbon Dioxide Level 38.0 MEQ/L Anion Gap 3 MEQ/L Estimat Glomerular Filtration Rate 133 ML/MIN Imaging Last 24 hours Impressions Chest X-Ray 04/22/17 0600 Signed Impressions: Service Date/Time: Saturday, April 22, 2017 04:09 - CONCLUSION: Bibasilar atelectasis. No significant change. Rob Villarreal MD Assessment and Plan Problem List: (1) COPD (chronic obstructive pulmonary disease) ICD Codes: J44.9 - Chronic obstructive pulmonary disease, unspecified Status: Chronic Assessment and Plan 1.) NSTEMI - patient undecided @ [facility], will continue medical management, he denies chest pain, possible cath 04/24/17 if he consents Problem Qualifiers (1) COPD (chronic obstructive pulmonary disease): Qualified Codes: J44.9 - Chronic obstructive pulmonary disease, unspecified Gaston Vásquez MD Apr 22, 2017 11:04
[2017-04-22] MEDS: RESP: ALBUTEROL 2.5 MG/IPRATROPIUM 0.5 MG NEB (SCH) NEB ×4 (11:41→23:51)
[2017-04-22] MEDS: THEOPHYLLINE 200 MG EXTENDED RELEASE CAP PO SCH (13:04)
--- NOTE | 2017-04-22 14:53 | HHI.CCPN ---
Subjective Remarks/Hospital Course 52 year old male who presents with a history of shortness of breath that began 2 days ago associated with a dry cough. The patient called ambulance services related to the shortness of breath and was noted to be saturating 92% on 2 L nasal cannula O2. The patient is normally on 2 L nasal cannula O2 continuously related to a history of COPD. The patient denies smoking currently. In the emergency department he has received the breathing treatment and IV steroids and was placed on BiPAP without any improvement. Continues to be severely hypoxemic patient was intubated by ED attending. Subjective: 04/18: Afebrile .The patient remains intubated and sedated. Maintaining oxygen saturation of 9697% on FiO2 40%. 04/19: The patient self extubated, O2 saturation in the 50's. Patient placed on nonrebreather mask 100% and then advance to BiPAP currently at 50%. She is alert and oriented following commands. O2 saturation now 97%. ABG pending. Will continue to wean. 1 extubation patient was noted to be, hypertensive extremely tachycardic heart rate in the 140s metoprolol initiated 2.5 mg every 6hrs . if tolerated will begin beta blockers (Metoprolol) PO, selective Beta 1. 04/20: Tmax 99.7. No acute events overnight. Patient remains on BiPAP 03/13.30% with O2 saturation 97%. The patient is tentatively scheduled for cardiac catheterization this a.m. Upon entering the room and performed physical examination and discussion with the patient, the patient requests to discuss with his fur finisher tailor , prior to going for cardiac catheterization. 04/21: Afebrile . Patient denies chest pain .Cardiac catheterization canceled/ postponed yesterday, after consultation with Dr. Matos. Patient remains on BiPAP with FiO2 of 35%, O2 saturation 96%. Plan for initiation of high flow nasal cannula intermittently and resuming diet. 04/22: subjectively feels better and less dyspneic. remains on bipap. ct pulmonary angiogram without evidence of pe. per cardiology, will need [facility] before discharge. afebrile. Objective Vital Signs Date Time Temp Pulse Resp B/P (MAP) Pulse Ox O2 Delivery O2 Flow Rate FiO2 04/22/17 11:37 98 35 04/22/17 08:00 97.8 80 27 157/90 (112) 04/22/17 07:00 Bi-Pap 04/21/17 09:45 40.00 Intake and Output 04/22/17 04/22/17 04/23/17 08:00 16:00 00:00 Intake Total 830 ml Output Total 1500 ml Balance -670 ml Result Diagram: 04/22/17 0530 04/22/17 0530 Other Results Laboratory Tests Test 04/22/17 05:23 Blood Gas Puncture Site RT RADIAL Blood Gas Patient Temperature 98.6 Blood Gas HCO3 40 mmol/L (22-26) Blood Gas Base Excess 14.6 mmol/L (-2-2) Blood Gas Oxygen Saturation 96 % (90-100) Arterial Blood pH 7.42 (7.380-7.420) Arterial Blood Partial Pressure CO2 62 mmHg (38-42) Arterial Blood Partial Pressure O2 106 mmHg (61-120) Arterial Blood Oxygen Content 18.7 Vol % (12.0-20.0) Arterial Blood Carboxyhemoglobin 1.1 % (0-4) Arterial Blood Methemoglobin 1.1 % (0-2) Blood Gas Hemoglobin 13.8 G/DL (12.0-16.0) Oxygen Delivery Device BiPAP Blood Gas Ventilator Setting IPAP 18/EPAP 5 Blood Gas Inspired Oxygen 35 % Imaging Last Impressions Chest X-Ray 04/20/17 0600 Signed Impressions: Service Date/Time: Thursday, April 20, 2017 04:15 - CONCLUSION: Bibasilar atelectasis. Rob Villarreal MD Last 24 hours Impressions Chest X-Ray 04/17/17 2214 Signed Impressions: Service Date/Time: Monday, April 17, 2017 22:38 - CONCLUSION: Appropriate position of the endotracheal tube. Trace atelectasis and effusions of both bases. Michael Rosales MD Objective Remarks GENERAL: obese male patient on bipap SKIN: Warm and dry. HEAD: Normocephalic. EYES: No scleral icterus. No injection or drainage. NECK: Supple, trachea midline. large schmitz prevents accurate assessment of jvd. CARDIOVASCULAR: Regular rate and rhythm. Telemetry sinus rhythm RESPIRATORY: bipap in place. 35% fio2. unlabored. equal chest rise. GASTROINTESTINAL: Abdomen soft, protuberant, non-tender, nondistended. MUSCULOSKELETAL: No cyanosis, or edema. NEURO EXAM: GCS 15. RASS 0. Moving extremities 4, following commands A/P Assessment and Plan Assessment: 52yM with acute hypoxic and hypercarbic respiratory failure requiring NIPPV, off pathway and remains hypercarbic and intermittently in distress. Also with NSTEMI, likely type 2 and needs left heart cath evaluation prior to discharge. continue abx, supportive care. may alternate between high flow nc and bipap to maintain spo2 > 88%. defer to cardiology for timing of LHC. remain in ICU- high risk for decompensation. Acute hypoxic and hypercarbic Respiratory failure COPD exacerbation RIGOBERTO - Continue Broad-spectrum antibiotics - Continue IV steroids - DuoNeb scheduled and when necessary - Self extubation 04/19. Currently on BiPAP 20/08.40, continue to wean. intermittent BiPAP and high flow nc. - Continue home meds -Spiriva, theophylline, Symbicort - Pulmonary consult Dr. Matos GI - heart healthy diet as tolerated. -Bowel regimen Hypertension NSTEMI, type 2 secondary to demand ischemia - Resume Lasix when off IV fluids - Dr. Vásquez following - Left heart catherization scheduled 04/20, postponed - Metoprolol 2.5 mg IV every 6 hours PRN Hyperglycemia of critical illness - Insulin sliding scale BPH - Tamsulosin DVT GI prophylaxis - Teds SCDs - IV Pepcid SQH dispo: remain in ICU. highly complex. Grady Garcia MD Apr 22, 2017 14:53
[2017-04-22] MEDS: HEPARIN SODIUM - SQ 10,000 UNITS/ML VIAL SQ SCH (20:50)
[2017-04-22] MEDS: TAMSULOSIN HCL 0.4 MG CAP PO SCH (20:52)
[2017-04-22] MEDS: AZITHROMYCIN INJ 500 MG in SODIUM CHLOR 0.9% 250 ML INJ 250 ML IV SCH (23:36)
[2017-04-23] VITALS (15 sets, daily range): BP systolic 135–176; BP diastolic 63–95; PULSE 84–113; RESP 22–30; TEMP 97.9–98.8; O2SAT 90–96
[2017-04-23] MEDS: PIPERACIL-TAZO 4.5 GM PREMIX 100 ML IV SCH ×4 (01:13→21:15)
[2017-04-23] MEDS: CHLORHEXIDINE GLUCONATE 2 % 1 PACK (2 CLOTHS) TOP SCH (01:14)
[2017-04-23] MEDS: RESP: ALBUTEROL 2.5 MG/IPRATROPIUM 0.5 MG NEB (SCH) NEB ×6 (04:05→23:48)
[2017-04-23] MEDS: METHOCARBAMOL 500 MG TAB PO SCH ×3 (05:45→21:15)
[2017-04-23] MEDS: methylPREDNISolone SOD SUCC 40 MG/1 ML VIAL IV PUSH SCH ×3 (05:45→17:39)
[2017-04-23] MEDS: HEPARIN SODIUM - SQ 10,000 UNITS/ML VIAL SQ SCH ×3 (05:45→21:16)
[2017-04-23 06:50] LABS: HEMOGLOBIN 14.1 GM/DL (13.0-17.0); MEAN CELL VOLUME 100.1 FL (80.0-100.0); MEAN CORPUSCULAR HEMOGLOBIN 34.4 PG (27.0-34.0); MEAN CORPUSCULAR HGB CONC 34.3 % (32.0-36.0); MEAN PLATELET VOLUME 8.5 FL (7.0-11.0); PLATELET COUNT 167 TH/MM3 (150-450); RED CELL DISTRIBUTION WIDTH 13.4 % (11.6-17.2); WHITE BLOOD COUNT 10.4 TH/MM3 (4.0-11.0)
[2017-04-23 07:00] LABS: BICARBONATE 33.9 MEQ/L (21.0-32.0); CREATININE 0.69 MG/DL (0.60-1.30)
[2017-04-23] MEDS: INSULIN NovoLIN REGULAR SUPPLEMENTAL SCALE SQ SCH ×4 (08:00→21:00)
--- NOTE | 2017-04-23 09:14 | HHI.CCPN ---
Subjective Remarks/Hospital Course 52 year old male who presents with a history of shortness of breath that began 2 days ago associated with a dry cough. The patient called ambulance services related to the shortness of breath and was noted to be saturating 92% on 2 L nasal cannula O2. The patient is normally on 2 L nasal cannula O2 continuously related to a history of COPD. The patient denies smoking currently. In the emergency department he has received the breathing treatment and IV steroids and was placed on BiPAP without any improvement. Continues to be severely hypoxemic patient was intubated by ED attending. Subjective: 04/18: Afebrile .The patient remains intubated and sedated. Maintaining oxygen saturation of 9697% on FiO2 40%. 04/19: The patient self extubated, O2 saturation in the 50's. Patient placed on nonrebreather mask 100% and then advance to BiPAP currently at 50%. She is alert and oriented following commands. O2 saturation now 97%. ABG pending. Will continue to wean. 1 extubation patient was noted to be, hypertensive extremely tachycardic heart rate in the 140s metoprolol initiated 2.5 mg every 6hrs . if tolerated will begin beta blockers (Metoprolol) PO, selective Beta 1. 04/20: Tmax 99.7. No acute events overnight. Patient remains on BiPAP 03/13.30% with O2 saturation 97%. The patient is tentatively scheduled for cardiac catheterization this a.m. Upon entering the room and performed physical examination and discussion with the patient, the patient requests to discuss with his head resident , prior to going for cardiac catheterization. 04/21: Afebrile . Patient denies chest pain .Cardiac catheterization canceled/ postponed yesterday, after consultation with Dr. Matos. Patient remains on BiPAP with FiO2 of 35%, O2 saturation 96%. Plan for initiation of high flow nasal cannula intermittently and resuming diet. 04/22: subjectively feels better and less dyspneic. remains o bipap. ct pulmonary angiogram without evidence of pe. per cardiology, will need C before discharge. afebrile. 04/23: clinically feels subjectively better. denies sob or complaints. states he is hungry. sitting up in chair on high flow nc, 40% fio2. Objective Vital Signs Date Time Temp Pulse Resp B/P (MAP) Pulse Ox O2 Delivery O2 Flow Rate FiO2 04/23/17 08:16 96 30 04/23/17 06:00 89 04/23/17 04:06 BiPAP 04/23/17 04:00 98.0 26 135/63 (87) 04/21/17 09:45 40.00 Intake and Output 04/23/17 04/23/17 04/24/17 08:00 16:00 00:00 Intake Total 830 ml Output Total 2500 ml Balance -1670 ml Result Diagram: 04/23/17 0546 04/23/17 0546 Imaging Last Impressions Chest X-Ray 04/20/17 0600 Signed Impressions: Service Date/Time: Thursday, April 20, 2017 04:15 - CONCLUSION: Bibasilar atelectasis. Rob Villarreal MD Last 24 hours Impressions Chest X-Ray 04/17/174 Signed Impressions: Service Date/Time: Monday, April 17, 2017 22:38 - CONCLUSION: Appropriate position of the endotracheal tube. Trace atelectasis and effusions of both bases. Michael Rosales MD Objective Remarks GENERAL: obese male patient on bipap SKIN: Warm and dry. HEAD: Normocephalic. evidence of skin breakdown on the bridge of the nose secondary to bipap use. EYES: No scleral icterus. No injection or drainage. NECK: Supple, trachea midline. large schmitz prevents accurate assessment of jvd. CARDIOVASCULAR: Regular rate and rhythm. Telemetry sinus rhythm RESPIRATORY: high flow nc. 35% fio2. unlabored. equal chest rise. severely diminished breath sounds throughout. GASTROINTESTINAL: Abdomen soft, protuberant, non-tender, nondistended. MUSCULOSKELETAL: No cyanosis, or edema. NEURO EXAM: GCS 15. RASS 0. Moving extremities 4, following commands A/P Assessment and Plan Assessment: 52yM with acute hypoxic and hypercarbic respiratory failure requiring NIPPV, off pathway and remains hypercarbic and intermittently in distress. Also with NSTEMI, likely type 2 and needs left heart cath evaluation prior to discharge. continue abx, supportive care. may alternate between high flow nc and bipap to maintain spo2 > 88%. defer to cardiology for timing of LHC. remain in ICU- high risk for decompensation. will attempt to use more high flow nc over bipap currently given skin breakdown on nasal bridge. Acute hypoxic and hypercarbic Respiratory failure COPD exacerbation RIGOBERTO - full course of 7 days of broad spectrum abx completes today, then will d/c. patient remains afebrile with normal wbc count, clinically improving. will monitor off abx after this. - Continue IV steroids - DuoNeb scheduled and when necessary - Self extubation 04/19. Currently on BiPAP 20/08.40, continue to wean. intermittent BiPAP and high flow nc. - Continue home meds -Spiriva, theophylline, Symbicort - Pulmonary consult Dr. Matos GI - heart healthy diet as tolerated. -Bowel regimen Hypertension NSTEMI, type 2 secondary to demand ischemia - home Lasix - Dr. Vásquez following - Left heart catherization scheduled 04/20, postponed - Metoprolol 2.5 mg IV every 6 hours PRN Hyperglycemia of critical illness - Insulin sliding scale BPH - Tamsulosin DVT GI prophylaxis - Teds SCDs - IV Pepcid SQH dispo: remain in ICU. high risk of decompensation. Grady Garcia MD Apr 23, 2017 09:14
[2017-04-23] MEDS: SODIUM CHLORIDE 0.9% FLUSH 10 ML FLUSH IV FLUSH SCH ×2 (09:42→21:16)
[2017-04-23] MEDS: FUROSEMIDE 40 MG TAB PO SCH (09:42)
[2017-04-23] MEDS: THEOPHYLLINE 200 MG EXTENDED RELEASE CAP PO SCH (09:42)
[2017-04-23] MEDS: ASPIRIN EC 81 MG TABEC PO SCH (09:42)
[2017-04-23] MEDS: DOCUSATE SODIUM 50 MG/SENNA 8.6 MG TAB PO SCH ×2 (09:42→21:15)
[2017-04-23] MEDS: guaiFENesin E.R. 600 MG TAB PO SCH ×2 (09:42→21:15)
[2017-04-23] MEDS: FAMOTIDINE 20 MG/2 ML VIAL IV PUSH SCH ×2 (09:43→21:15)
[2017-04-23] MEDS: BUDESONIDE-FORMOTEROL 80/4.5 MCG INHALER INH SCH ×2 (09:45→21:16)
--- NOTE | 2017-04-23 10:35 | MB ---
[id number]: [place] RU[place] DATE OF CONSULTATION 04/20/[address] Baker REASON FOR CONSULTATION Pulmonary management HISTORY OF PRESENT ILLNESS Mr. Sevilla is a 52-year-old male with a history of COPD. He had a PFT done in August of 2015. His FEV1 0.46 which is only 15% of predicted. He has a history of obstructive sleep apnea. He uses oxygen and C-PAP machine at home and his baseline he can barely walk . The patient was brought to the hospital. He was complaining of shortness of breath for about two days or so. He did not have any fevers, night sweats, or chest pain. He was evaluated in the hospital. His WBC count is 10.8, hemoglobin 13.6, hematocrit 40.8, MCV 100, platelets count 140. Blood gas pH 7.32, pCO2 50, pO2 113 on 35% via FIO2. Sodium 140, potassium 5.1, chloride 108, CO2 29, BUN 29, creatinine 0.80, his troponin is 1.96. PAST MEDICAL HISTORY Significant for a history of: 1. COPD with an FEV1 of 0.46, 15% of predicted. 2. Sleep apnea 3. BPH 4. Chronic respiratory failure MEDICATIONS He is currently takin. Symbicort 160/4.5 two puffs twice a day 2. Theophylline 400 mg daily 3. Nasonex twice a day 4. Famotidine 20 mg daily 5. Robaxin 500 mg q8h 6. Zosyn IV 7. Albuterol/Atrovent nebulizer treatment 8. Zithromax 500 mg daily ALLERGIES No known drug allergies. SOCIAL HISTORY He has a history of smoking in the past. FAMILY HISTORY He has a son who is in the [place] and lives with a roommate. REVIEW OF SYSTEMS He can barely walk inside the house. He uses a C-PAP machine. No DVT, pulmonary embolus. No seizures. A 12-point review of systems as noted in the HPI. PHYSICAL EXAM This is a elderly male who looks older than his stated age with mild to moderate shortness of breath. VITAL SIGNS: His blood pressure 115/79, heart rate 86, respirations 20, temperature 98.6. HEAD, EYES, EARS, NOSE, AND THROAT: Pupils are equal and reactive. NECK: Supple. No JVD. CHEST: He has decreased chest excursion. He has expiratory rhonchi and wheezes. CARDIAC: S1 and S2 normal. ABDOMEN: Soft, nontender, nondistended. Bowel sounds are present. EXTREMITIES: He has pedal edema. DESIGN SALES CONSULTANT: He is alert and oriented times three. No focal deficits are detected. IMPRESSION 1. Acute on chronic respiratory failure. 2. History of COPD on oxygen at 15%. 3. Non-STEM 4. Obstructive sleep apnea PLAN I discussed with the patient his overall prognosis is probably because of his very frail underlying COPD. The patient is being followed by Dr. Vásquez and he will discuss with him any intervention to help him. We will continue with BI-PAP, give him aerosol treatment, theophylline 24 mg twice a day and I will put him on Solu-Medrol. Continue antibiotics and I will put him on Solu-Medrol 40 mg q6h. Further treatment will depend upon the course in the hospital. Thank you, Dr. Baker, for this consult. MD SIMONE Hidalgo/LUKASZ /11:52 AM /10:26 AM JAVI
[2017-04-23] MEDS: ACETAMINOPHEN 325 MG TAB PO PRN (14:13)
--- NOTE | 2017-04-23 15:57 | PD.CARD.PN ---
Subjective Subjective Remarks denies chest pain, in nad, off bipap Objective Medications Current Medications Medications (Trade) Dose Ordered Sig/[place] Route Start Time Stop Time Status Last Admin (Symbicort 80-4.5 Mcg Inh) 1 puff Q12HR INH 04/18/17 09:00 04/23/17 09:45 (Lovenox Inj) 40 mg Q24H SQ 04/18/17 00:15 Future Hold 04/19/17 01:27 (Robaxin) 500 mg Q8HR PO 04/18/17 06:00 04/23/17 13:59 (Flomax) 0.4 mg HS PO 04/18/17 21:00 04/22/17 20:52 (Dakota-24) 400 mg DAILY PO 04/18/17 09:00 04/23/17 09:42 (Mucinex Er) 600 mg BID PO 04/18/17 09:00 04/23/17 09:42 (NS Flush) 2 ml UNSCH PRN IV FLUSH 04/18/17 00:30 (NS Flush) 2 ml BID IV FLUSH 04/18/17 09:00 04/23/17 09:42 (Tylenol) 650 mg Q6H PRN PO 04/18/17 00:30 04/23/17 14:13 (Pepcid Inj) 20 mg Q12HR IV PUSH 04/18/17 09:00 04/23/17 09:43 (Zofran Inj) 4 mg Q6H PRN IV PUSH 04/18/17 00:30 (Duoneb Neb) 1 ampule Q2HR NEB PRN INH 04/18/17 00:30 04/21/17 14:00 Miscellaneous Information 1 Q361D XX 04/18/17 00:30 04/18/17 00:30 (Chlorhexidine 2% Cloth) Taper DAILY@04 TOP 04/18/17 04:00 04/14/18 03:59 04/23/17 01:14 (Chlorhexidine 2% Cloth) 3 pack UNSCH PRN TOP 04/18/17 00:30 (Edna-Colace) 1 tab BID PO 04/18/17 09:00 04/23/17 09:42 (Milk Of Magnesia Liq) 30 ml Q12H PRN PO 04/18/17 00:30 (Senokot) 17.2 mg Q12H PRN PO 04/18/17 00:30 (Dulcolax Supp) 10 mg DAILY PRN RECTAL 04/18/17 00:30 (Lactulose Liq) 30 ml DAILY PRN PO 04/18/17 00:30 Piperacillin Sod/ Tazobactam Sod 100 ml @ 200 mls/hr Q6H IV 04/18/17 02:00 04/24/17 02:00 04/23/17 13:59 (D50w (Vial) Inj) 50 ml UNSCH PRN IV PUSH 04/18/17 00:45 (Glucagon Inj) 1 mg UNSCH PRN OTHER 04/18/17 00:45 (NovoLIN R SUPPLEMENTAL SCALE) 1 ACHS SLIDING SCALE SQ 04/18/17 08:00 04/23/17 12:15 (Ecotrin Ec) 81 mg DAILY PO 04/19/17 09:00 04/23/17 09:42 (Lopressor Inj) 2.5 mg Q6H PRN IV PUSH 04/19/17 09:15 04/21/17 17:53 (SoluMEDROL INJ) 40 mg Q6HR IV PUSH 04/20/17 12:00 04/23/17 12:15 (Lasix) 40 mg DAILY PO 04/21/17 10:30 04/23/17 09:42 (Duoneb Neb) 1 ampule Q4HR NEB NEB 04/22/17 12:00 04/23/17 15:24 (Heparin Inj) 5,000 units Q8HR SQ 04/22/17 22:00 04/23/17 13:59 Vital Signs / I&O Vital Signs Date Time Temp Pulse Resp B/P (MAP) Pulse Ox O2 Delivery O2 Flow Rate FiO2 04/23/17 15:13 18 04/23/17 14:00 105 04/23/17 12:00 97 04/23/17 12:00 98.7 97 27 166/85 (112) 90 04/23/17 10:00 113 04/23/17 08:16 96 30 04/23/17 08:00 97.9 102 22 140/83 (102) 91 04/23/17 08:00 102 04/23/17 07:00 91 Nasal Cannula 40.00 Command Center Officer 04/23/17 06:00 89 04/23/17 04:06 94 BiPAP 30 04/23/17 04:06 94 30 04/23/17 04:00 84 04/23/17 04:00 98.0 84 26 135/63 (87) 92 04/23/17 02:00 90 04/23/17 00:00 98.4 104 28 155/91 (112) 96 04/23/17 00:00 104 04/22/17 23:51 96 30 04/22/17 23:50 94 BiPAP 04/22/17 22:22 91 30 04/22/17 22:00 106 04/22/17 20:00 97.9 109 20 151/86 (107) 91 04/22/17 20:00 109 04/22/17 20:00 Bi-Pap 30 04/22/17 19:38 95 30 04/22/17 18:00 104 04/22/17 16:00 105 04/22/17 16:00 99.0 105 29 157/81 (106) 97 I/O 04/22/17 04/22/17 04/22/17 04/23/17 04/23/17 04/23/17 07:00 15:00 23:00 07:00 15:00 23:00 Intake Total 830 ml 100 ml 950 ml 830 ml Output Total 1500 ml 2225 ml 2500 ml Balance -670 ml 100 ml -1275 ml -1670 ml Intake Oral 480 ml 750 ml 480 ml IV Total 350 ml 100 ml 200 ml 350 ml Output Urine Total 1500 ml 2225 ml 2500 ml # Bowel Movements 1 1 Physical Exam GENERAL: SKIN: Warm and dry. HEAD: Normocephalic. EYES: No scleral icterus. No injection or drainage. NECK: Supple, trachea midline. No JVD or lymphadenopathy. CARDIOVASCULAR: Regular rate and rhythm without murmurs, gallops, or rubs. RESPIRATORY: Breath sounds equal bilaterally. No accessory muscle use. GASTROINTESTINAL: Abdomen soft, non-tender, nondistended. MUSCULOSKELETAL: No cyanosis, or edema. BACK: Nontender without obvious deformity. No CVA tenderness. Laboratory Laboratory Tests Test 04/23/17 05:46 White Blood Count 10.4 TH/MM3 Red Blood Count 4.10 MIL/MM3 Hemoglobin 14.1 GM/DL Hematocrit 41.0 % Mean Corpuscular Volume 100.1 FL Mean Corpuscular Hemoglobin 34.4 PG Mean Corpuscular Hemoglobin Concent 34.3 % Red Cell Distribution Width 13.4 % Platelet Count 167 TH/MM3 Mean Platelet Volume 8.5 FL Blood Urea Nitrogen 22 MG/DL Creatinine 0.69 MG/DL Random Glucose 136 MG/DL Calcium Level 9.0 MG/DL Sodium Level 141 MEQ/L Potassium Level 3.9 MEQ/L Chloride Level 103 MEQ/L Carbon Dioxide Level 33.9 MEQ/L Anion Gap 4 MEQ/L Estimat Glomerular Filtration Rate 119 ML/MIN Assessment and Plan Problem List: (1) COPD (chronic obstructive pulmonary disease) ICD Codes: J44.9 - Chronic obstructive pulmonary disease, unspecified Status: Chronic Assessment and Plan 1.) NSTEMI - patient remains undecided @ [facility], will continue medical management, he denies chest pain, possible cath 04/25/17 if he consents Problem Qualifiers (1) COPD (chronic obstructive pulmonary disease): Qualified Codes: J44.9 - Chronic obstructive pulmonary disease, unspecified Gaston Vásquez MD Apr 23, 2017 15:57
--- NOTE | 2017-04-23 19:11 | HHI.PR ---
Subjective Remarks Patient is on BIPAP18/5 wih 35% FIO2. CT chest yesterday showed no PE, right basilar pneumonia. Patient is awake and alert. Afebrile On high flow 100% Up on the side of bed. Objective Vital Signs Vital Signs Date Time Temp Pulse Resp B/P (MAP) Pulse Ox O2 Delivery O2 Flow Rate FiO2 04/23/17 18:00 100 04/23/17 16:00 98.6 105 25 176/92 (120) 90 04/23/17 16:00 105 04/23/17 15:13 18 04/23/17 14:00 105 04/23/17 12:00 97 04/23/17 12:00 98.7 97 27 166/85 (112) 90 04/23/17 10:00 113 04/23/17 08:16 96 30 04/23/17 08:00 97.9 102 22 140/83 (102) 91 04/23/17 08:00 102 04/23/17 07:00 91 Nasal Cannula 40.00 Microwave Radio Technician 04/23/17 06:00 89 04/23/17 04:06 94 BiPAP 30 04/23/17 04:06 94 30 04/23/17 04:00 84 04/23/17 04:00 98.0 84 26 135/63 (87) 92 04/23/17 02:00 90 04/23/17 00:00 98.4 104 28 155/91 (112) 96 04/23/17 00:00 104 04/22/17 23:51 96 30 04/22/17 23:50 94 BiPAP 04/22/17 22:22 91 30 04/22/17 22:00 106 04/22/17 20:00 97.9 109 20 151/86 (107) 91 04/22/17 20:00 109 04/22/17 20:00 Bi-Pap 30 04/22/17 19:38 95 30 I/O 04/22/17 04/22/17 04/22/17 04/23/17 04/23/17 04/23/17 07:00 15:00 23:00 07:00 15:00 23:00 Intake Total 830 ml 100 ml 950 ml 830 ml 200 ml 480 ml Output Total 1500 ml 2225 ml 2500 ml 1750 ml Balance -670 ml 100 ml -1275 ml -1670 ml 200 ml -1270 ml Intake Oral 480 ml 750 ml 480 ml 480 ml IV Total 350 ml 100 ml 200 ml 350 ml 200 ml Output Urine Total 1500 ml 2225 ml 2500 ml 1750 ml # Bowel Movements 1 1 1 Result Diagram: 04/23/17 0546 04/23/17 0546 Objective Remarks GENERAL: Patient is 52 yo on BIPAP SKIN: Warm and dry. HEAD: Normocephalic. EYES: No scleral icterus. No injection or drainage. NECK: Supple, trachea midline. No JVD or lymphadenopathy. CARDIOVASCULAR: Regular rate and rhythm without murmurs, gallops, or rubs. RESPIRATORY: Breath sounds equal bilaterally. Few coarse BS GASTROINTESTINAL: Abdomen soft, non-tender, nondistended. MUSCULOSKELETAL: No cyanosis, or edema. BACK: Nontender without obvious deformity. No CVA tenderness. Neuro: Awake and alert A/P Assessment and Plan 1)Acute hypercapnic and hypoxic resp failure 2)COPD 3) Right basilar pneumonia 4) Obstructive sleep apnea 5)NSTEMI 6)HTN PLAN Continue with oxygen keep sat >92% Bronchodilators ( Duoneb, Symbicort), IS. On Theodur 400mg daily Continue with solumederol 40mg Q6 BIPAP PRN during day and nocturnally qhs Continue with abx ( Zosyn, Zithromax), sputum 1/0: normal resp marielle Continue with Lasix 40mg daily. GI/DVT prophylaxis- per primary team Jerry Matos MD Apr 23, 2017 19:11
[2017-04-23] MEDS: TAMSULOSIN HCL 0.4 MG CAP PO SCH (21:15)
[2017-04-24] VITALS (15 sets, daily range): BP systolic 138–167; BP diastolic 70–104; PULSE 85–113; RESP 20–40; TEMP 97.8–99.1; O2SAT 93–97
[2017-04-24] MEDS: PIPERACIL-TAZO 4.5 GM PREMIX 100 ML IV SCH (01:09)
[2017-04-24] MEDS: ACETAMINOPHEN 325 MG TAB PO PRN (01:09)
[2017-04-24] MEDS: methylPREDNISolone SOD SUCC 40 MG/1 ML VIAL IV PUSH SCH ×4 (01:09→17:59)
[2017-04-24] MEDS: RESP: ALBUTEROL 2.5 MG/IPRATROPIUM 0.5 MG NEB (SCH) NEB ×6 (03:35→23:59)
[2017-04-24] MEDS: CHLORHEXIDINE GLUCONATE 2 % 1 PACK (2 CLOTHS) TOP SCH (04:00)
--- NOTE | 2017-04-24 05:17 | RADRPT ---
EXAM DATE/TIME: 04/24/2017 04:18 [place] COMPARISON: CHEST SINGLE AP, April 22, 2017, 4:09. INDICATIONS : Short of breath. MEDICAL HISTORY : None. SURGICAL HISTORY : None. ENCOUNTER: Subsequent ACUITY: 1 week PAIN SCORE: 0/10 LOCATION: Bilateral chest FINDINGS: The heart size is normal. There is linear suspected atelectasis of the medial left upper lobe and at the left base. There is mild increased density seen at the right base. CONCLUSION: Suspected right lower lobe consolidation or atelectasis. There is linear suspected atelectasis at the left lung. Michael Jackson MD on April 24, 2017 at 5:13 Board Certified Radiologist. This report was verified electronically.
[2017-04-24 05:21] LABS: HEMATOCRIT 43.2 % (39.0-51.0); HEMOGLOBIN 14.4 GM/DL (13.0-17.0); MEAN CELL VOLUME 100.3 FL (80.0-100.0); MEAN CORPUSCULAR HEMOGLOBIN 33.4 PG (27.0-34.0); MEAN CORPUSCULAR HGB CONC 33.3 % (32.0-36.0); PLATELET COUNT 150 TH/MM3 (150-450); RED CELL DISTRIBUTION WIDTH 13.2 % (11.6-17.2)
[2017-04-24 05:46] LABS: BICARBONATE 38.3 MEQ/L (21.0-32.0); CALCIUM 9.5 MG/DL (8.5-10.1); CREATININE 0.83 MG/DL (0.60-1.30)
[2017-04-24] MEDS: METHOCARBAMOL 500 MG TAB PO SCH ×3 (06:00→20:57)
[2017-04-24] MEDS: HEPARIN SODIUM - SQ 10,000 UNITS/ML VIAL SQ SCH ×3 (06:00→20:57)
[2017-04-24] MEDS: INSULIN NovoLIN REGULAR SUPPLEMENTAL SCALE SQ SCH ×4 (07:32→21:07)
[2017-04-24] MEDS: FAMOTIDINE 20 MG/2 ML VIAL IV PUSH SCH ×2 (08:04→20:57)
[2017-04-24] MEDS: guaiFENesin E.R. 600 MG TAB PO SCH ×2 (08:04→20:57)
[2017-04-24] MEDS: THEOPHYLLINE 200 MG EXTENDED RELEASE CAP PO SCH (08:04)
[2017-04-24] MEDS: DOCUSATE SODIUM 50 MG/SENNA 8.6 MG TAB PO SCH ×2 (08:04→20:57)
[2017-04-24] MEDS: ASPIRIN EC 81 MG TABEC PO SCH (08:04)
[2017-04-24] MEDS: FUROSEMIDE 40 MG TAB PO SCH (08:04)
[2017-04-24] MEDS: BUDESONIDE-FORMOTEROL 80/4.5 MCG INHALER INH SCH ×2 (08:05→20:58)
[2017-04-24] MEDS: SODIUM CHLORIDE 0.9% FLUSH 10 ML FLUSH IV FLUSH SCH ×2 (09:00→20:57)
--- NOTE | 2017-04-24 09:05 | HHI.CCPN ---
Subjective Remarks/Hospital Course 52 year old male who presents with a history of shortness of breath that began 2 days ago associated with a dry cough. The patient called ambulance services related to the shortness of breath and was noted to be saturating 92% on 2 L nasal cannula O2. The patient is normally on 2 L nasal cannula O2 continuously related to a history of COPD. The patient denies smoking currently. In the emergency department he has received the breathing treatment and IV steroids and was placed on BiPAP without any improvement. Continues to be severely hypoxemic patient was intubated by ED attending. Subjective: 04/18: Afebrile .The patient remains intubated and sedated. Maintaining oxygen saturation of 9697% on FiO2 40%. 04/19: The patient self extubated, O2 saturation in the 50's. Patient placed on nonrebreather mask 100% and then advance to BiPAP currently at 50%. She is alert and oriented following commands. O2 saturation now 97%. ABG pending. Will continue to wean. 1 extubation patient was noted to be, hypertensive extremely tachycardic heart rate in the 140s metoprolol initiated 2.5 mg every 6hrs . if tolerated will begin beta blockers (Metoprolol) PO, selective Beta 1. 04/20: Tmax 99.7. No acute events overnight. Patient remains on BiPAP 03/13.30% with O2 saturation 97%. The patient is tentatively scheduled for cardiac catheterization this a.m. 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 04/21: Afebrile . Patient denies chest pain .Cardiac catheterization canceled/ postponed yesterday, after consultation with Dr. Matos. Patient remains on BiPAP with FiO2 of 35%, O2 saturation 96%. Plan for initiation of high flow nasal cannula intermittently and resuming diet. 04/22: subjectively feels better and less dyspneic. remains o bipap. ct pulmonary angiogram without evidence of pe. per cardiology, will need [facility] before discharge. afebrile. 04/23: clinically feels subjectively better. denies sob or complaints. states he is hungry. sitting up in chair on high flow nc, 40% fio2. 04/24 Patient was placed on BIPAP overnight. Afebrile. Objective Vital Signs Date Time Temp Pulse Resp B/P (MAP) Pulse Ox O2 Delivery O2 Flow Rate FiO2 04/24/17 07:00 93 Bi-Pap 30 04/24/17 06:00 94 04/24/17 04:00 97.9 21 150/70 (96) 04/24/17 00:00 30.00 Intake and Output 04/24/17 04/24/17 04/25/17 08:00 16:00 00:00 Intake Total 100 ml Output Total 1700 ml Balance -1600 ml Result Diagram: 04/24/17 0430 04/24/17 0430 Other Results Laboratory Tests Test 04/24/17 04:30 04/24/17 05:35 White Blood Count 10.0 TH/MM3 Red Blood Count 4.30 MIL/MM3 Hemoglobin 14.4 GM/DL Hematocrit 43.2 % Mean Corpuscular Volume 100.3 FL Mean Corpuscular Hemoglobin 33.4 PG Mean Corpuscular Hemoglobin Concent 33.3 % Red Cell Distribution Width 13.2 % Platelet Count 150 TH/MM3 Mean Platelet Volume 8.0 FL Blood Urea Nitrogen 24 MG/DL Creatinine 0.83 MG/DL Random Glucose 129 MG/DL Calcium Level 9.5 MG/DL Sodium Level 141 MEQ/L Potassium Level 4.0 MEQ/L Chloride Level 98 MEQ/L Carbon Dioxide Level 38.3 MEQ/L Anion Gap 5 MEQ/L Estimat Glomerular Filtration Rate 97 ML/MIN Blood Gas Puncture Site RT RADIAL Blood Gas Patient Temperature 98.6 Blood Gas HCO3 38 mmol/L Blood Gas Base Excess 10.4 mmol/L Blood Gas Oxygen Saturation 91 % Arterial Blood pH 7.26 Arterial Blood Partial Pressure CO2 87 mmHg Arterial Blood Partial Pressure O2 72 mmHg Arterial Blood Oxygen Content 19.2 Vol % Arterial Blood Carboxyhemoglobin 1.0 % Arterial Blood Methemoglobin 1.3 % Blood Gas Hemoglobin 15.0 G/DL Oxygen Delivery Device HIGHFLOW NC Blood Gas Liter Flow 30 L/M Blood Gas Inspired Oxygen 60 % Imaging Last Impressions Chest X-Ray 04/24/17 0600 Signed Impressions: Service Date/Time: Monday, April 24, 2017 04:18 - CONCLUSION: Suspected right lower lobe consolidation or atelectasis. There is linear suspected atelectasis at the left lung. Michael Jackson MD CT Angiography 04/21/17 0000 Signed Impressions: Service Date/Time: Friday, April 21, 2017 13:29 - CONCLUSION: 1. No evidence of pulmonary embolism. 2. Air consolidation the right lung base concerning for pneumonia. 3. Underlying emphysema and apparent scarring. 4. Cirrhotic appearing liver. Hermes Poalnco MD Objective Remarks GENERAL: obese male patient on bipap SKIN: Warm and dry. HEAD: Normocephalic. evidence of skin breakdown on the bridge of the nose secondary to bipap use. EYES: No scleral icterus. No injection or drainage. NECK: Supple, trachea midline. large schmitz prevents accurate assessment of jvd. CARDIOVASCULAR: Regular rate and rhythm. Telemetry sinus rhythm RESPIRATORY: high flow nc. 35% fio2. unlabored. equal chest rise. severely diminished breath sounds throughout. GASTROINTESTINAL: Abdomen soft, protuberant, non-tender, nondistended. MUSCULOSKELETAL: No cyanosis, or edema. NEURO EXAM: GCS 15. RASS 0. Moving extremities 4, following commands A/P Assessment and Plan Assessment: 52yM with acute hypoxic and hypercarbic respiratory failure requiring NIPPV, off pathway and remains hypercarbic and intermittently in distress. Also with NSTEMI, likely type 2 and needs left heart cath evaluation prior to discharge. continue abx, supportive care. may alternate between high flow nc and bipap to maintain spo2 > 88%. defer to cardiology for timing of LHC. remain in ICU- high risk for decompensation. Neuro: Awake and alert, avoid sedatives Acute hypoxic and hypercarbic Respiratory failure COPD exacerbation RIGOBERTO - Continue with oxygen keep sat >92% - Continue IV steroids-Solumederol 40mg Q6 - DuoNeb scheduled and when necessary - Self extubation 04/19. Currently on BiPAP 14/5.40, continue to wean. intermittent BiPAP and high flow nc. - Continue home meds -theophylline, Symbicort - Pulmonary is following- Dr. Matos GI - heart healthy diet as tolerated. -Bowel regimen Hypertension NSTEMI, type 2 secondary to demand ischemia - Monitor HR and BP keep MAP>65mmHg - Dr. Vásquez following - Place on [id number] Q12 ID: Monitor for signs of infections ( Fever, WBC) Off abx(s/p Zosyn and Azithromycin course) cultures: NGTD BPH - Tamsulosin Monitor renal function, I/O's, electrolytes replacement per protocol. d/c Lasix Endo: - SSI with accuchecks to maintain Euglycemia Heme: Monitor CBC DVT GI prophylaxis - Teds SCDs - IV Pepcid SQH Level 3 Elio Buchanan MD Apr 24, 2017 09:05
[2017-04-24] MEDS: METOPROLOL TARTRATE 50 MG TAB PO SCH ×2 (10:00→20:57)
--- NOTE | 2017-04-24 15:33 | PD.CARD.PN ---
Subjective Subjective Remarks denies chest pain, in nad, intermittently still on bipap Objective Medications Current Medications Medications (Trade) Dose Ordered Sig/[place] Route Start Time Stop Time Status Last Admin (Symbicort 80-4.5 Mcg Inh) 1 puff Q12HR INH 04/18/17 09:00 04/24/17 08:05 (Lovenox Inj) 40 mg Q24H SQ 04/18/17 00:15 Future Hold 04/19/17 01:27 (Robaxin) 500 mg Q8HR PO 04/18/17 06:00 04/24/17 06:00 (Flomax) 0.4 mg HS PO 04/18/17 21:00 04/23/17 21:15 (Dakota-24) 400 mg DAILY PO 04/18/17 09:00 04/24/17 08:04 (Mucinex Er) 600 mg BID PO 04/18/17 09:00 04/24/17 08:04 (NS Flush) 2 ml UNSCH PRN IV FLUSH 04/18/17 00:30 (NS Flush) 2 ml BID IV FLUSH 04/18/17 09:00 04/24/17 09:00 (Tylenol) 650 mg Q6H PRN PO 04/18/17 00:30 04/24/17 01:09 (Pepcid Inj) 20 mg Q12HR IV PUSH 04/18/17 09:00 04/24/17 08:04 (Zofran Inj) 4 mg Q6H PRN IV PUSH 04/18/17 00:30 (Duoneb Neb) 1 ampule Q2HR NEB PRN INH 04/18/17 00:30 04/21/17 14:00 Miscellaneous Information 1 Q361D XX 04/18/17 00:30 04/18/17 00:30 (Chlorhexidine 2% Cloth) Taper DAILY@04 TOP 04/18/17 04:00 04/14/18 03:59 04/24/17 04:00 (Chlorhexidine 2% Cloth) 3 pack UNSCH PRN TOP 04/18/17 00:30 (Edna-Colace) 1 tab BID PO 04/18/17 09:00 04/23/17 21:15 (Milk Of Magnesia Liq) 30 ml Q12H PRN PO 04/18/17 00:30 (Senokot) 17.2 mg Q12H PRN PO 04/18/17 00:30 (Dulcolax Supp) 10 mg DAILY PRN RECTAL 04/18/17 00:30 (Lactulose Liq) 30 ml DAILY PRN PO 04/18/17 00:30 (D50w (Vial) Inj) 50 ml UNSCH PRN IV PUSH 04/18/17 00:45 (Glucagon Inj) 1 mg UNSCH PRN OTHER 04/18/17 00:45 (NovoLIN R SUPPLEMENTAL SCALE) 1 ACHS SLIDING SCALE SQ 04/18/17 08:00 04/24/17 11:42 (Ecotrin Ec) 81 mg DAILY PO 04/19/17 09:00 04/24/17 08:04 (Lopressor Inj) 2.5 mg Q6H PRN IV PUSH 04/19/17 09:15 04/21/17 17:53 (SoluMEDROL INJ) 40 mg Q6HR IV PUSH 04/20/17 12:00 04/24/17 11:42 (Duoneb Neb) 1 ampule Q4HR NEB NEB 04/22/17 12:00 04/24/17 15:04 (Heparin Inj) 5,000 units Q8HR SQ 04/22/17 22:00 04/24/17 06:00 (Lopressor) 25 mg Q12HR PO 04/24/17 09:00 04/24/17 10:00 Vital Signs / I&O Vital Signs Date Time Temp Pulse Resp B/P (MAP) Pulse Ox O2 Delivery O2 Flow Rate FiO2 04/24/17 13:37 93 Nasal Cannula 4.00 04/24/17 10:00 112 04/24/17 10:00 85 04/24/17 08:00 98.1 85 20 145/74 (97) 94 04/24/17 08:00 85 04/24/17 07:00 93 Bi-Pap 30 04/24/17 06:00 94 04/24/17 06:00 96 30 04/24/17 05:45 94 Bi-Pap 30 04/24/17 04:00 96 04/24/17 04:00 97.9 96 21 150/70 (96) 93 04/24/17 02:00 99 04/24/17 00:00 113 04/24/17 00:00 94 Nasal Cannula 30.00 60 04/24/17 00:00 98.0 113 34 167/79 (108) 94 04/23/17 22:00 108 04/23/17 20:00 98.8 110 30 170/95 (120) 94 04/23/17 20:00 110 04/23/17 19:23 92 30 04/23/17 19:00 94 Bi-Pap 30 04/23/17 18:00 100 04/23/17 16:00 98.6 105 25 176/92 (120) 90 04/23/17 16:00 105 I/O 04/23/17 04/23/17 04/23/17 04/24/17 04/24/17 04/24/17 07:00 15:00 23:00 07:00 15:00 23:00 Intake Total 830 ml 200 ml 580 ml 100 ml Output Total 2500 ml 1750 ml 1700 ml Balance -1670 ml 200 ml -1170 ml -1600 ml Intake Oral 480 ml 480 ml IV Total 350 ml 200 ml 100 ml 100 ml Output Urine Total 2500 ml 1750 ml 1700 ml # Bowel Movements 1 1 Physical Exam GENERAL: SKIN: Warm and dry. HEAD: Normocephalic. EYES: No scleral icterus. No injection or drainage. NECK: Supple, trachea midline. No JVD or lymphadenopathy. CARDIOVASCULAR: Regular rate and rhythm without murmurs, gallops, or rubs. RESPIRATORY: Breath sounds equal bilaterally. No accessory muscle use. GASTROINTESTINAL: Abdomen soft, non-tender, nondistended. MUSCULOSKELETAL: No cyanosis, or edema. BACK: Nontender without obvious deformity. No CVA tenderness. Laboratory Laboratory Tests Test 04/24/17 04:30 04/24/17 05:35 White Blood Count 10.0 TH/MM3 Red Blood Count 4.30 MIL/MM3 Hemoglobin 14.4 GM/DL Hematocrit 43.2 % Mean Corpuscular Volume 100.3 FL Mean Corpuscular Hemoglobin 33.4 PG Mean Corpuscular Hemoglobin Concent 33.3 % Red Cell Distribution Width 13.2 % Platelet Count 150 TH/MM3 Mean Platelet Volume 8.0 FL Blood Urea Nitrogen 24 MG/DL Creatinine 0.83 MG/DL Random Glucose 129 MG/DL Calcium Level 9.5 MG/DL Sodium Level 141 MEQ/L Potassium Level 4.0 MEQ/L Chloride Level 98 MEQ/L Carbon Dioxide Level 38.3 MEQ/L Anion Gap 5 MEQ/L Estimat Glomerular Filtration Rate 97 ML/MIN Blood Gas Puncture Site RT RADIAL Blood Gas Patient Temperature 98.6 Blood Gas HCO3 38 mmol/L Blood Gas Base Excess 10.4 mmol/L Blood Gas Oxygen Saturation 91 % Arterial Blood pH 7.26 Arterial Blood Partial Pressure CO2 87 mmHg Arterial Blood Partial Pressure O2 72 mmHg Arterial Blood Oxygen Content 19.2 Vol % Arterial Blood Carboxyhemoglobin 1.0 % Arterial Blood Methemoglobin 1.3 % Blood Gas Hemoglobin 15.0 G/DL Oxygen Delivery Device HIGHFLOW NC Blood Gas Liter Flow 30 L/M Blood Gas Inspired Oxygen 60 % Imaging Last 24 hours Impressions Chest X-Ray 04/24/17 0600 Signed Impressions: Service Date/Time: Monday, April 24, 2017 04:18 - CONCLUSION: Suspected right lower lobe consolidation or atelectasis. There is linear suspected atelectasis at the left lung. Michael Jackson MD Assessment and Plan Problem List: (1) COPD (chronic obstructive pulmonary disease) ICD Codes: J44.9 - Chronic obstructive pulmonary disease, unspecified Status: Chronic Assessment and Plan 1.) NSTEMI - patient remains consents to [facility], will continue medical management, he denies chest pain, cath 04/25/17 if he signs consent Problem Qualifiers (1) COPD (chronic obstructive pulmonary disease): Qualified Codes: J44.9 - Chronic obstructive pulmonary disease, unspecified Gaston Vásquez MD Apr 24, 2017 15:33
--- NOTE | 2017-04-24 19:09 | HHI.PR ---
Subjective Remarks Patient is on BIPAP18/5 wih 35% FIO2. CT chest yesterday showed no PE, right basilar pneumonia. Patient is awake and alert. Afebrile Used BIPAP Weaned to 4LNC Up on the side of bed. Objective Vital Signs Vital Signs Date Time Temp Pulse Resp B/P (MAP) Pulse Ox O2 Delivery O2 Flow Rate FiO2 04/24/17 18:00 103 04/24/17 16:00 97.9 100 25 138/76 (96) 95 04/24/17 16:00 100 04/24/17 14:00 102 04/24/17 13:37 93 Nasal Cannula 4.00 04/24/17 12:00 94 04/24/17 12:00 97.8 94 40 164/104 (124) 95 04/24/17 10:00 112 04/24/17 10:00 85 04/24/17 08:00 98.1 85 20 145/74 (97) 94 04/24/17 08:00 85 04/24/17 07:00 93 Bi-Pap 30 04/24/17 06:00 94 04/24/17 06:00 96 30 04/24/17 05:45 94 Bi-Pap 30 04/24/17 04:00 96 04/24/17 04:00 97.9 96 21 150/70 (96) 93 04/24/17 02:00 99 04/24/17 00:00 113 04/24/17 00:00 94 Nasal Cannula 30.00 60 04/24/17 00:00 98.0 113 34 167/79 (108) 94 04/23/17 22:00 108 04/23/17 20:00 98.8 110 30 170/95 (120) 94 04/23/17 20:00 110 04/23/17 19:23 92 30 I/O 04/23/17 04/23/17 04/23/17 04/24/17 04/24/17 04/24/17 07:00 15:00 23:00 07:00 15:00 23:00 Intake Total 830 ml 200 ml 580 ml 100 ml 500 ml Output Total 2500 ml 1750 ml 1700 ml 1780 ml Balance -1670 ml 200 ml -1170 ml -1600 ml -1280 ml Intake Oral 480 ml 480 ml 500 ml IV Total 350 ml 200 ml 100 ml 100 ml Output Urine Total 2500 ml 1750 ml 1700 ml 1780 ml # Bowel Movements 1 1 2 Result Diagram: 04/24/1742904/24/17429 Objective Remarks GENERAL: Patient is 52 yo on BIPAP SKIN: Warm and dry. HEAD: Normocephalic. EYES: No scleral icterus. No injection or drainage. NECK: Supple, trachea midline. No JVD or lymphadenopathy. CARDIOVASCULAR: Regular rate and rhythm without murmurs, gallops, or rubs. RESPIRATORY: Breath sounds equal bilaterally. Few coarse BS GASTROINTESTINAL: Abdomen soft, non-tender, nondistended. MUSCULOSKELETAL: No cyanosis, or edema. BACK: Nontender without obvious deformity. No CVA tenderness. Neuro: Awake and alert A/P Assessment and Plan 1)Acute hypercapnic and hypoxic resp failure 2)COPD 3) Right basilar pneumonia 4) Obstructive sleep apnea 5)NSTEMI 6)HTN PLAN Continue with oxygen keep sat >92% Bronchodilators ( Duoneb, Symbicort), IS. On Theodur 400mg daily Continue with solumederol 40mg Q6 BIPAP PRN during day and nocturnally qhs Continue with abx ( Zosyn, Zithromax), sputum 1/0: normal resp marielle Continue with Lasix 40mg daily. GI/DVT prophylaxis- per primary team planning cardiac cath in Jerry Matos MD Apr 24, 2017 19:09
[2017-04-24] MEDS: TAMSULOSIN HCL 0.4 MG CAP PO SCH (20:57)
[2017-04-25] VITALS (28 sets, daily range): BP systolic 125–181; BP diastolic 61–96; PULSE 76–125; RESP 17–33; TEMP 97.6–98.8; O2SAT 91–99
[2017-04-25] MEDS: methylPREDNISolone SOD SUCC 40 MG/1 ML VIAL IV PUSH SCH ×4 (00:52→18:04)
[2017-04-25] MEDS: RESP: ALBUTEROL 2.5 MG/IPRATROPIUM 0.5 MG NEB (SCH) NEB ×6 (03:55→23:15)
[2017-04-25] MEDS: CHLORHEXIDINE GLUCONATE 2 % 1 PACK (2 CLOTHS) TOP SCH (04:00)
[2017-04-25] MEDS: METHOCARBAMOL 500 MG TAB PO SCH ×3 (05:20→22:09)
[2017-04-25] MEDS: HEPARIN SODIUM - SQ 10,000 UNITS/ML VIAL SQ SCH (05:21)
[2017-04-25] MEDS: INSULIN NovoLIN REGULAR SUPPLEMENTAL SCALE SQ SCH ×4 (08:00→21:00)
[2017-04-25] MEDS: FAMOTIDINE 20 MG/2 ML VIAL IV PUSH SCH ×2 (08:28→22:09)
[2017-04-25] MEDS: DOCUSATE SODIUM 50 MG/SENNA 8.6 MG TAB PO SCH ×2 (08:28→22:09)
[2017-04-25] MEDS: guaiFENesin E.R. 600 MG TAB PO SCH ×2 (08:28→22:09)
[2017-04-25] MEDS: METOPROLOL TARTRATE 50 MG TAB PO SCH ×2 (08:28→22:09)
[2017-04-25] MEDS: THEOPHYLLINE 200 MG EXTENDED RELEASE CAP PO SCH (08:29)
[2017-04-25] MEDS: SODIUM CHLORIDE 0.9% FLUSH 10 ML FLUSH IV FLUSH SCH ×3 (08:29→22:10)
[2017-04-25] MEDS: BUDESONIDE-FORMOTEROL 80/4.5 MCG INHALER INH SCH ×2 (08:29→22:10)
[2017-04-25 08:48] LABS: HEMATOCRIT 42.9 % (39.0-51.0); HEMOGLOBIN 14.8 GM/DL (13.0-17.0); MEAN CELL VOLUME 98.9 FL (80.0-100.0); MEAN CORPUSCULAR HEMOGLOBIN 34.1 PG (27.0-34.0); MEAN CORPUSCULAR HGB CONC 34.5 % (32.0-36.0); MEAN PLATELET VOLUME 8.5 FL (7.0-11.0); PLATELET COUNT 145 TH/MM3 (150-450); RED BLOOD COUNT 4.34 MIL/MM3 (4.50-5.90); RED CELL DISTRIBUTION WIDTH 13.1 % (11.6-17.2); WHITE BLOOD COUNT 9.3 TH/MM3 (4.0-11.0)
[2017-04-25 08:53] LABS: INTERNATIONAL NORMALIZED RATIO 1.2 RATIO; PROTHROMBIN TIME - PATIENT 12.5 SEC (9.8-11.6)
[2017-04-25 09:08] LABS: BICARBONATE 44.6 MEQ/L (21.0-32.0); CALCIUM 9.2 MG/DL (8.5-10.1); CREATININE 0.64 MG/DL (0.60-1.30); MAGNESIUM 2.4 MG/DL (1.5-2.5)
[2017-04-25] MEDS: ASPIRIN EC 81 MG TABEC PO SCH (09:48)
--- NOTE | 2017-04-25 12:21 | HHI.CCPN ---
Subjective Remarks/Hospital Course 52 year old male who presents with a history of shortness of breath that began 2 days ago associated with a dry cough. The patient called ambulance services related to the shortness of breath and was noted to be saturating 92% on 2 L nasal cannula O2. The patient is normally on 2 L nasal cannula O2 continuously related to a history of COPD. The patient denies smoking currently. In the emergency department he has received the breathing treatment and IV steroids and was placed on BiPAP without any improvement. Continues to be severely hypoxemic patient was intubated by ED attending. Subjective: 04/18: Afebrile .The patient remains intubated and sedated. Maintaining oxygen saturation of 9697% on FiO2 40%. 04/19: The patient self extubated, O2 saturation in the 50's. Patient placed on nonrebreather mask 100% and then advance to BiPAP currently at 50%. She is alert and oriented following commands. O2 saturation now 97%. ABG pending. Will continue to wean. 1 extubation patient was noted to be, hypertensive extremely tachycardic heart rate in the 140s metoprolol initiated 2.5 mg every 6hrs . if tolerated will begin beta blockers (Metoprolol) PO, selective Beta 1. 04/20: Tmax 99.7. No acute events overnight. Patient remains on BiPAP 03/13.30% with O2 saturation 97%. The patient is tentatively scheduled for cardiac catheterization this a.m. Upon entering the room and performed physical examination and discussion with the patient, the patient requests to discuss with his senior interactive developer , prior to going for cardiac catheterization. 04/21: Afebrile . Patient denies chest pain .Cardiac catheterization canceled/ postponed yesterday, after consultation with Dr. Matos. Patient remains on BiPAP with FiO2 of 35%, O2 saturation 96%. Plan for initiation of high flow nasal cannula intermittently and resuming diet. 04/22: subjectively feels better and less dyspneic. remains o bipap. ct pulmonary angiogram without evidence of pe. per cardiology, will need [facility] before discharge. afebrile. 04/23: clinically feels subjectively better. denies sob or complaints. states he is hungry. sitting up in chair on high flow nc, 40% fio2. 04/24 Patient was placed on BIPAP overnight. Afebrile. 04/25: Resting in bed on nasal cannula. Dr. Vásquez planning cardiac catheterization. Objective Vital Signs Date Time Temp Pulse Resp B/P (MAP) Pulse Ox O2 Delivery O2 Flow Rate FiO2 04/25/17 10:00 82 04/25/17 08:03 94 Nasal Cannula 4.00 04/25/17 08:00 98.8 23 173/65 (101) 04/24/17 22:43 30 Intake and Output 04/25/17 04/25/17 04/26/17 08:00 16:00 00:00 Intake Total 482 ml Output Total 500 ml Balance -18 ml Result Diagram: 04/25/17 0715 04/25/17 0715 Imaging Last Impressions Chest X-Ray 04/24/17 0600 Signed Impressions: Service Date/Time: Monday, April 24, 2017 04:18 - CONCLUSION: Suspected right lower lobe consolidation or atelectasis. There is linear suspected atelectasis at the left lung. Michael Jackson MD CT Angiography 04/21/17 0000 Signed Impressions: Service Date/Time: Friday, April 21, 2017 13:29 - CONCLUSION: 1. No evidence of pulmonary embolism. 2. Air consolidation the right lung base concerning for pneumonia. 3. Underlying emphysema and apparent scarring. 4. Cirrhotic appearing liver. Hermes Polanco MD Objective Remarks GENERAL: obese male patient on nasal cannula 4 L/m SKIN: Warm and dry. HEAD: Normocephalic. evidence of skin breakdown on the bridge of the nose secondary to bipap use. EYES: No scleral icterus. No injection or drainage. NECK: Supple, trachea midline. large schmitz prevents accurate assessment of jvd. CARDIOVASCULAR: Regular rate and rhythm. Telemetry sinus rhythm RESPIRATORY: high flow nc. 35% fio2. unlabored. equal chest rise. severely diminished breath sounds throughout. GASTROINTESTINAL: Abdomen soft, protuberant, non-tender, nondistended. MUSCULOSKELETAL: No cyanosis, or edema. NEURO EXAM: GCS 15. RASS 0. Moving extremities 4, following commands A/P Assessment and Plan Assessment: 52yM with acute hypoxic and hypercarbic respiratory failure. Also with NSTEMI, likely type 2 and needs left heart cath evaluation prior to discharge. continue abx, supportive care. may alternate between high flow nc and bipap to maintain spo2 > 88%. defer to cardiology for timing of LHC. remain in ICU- high risk for decompensation. Neuro: Awake and alert, avoid sedatives Acute hypoxic and hypercarbic Respiratory failure COPD exacerbation RIGOBERTO - Continue with oxygen keep sat >92% - Continue IV steroids-Solumederol 40mg Q6 - DuoNeb scheduled and when necessary - Self extubation 04/19. off BIPAP, on nasal cannula currently. - Continue home meds -theophylline, Symbicort - Pulmonary is following- Dr. Matos GI - heart healthy diet as tolerated. -Bowel regimen Hypertension NSTEMI, type 2 secondary to demand ischemia - Monitor HR and BP keep MAP>65mmHg - Dr. Vásquez following - [id number] Q12 - Cardiac cath planned by Dr. Vásquez ID: Monitor for signs of infections ( Fever, WBC) Off abx(s/p Zosyn and Azithromycin course) cultures: NGTD BPH - Tamsulosin Monitor renal function, I/O's, electrolytes replacement per protocol. d/c Lasix Endo: - SSI with accuchecks to maintain Euglycemia Heme: Monitor CBC DVT GI prophylaxis - Teds SCDs - IV Pepcid [facility] Consult and transfer to hospitalist service for medical management. Level 2 Pedro Dowling MD Apr 25, 2017 12:21
[2017-04-25] MEDS ORDERED: HEPARIN-NS/PF INJ 500 ML ONE ×2 (13:21)
[2017-04-25] MEDS ORDERED: MISC INFORMATION XX ONE (14:00)
[2017-04-25] MEDS ORDERED: SODIUM CHLORIDE 0.9% FLUSH 10 ML FLUSH IV FLUSH PRN (14:00)
[2017-04-25] MEDS ORDERED: BACITRACIN OINT 0.9 GM PKT TOP ONE (14:15)
--- NOTE | 2017-04-25 14:20 | CATHPROC ---
[facility] HIS Report Study Information Study Number Admission Scheduled Start Study Start [id number] Apr 17 2017 11:46PM 04/25/2017 Apr 25 2017 12:51PM [place] Service Cardiac Catheterization Admit Source Facility Department Emergency department [facility] - Lawyer Physician and Clinical Staff Initial Gaston Carbajal Supervisor Front Lindsey Lozano BSN Recorder Shae Henriquez,RT(R) Scrub Hilario Lucero,RT(R) Procedures Performed Procedure Location (Site) Vessel Name Coronary Angiograms LCA Left Coronary Coronary Angiograms RCA Right Coronary LV Gram-hand inj. LV LV Ventricle Equipment Time Supervisor Fur Floor Worker Description Size Mfg Part Number Used/Scraped CATHETER, FR5 SWAN KB 13:32 [employer] FR 5 [id number] *[id number] Used MONITOR TRANSDUCER, TRUWAVE [id number] 13:32 ALBERT NICK * Used W/STOCKCOCK *[id number] [id number] *[id number] [id number] *[id number] 13:32 [employer] PACK, CCL CUSTOM * Used *[id number] 13:32 MEDLINE PACER PEN, SKIN DUAL W/ RULER * Used *[id number] 13:32 [employer] MEDICAL SHEATH, FR5.5 PRELUDE 11CM FR 5.5 Used 038ACT# [id number] 13:32 [employer] MEDICAL WIRE, 3MMJ .035 180CM 180CM Used *[id number] 13:32 NAMIC MANIFOLD, 4 PORT * Used *[id number] 13:32 [employer] OMNIPAQUE, 350 MG, 150ML 150ML [id number] Used [id number] 13:32 [employer],WARM AIR CCL * Used *[id number] 13:32 [employer] MEDICAL SHEATH, FR4 TERUMO (10CM) FR 4 Used *[id number] History: Current Medications Medication Dosage/Unit Route Frequency Last Date/Time Taken LASIX K-Dur Albuterol LOVENOX History: Allergies Allergy Reaction No Known Allergies History: Risk Factors Family History of Hypertension Dyslipidemia Previous NC Previous Heart Failure Premature CAD Yes No Yes No No Prior Valve Prior PCI Prior CABG Surgery No No No Cerebrovascular Peripheral Artery Chronic Lung On Dialysis Diabetes Disease Disease Disease No No No Yes No History: Symptoms/Diagnosis Selection Items SOB History: Stress Tests Stress or Imaging Studies Performed No History: Other Current Smoker Method Quit Packs a Day Years Used Pack Years No Cigarettes 15 Years Ago 2 25 50 Labs Hgb (g/dl) Hct (%) WBC (l/cumm) Platelets (thousands) 11.60-17.00 35.00-51.00 4.00-11.00 150.00-450.00 14.8 42.9 9.3 145 Glucose (mg/dl) BUN (mg/dl) Creatinine (mg/dl) BUN:Creatinine (1:x) 74.00-106.00 7.00-18.00 0.50-1.30 10.00-20.00 136 21 0.6 35 Na (meq/l) K (meq/l) 136.00-145.00 3.50-5.10 142 3.8 INR (PTT:PT) 0.90-1.10 1.2 Troponin I (ng/ml) CPK-MB (ng/ML) 0.02-0.05 0.50-3.60 1.17 Not Drawn Medication Medication Total Dose (Bolus/Oral) Medication Total Dosage/Unit 1% XYLOCAINE 20 mL Medications (Bolus/Oral) Medication Time Given Dosage/Unit Administered By Reason 1% XYLOCAINE 04/25/2017 1:38:28 PM 20 mL Gaston Vásquez 20 mL 1% XYLOCAINE given in lab by Gaston Vásquez in Right Groin via Subcutaneous. Ordered by Gaston Baez. Medication (Drip) Medication Time Given Dosage/Unit Concentration/Unit Diluent (ml) Solution IV Solutions 04/25/2017 1:17:46 PM 0 mL (IV) 500 NaCl .9 Patient arrived on IV Solutions in Right Forearm via Peripheral IV. Pump/Drip Flow = 20 ml/hr using N aCl .9. Initial Case Assessment Cardiovascular HR Rhythm NIBP Chest Pain 87 sr 143/90 0 Circulatory - Right Pulses Dorsalis Pedis Femoral d 2 Scale (0,1,2,3,4,d) Circulatory - Left Pulses Dorsalis Pedis Femoral d 2 Scale (0,1,2,3,4,d) Neurological State Oriented to time-place- Alert Moves all extremities person Respiration - General Respiration Rate SpO2 (%) O2 (lpm) (B/min) 18 99 4 Final Case Assessment Cardiovascular HR Rhythm NIBP Chest Pain 93 sr 151/92 0 Circulatory - Right Pulses Dorsalis Pedis Femoral d 2 Scale (0,1,2,3,4,d) Circulatory - Left Pulses Dorsalis Pedis Femoral d 2 Scale (0,1,2,3,4,d) Neurological State Oriented to time-place- Alert Moves all extremities person Respiration - General Respiration Rate SpO2 (%) O2 (lpm) (B/min) 19 96 4 Chronological Log Time Study Chronological Log 13:16:00 Patient arrived via Bed. 13:16:05 Patient Name, D.O.B, / Armband Verified By R.N. 13:17:12 Consent signed by the physician and the patient and verified by the Lawyer staff. 13:17:13 Pre-op and post- op instructions given; patient acknowledges understanding of instructions. 13:17:16 Verbal Stimulation=2 Physical Stimulation=2 Airway=2 Respiration=2 TOTAL=8. (0=absent, 1=li mited, 2=present) 13:17:34 Presedation assessment performed by Lawyer RN. 13:17:36 Patient has been NPO for More than 6Hrs. 13:17:37 Skin Breakdown-none 13:17:39 Flo Prominences Protected 13:17:42 A # 20 IV was noted in the Forearm (right). Grade = 0 13:17:46 Patient arrived on IV Solutions in Right Forearm via Peripheral IV. Pump/Drip Flow = 20 ml/ hr using NaCl .9. 13:17:51 History and physical on the chart or being dictated. Vitals capture started with the following parameters, Patient=Adult, Interval=5 min, Initial Pr jtonyh=141 mmHg, 13:24:44 Deflation Rate=5 mmHg, Cuff placed on Left Arm 13:25:20 HR=89 bpm, SPVI=724/90 mmhg, SpO2=98.0 %, Resp=17 B/min, Pain=0, Baumann=2 Assessment: Initial Case, HR=87 BPM, Rhythm=sr, WNFF=849/90 mmhg, Chest Pain=0 Right Pulses: Marvin Ped=d, Femoral=2 13:26:43 Left Pulses: Marvin Ped=d, Femoral=2 Neurological: State=Alert, Ox3, POSADA Respiration: Resp=18 B/min, SpO2=99 %, O2=4 lpm 13:29:20 Bilateral groins prepped with 2% chlorhexidine, and draped after a 3 minute waiting time. 13:30:21 HR=90 bpm, FLXW=578/88 mmhg, SpO2=99.0 %, Resp=16 B/min 13:31:15 MD arrived. 13:35:24 HR=87 bpm, DQJG=213/89 mmhg, SpO2=97.0 %, Resp=13 B/min 13:36:07 Pressure channel 1 zeroed. Time Out. Correct patient, correct procedure, correct physician, power injector not loaded with contrast with surgical 13:37:11 team present. Time Out Concurred by MD and individual staff in procedure. 13:38:26 Case Start 20 mL 1% XYLOCAINE given in lab by Gaston Vásquez in Right Groin via Subcutaneous. Ordered by Fahad, 13:38:28 Gaston. 13:39:28 Access site was Right Femoral Artery. 13:39:37 A SHEATH, FR4 TERUMO (10CM) FR 4 was advanced into the Fem Art (right) using the Percutaneo us technique. 13:40:23 HR=90 bpm, YTIY=548/96 mmhg, SpO2=97.0 %, Resp=17 B/min 13:40:26 Saturation: Site=Ao (Aorta) , O2=96.5 %, Hgb=14.8 gm/dl, Condition=Condition 1. Used in teresa culation. 13:41:02 Access site was Right Femoral Vein. 13:41:22 A SHEATH, FR5.5 PRELUDE 11CM FR 5.5 was advanced into the Fem Vein (right) using the Percut aneous technique. 13:41:31 A CATHETER, FR5 SWAN KB MONITOR FR 5 was inserted via Fem Vein (right) 13:41:51 Reference ECG taken Recorded Pressure: PCW, HR=92, Condition=Condition 1 13:42:36 (Pulmonary Capillary Wedge) PCW 1813 Recorded Pressure: MPA, HR=92, Condition=Condition 1 13:42:52 (Main Pulmonary Artery) MPA 46/21/33 13:43:21 Saturation: Site=PA (Pulmonary Artery) , O2=79.7 %, Hgb=14.8 gm/dl, Condition=Condition 1. Used in calculation. Recorded Pressure: RV, HR=90, Condition=Condition 1 13:43:39 (Right Ventricle) RV 46/8/12 Recorded Pressure: RA, HR=92, Condition=Condition 1 13:43:50 (Right Atrium) RA 13:44:20 Saturation: Site=RA (Right Atrium) , O2=80.6 %, Hgb=14.8 gm/dl, Condition=Condition 1. Used in calculation. 13:44:38 Byron Kb Catheter Removed 13:45:24 HR=90 bpm, BPCH=118/91 mmhg, SpO2=98.0 %, Resp=17 B/min A JR 4.0 INFINITI CATHETER FR 4 was advanced over a wire. OMNIPAQUE, 350 MG, 150ML 150ML was us ed for 13:45:34 injections. Recorded Pressure: LV, FS=883, Condition=Condition 1 13:46:12 (Left Ventricle) LV 138/6/16 13:46:20 The LV was manually injected with 10 cc's and visualized. OMNIPAQUE, 350 MG, 150ML 150ML us ed. 13:47:06 The RCA was injected and visualized at various angles. OMNIPAQUE, 350 MG, 150ML 150ML used . Recorded Pressure: Ao, HR=95, Condition=Condition 1 13:47:21 (Aorta) Ao 140/81/109 13:48:42 Catheter was removed A JL 4.0 INFINITI CATHETER FR 4 was advanced over a wire. OMNIPAQUE, 350 MG, 150ML 150ML was us ed for 13:48:42 injections. 13:48:57 The LCA was injected and visualized at various angles. OMNIPAQUE, 350 MG, 150ML 150ML used . Recorded Pressure: Ao, HR=90, Condition=Condition 1 13:49:12 (Aorta) Ao 148/82/111 13:49:45 Catheter was removed 13:49:46 Case End 13:50:29 HR=93 bpm, JLWR=822/93 mmhg, SpO2=97.0 %, Resp=16 B/min 13:50:49 Arterial Sheath removed; pressure applied to access site. 13:55:28 HR=84 bpm, QIZZ=095/90 mmhg, SpO2=97.0 %, Resp=17 B/min 13:58:19 Venous Sheath removed; pressure applied to access site. 14:00:29 HR=93 bpm, RDBY=030/92 mmhg, SpO2=96.0 %, Resp=19 B/min Assessment: Final Case, HR=93 BPM, Rhythm=sr, MYUN=821/92 mmhg, Chest Pain=0 Right Pulses: Marvin Ped=d, Femoral=2 14:00:58 Left Pulses: Marvin Ped=d, Femoral=2 Neurological: State=Alert, Ox3, POSADA Respiration: Resp=19 B/min, SpO2=96 %, O2=4 lpm 14:04:19 Sterile dressing applied to site 14:04:22 Cine recording checked. 14:04:23 Bedside Report will be given. 14:04:53 Vitals capture stopped. 14:05:53 Patient moved to bed. 14:10:09 Patient transported to [facility] End Study - Contrast Media Used In Study Contrast Total Opened (mL) Total Used (mL) Total Wasted (mL) Omnipaque 45 45 0 End Study - Maximum Contrast Load Max Contrast Load (mL) 617.4 End Study - Radiation Exposure Fluoro Time (minutes) 1.7 End Study - Sheaths Sheaths Pulled By Sheath Hold Time (min) Hilario Lucero End Study - Patient Disposition Complications Transferred To Interventional Outcome No Critical Care Bed No attempt made
[2017-04-25] MEDS ORDERED: IOHEXOL 350 MG/ML 50 ML BTL (for Cath Lab) OTHER ONE (15:06)
[2017-04-25] MEDS: METOPROLOL TARTRATE 5 MG/5 ML VIAL IV PUSH PRN (15:27)
--- NOTE | 2017-04-25 18:25 | HHI.PR ---
Subjective Remarks Patient is on BIPAP18/5 wih 35% FIO2. CT chest yesterday showed no PE, right basilar pneumonia. Patient is awake and alert. Afebrile Used BIPAP Weaned to 4LNC Up on the side of bed. Had cardiac cath Objective Vital Signs Vital Signs Date Time Temp Pulse Resp B/P (MAP) Pulse Ox O2 Delivery O2 Flow Rate FiO2 04/25/17 17:31 112 29 169/83 (111) 92 04/25/17 17:00 112 27 180/88 (118) 92 04/25/17 17:00 112 27 180/88 (118) 92 04/25/17 17:00 112 04/25/17 16:30 104 20 148/83 (104) 95 04/25/17 16:00 97.6 104 29 138/80 (99) 92 04/25/17 16:00 104 04/25/17 16:00 104 29 138/80 (99) 92 04/25/17 15:30 101 22 169/73 (105) 96 04/25/17 15:15 98 22 180/81 (114) 99 04/25/17 15:00 95 04/25/17 15:00 95 18 168/73 (104) 96 04/25/17 14:45 97 23 181/88 (119) 92 04/25/17 14:30 88 22 159/80 (106) 97 04/25/17 14:30 88 04/25/17 14:30 88 22 159/80 (106) 97 04/25/17 14:18 91 04/25/17 14:18 91 25 167/81 (109) 93 04/25/17 14:18 91 25 167/81 (109) 93 04/25/17 13:00 96 04/25/17 12:00 87 04/25/17 12:00 98.3 87 18 162/86 (111) 98 04/25/17 11:00 84 04/25/17 11:00 84 27 168/87 (114) 96 04/25/17 10:00 82 19 125/61 (82) 98 04/25/17 10:00 82 04/25/17 09:00 85 17 157/77 (103) 92 04/25/17 09:00 85 04/25/17 08:03 94 Nasal Cannula 4.00 04/25/17 08:00 96 04/25/17 08:00 98.8 92 23 173/65 (101) 94 04/25/17 08:00 98 Nasal Cannula 4.00 04/25/17 07:00 89 33 158/75 (102) 95 04/25/17 06:00 93 04/25/17 04:00 86 04/25/17 04:00 97.9 86 23 149/75 (99) 98 04/25/17 02:00 87 04/25/17 00:55 92 Nasal Cannula 6.00 04/25/17 00:00 97.9 76 30 143/76 (98) 94 04/25/17 00:00 76 04/24/17 22:43 94 Bi-Pap 30 04/24/17 22:39 93 30 04/24/17 22:00 101 04/24/17 20:00 99.1 105 35 163/82 (109) 96 04/24/17 20:00 105 04/24/17 19:29 97 Nasal Cannula 4.00 04/24/17 19:00 96 Nasal Cannula 6.00 I/O 04/24/17 04/24/17 04/24/17 04/25/17 04/25/17 04/25/17 07:00 15:00 23:00 07:00 15:00 23:00 Intake Total 100 ml 500 ml 482 ml Output Total 1700 ml 1780 ml 500 ml Balance -1600 ml -1280 ml -18 ml Intake Oral 500 ml 482 ml IV Total 100 ml Output Urine Total 1700 ml 1780 ml 500 ml # Bowel Movements 2 Result Diagram: 04/25/1771404/25/17714 Objective Remarks GENERAL: Patient is 52 yo on BIPAP SKIN: Warm and dry. HEAD: Normocephalic. EYES: No scleral icterus. No injection or drainage. NECK: Supple, trachea midline. No JVD or lymphadenopathy. CARDIOVASCULAR: Regular rate and rhythm without murmurs, gallops, or rubs. RESPIRATORY: Breath sounds equal bilaterally. Few coarse BS GASTROINTESTINAL: Abdomen soft, non-tender, nondistended. MUSCULOSKELETAL: No cyanosis, or edema. BACK: Nontender without obvious deformity. No CVA tenderness. Neuro: Awake and alert A/P Assessment and Plan 1)Acute hypercapnic and hypoxic resp failure 2)COPD 3) Right basilar pneumonia 4) Obstructive sleep apnea 5)NSTEMI 6)HTN PLAN Continue with oxygen keep sat >92% Bronchodilators ( Duoneb, Symbicort), IS. On Theodur 400mg daily BIPAP PRN during day and nocturnally qhs Continue with abx ( Zosyn, Zithromax), sputum 1/0: normal resp marielle Continue with Lasix 40mg daily. GI/DVT prophylaxis- per primary team DC Solumedrol Prednisone 10 mg tid Jerry Matos MD Apr 25, 2017 18:25
[2017-04-25] MEDS: TAMSULOSIN HCL 0.4 MG CAP PO SCH (22:10)
[2017-04-26] VITALS (20 sets, daily range): BP systolic 137–178; BP diastolic 59–89; PULSE 77–103; RESP 16–35; TEMP 97.2–98.5; O2SAT 91–98
[2017-04-26] MEDS: RESP: ALBUTEROL 2.5 MG/IPRATROPIUM 0.5 MG NEB (SCH) NEB ×3 (03:46→11:35)
[2017-04-26] MEDS: CHLORHEXIDINE GLUCONATE 2 % 1 PACK (2 CLOTHS) TOP SCH (04:00)
[2017-04-26] MEDS: METHOCARBAMOL 500 MG TAB PO SCH ×3 (06:04→22:31)
[2017-04-26 06:24] LABS: AUTOMATED NEUTROPHIL # 7.9 TH/MM3 (1.8-7.7); BASOPHIL % 0.2 % (0.0-2.0); HEMATOCRIT 44.3 % (39.0-51.0); HEMOGLOBIN 15.1 GM/DL (13.0-17.0); LYMPH % 11.2 % (9.0-44.0); LYMPHOCYTE # 1.2 TH/MM3 (1.0-4.8); MEAN CELL VOLUME 100.3 FL (80.0-100.0); MEAN CORPUSCULAR HEMOGLOBIN 34.2 PG (27.0-34.0); MEAN PLATELET VOLUME 8.6 FL (7.0-11.0); MONO % 12.4 % (0.0-8.0); MONOCYTE # 1.3 TH/MM3 (0-0.9); NEUT % 76.2 % (16.0-70.0); PLATELET COUNT 159 TH/MM3 (150-450); RED BLOOD COUNT 4.42 MIL/MM3 (4.50-5.90); RED CELL DISTRIBUTION WIDTH 13.3 % (11.6-17.2); WHITE BLOOD COUNT 10.4 TH/MM3 (4.0-11.0)
[2017-04-26 06:49] LABS: BLOOD UREA NITROGEN 24 MG/DL (7-18); CALCIUM 9.2 MG/DL (8.5-10.1); CHLORIDE 97 MEQ/L (98-107); CREATININE 0.55 MG/DL (0.60-1.30); GLOMERULAR FILTRATION RATE 155 ML/MIN (>89); GLUCOSE,RANDOM 115 MG/DL (74-106); SODIUM (NA) 143 MEQ/L (136-145)
[2017-04-26 06:55] LABS: BICARBONATE GREATER THAN 45.0 MEQ/L (21.0-32.0)
[2017-04-26] MEDS: FAMOTIDINE 20 MG/2 ML VIAL IV PUSH SCH ×2 (07:33→20:27)
[2017-04-26] MEDS: guaiFENesin E.R. 600 MG TAB PO SCH ×2 (07:34→20:23)
[2017-04-26] MEDS: SODIUM CHLORIDE 0.9% FLUSH 10 ML FLUSH IV FLUSH SCH ×4 (07:34→20:23)
[2017-04-26] MEDS: THEOPHYLLINE 200 MG EXTENDED RELEASE CAP PO SCH (07:34)
[2017-04-26] MEDS: ASPIRIN EC 81 MG TABEC PO SCH (07:34)
[2017-04-26] MEDS: METOPROLOL TARTRATE 50 MG TAB PO SCH ×2 (07:34→20:24)
[2017-04-26] MEDS: BUDESONIDE-FORMOTEROL 80/4.5 MCG INHALER INH SCH ×2 (07:35→20:22)
[2017-04-26] MEDS: DOCUSATE SODIUM 50 MG/SENNA 8.6 MG TAB PO SCH ×2 (07:35→20:24)
[2017-04-26] MEDS: predniSONE 10 MG TAB PO SCH ×3 (07:37→19:06)
[2017-04-26] MEDS: INSULIN NovoLIN REGULAR SUPPLEMENTAL SCALE SQ SCH ×4 (07:40→20:27)
--- NOTE | 2017-04-26 09:09 | MA ---
cc: DEANDRE RESENDIZ M.D. DATE 04/26/2017 PROCEDURE PERFORMED A right heart catheterization, left heart catheterization, left ventriculography, coronary angiography. INDICATIONS Non-STEMI, anginal equivalent, CHF, dyspnea, [place] Cardiovascular Society class IV angina, [place] Heart Association class IV congestive heart failure. PROCEDURE NOTE The patient was brought to the cardiac catheterization laboratory, prepped and draped in the usual sterile fashion. 10 ccs of 1% lidocaine was used to locally anesthetize the right common femoral artery. A Chinese sheath placed in the right common femoral artery. A 5-Chinese sheath placed in the right common femoral vein. Right heart catheterization was performed first with the following findings: Pulmonary capillary wedge pressure 80/30-13. PA pressure 46/21-33. RV pressure 46/8-12. RA pressure 13/12-9 On four liters, cardiac output was 6.7 liters per minute. Cardiac index 3.7 liters per meter squared per minute. SVR 1202. FA sat was 96.5%. PA sat 79.7%. RA sat 80.6%. Left heart catheterization was then performed with a 4-Chinese JR-4, JL-4 catheter with the following findings: LV pressures 140/10-12. Ejection fraction is 60%. The right coronary artery is large and dominant. There is no significant obstructive disease. The left main coronary artery has no significant disease angiographically. Actually, there are two ramus intermedius vessels versus one with an ostial bifurcation. The more medial of the two is actually a large vessel probably 3.5 mm in diameter with no significant obstructive disease. The more lateral of the two is a small vessel reference vessel with a diameter of 2.5-2.75 with ostial 30-40% stenosis. Left circumflex vessel has mild disease in its mid segment up to 10-20% angiographically. It gives rise to a small obtuse marginal vessel with no significant obstructive disease. The LAD is transapical and has no significant obstructive disease. The first, second, and third diagonal arteries come up from the [id number] LAD and are small 1 mm reference vessel diameter vessels with no significant disease angiographically. CONCLUSION 1. Angiographically mild two-vessel coronary artery disease in a right-dominant system. 2. Moderate pulmonary hypertension. 3. Mildly elevated wedge pressures suggesting the possibility of primary pulmonary hypertension. 4. Normal LV systolic function ejection fraction 60%. 5. Normal LV pressures 140/10-12. RECOMMENDATIONS Recommend medical management of coronary artery disease, cardiac risk factor modification. MD DUANE Cao/LUKASZ /1:55 PM /8:47 AM
--- NOTE | 2017-04-26 12:07 | HHI.CCPN ---
Subjective Remarks/Hospital Course 52 year old male who presents with a history of shortness of breath that began 2 days ago associated with a dry cough. The patient called ambulance services related to the shortness of breath and was noted to be saturating 92% on 2 L nasal cannula O2. The patient is normally on 2 L nasal cannula O2 continuously related to a history of COPD. The patient denies smoking currently. In the emergency department he has received the breathing treatment and IV steroids and was placed on BiPAP without any improvement. Continues to be severely hypoxemic patient was intubated by ED attending. Subjective: 04/18: Afebrile .The patient remains intubated and sedated. Maintaining oxygen saturation of 9697% on FiO2 40%. 04/19: The patient self extubated, O2 saturation in the 50's. Patient placed on nonrebreather mask 100% and then advance to BiPAP currently at 50%. She is alert and oriented following commands. O2 saturation now 97%. ABG pending. Will continue to wean. 1 extubation patient was noted to be, hypertensive extremely tachycardic heart rate in the 140s metoprolol initiated 2.5 mg every 6hrs . if tolerated will begin beta blockers (Metoprolol) PO, selective Beta 1. 04/20: Tmax 99.7. No acute events overnight. Patient remains on BiPAP 03/13.30% with O2 saturation 97%. The patient is tentatively scheduled for cardiac catheterization this a.m. 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 04/21: Afebrile . Patient denies chest pain .Cardiac catheterization canceled/ postponed yesterday, after consultation with Dr. Matos. Patient remains on BiPAP with FiO2 of 35%, O2 saturation 96%. Plan for initiation of high flow nasal cannula intermittently and resuming diet. 04/22: subjectively feels better and less dyspneic. remains o bipap. ct pulmonary angiogram without evidence of pe. per cardiology, will need [facility] before discharge. afebrile. 04/23: clinically feels subjectively better. denies sob or complaints. states he is hungry. sitting up in chair on high flow nc, 40% fio2. 04/24 Patient was placed on BIPAP overnight. Afebrile. 04/25: Resting in bed on nasal cannula. Dr. Vásquez planning cardiac catheterization. 04/26 No events overnight. On 3L oxygen with good sats. Afebrile. Objective Vital Signs Date Time Temp Pulse Resp B/P (MAP) Pulse Ox O2 Delivery O2 Flow Rate FiO2 04/26/17 11:36 91 Nasal Cannula 3.00 04/26/17 09:00 83 28 137/59 (85) 04/26/17 08:00 97.6 04/25/17 23:25 40 Intake and Output 04/26/17 04/26/17 04/27/17 08:00 16:00 00:00 Intake Total 360 ml Output Total 850 ml Balance -490 ml Result Diagram: 04/26/17 0554 04/26/17 0554 Other Results Laboratory Tests Test 04/26/17 05:54 White Blood Count 10.4 TH/MM3 Red Blood Count 4.42 MIL/MM3 Hemoglobin 15.1 GM/DL Hematocrit 44.3 % Mean Corpuscular Volume 100.3 FL Mean Corpuscular Hemoglobin 34.2 PG Mean Corpuscular Hemoglobin Concent 34.0 % Red Cell Distribution Width 13.3 % Platelet Count 159 TH/MM3 Mean Platelet Volume 8.6 FL Neutrophils (%) (Auto) 76.2 % Lymphocytes (%) (Auto) 11.2 % Monocytes (%) (Auto) 12.4 % Eosinophils (%) (Auto) 0.0 % Basophils (%) (Auto) 0.2 % Neutrophils # (Auto) 7.9 TH/MM3 Lymphocytes # (Auto) 1.2 TH/MM3 Monocytes # (Auto) 1.3 TH/MM3 Eosinophils # (Auto) 0.0 TH/MM3 Basophils # (Auto) 0.0 TH/MM3 CBC Comment DIFF FINAL Differential Comment Blood Urea Nitrogen 24 MG/DL Creatinine 0.55 MG/DL Random Glucose 115 MG/DL Calcium Level 9.2 MG/DL Sodium Level 143 MEQ/L Potassium Level 4.1 MEQ/L Chloride Level 97 MEQ/L Carbon Dioxide Level GREATER THAN 45.0 MEQ/L Anion Gap 1 MEQ/L Estimat Glomerular Filtration Rate 155 ML/MIN Imaging Last Impressions Chest X-Ray 04/24/17 0600 Signed Impressions: Service Date/Time: Monday, April 24, 2017 04:18 - CONCLUSION: Suspected right lower lobe consolidation or atelectasis. There is linear suspected atelectasis at the left lung. Michael Jackson MD CT Angiography 04/21/17 0000 Signed Impressions: Service Date/Time: Friday, April 21, 2017 13:29 - CONCLUSION: 1. No evidence of pulmonary embolism. 2. Air consolidation the right lung base concerning for pneumonia. 3. Underlying emphysema and apparent scarring. 4. Cirrhotic appearing liver. Hermes Polanco MD Objective Remarks GENERAL: obese male patient lying in bed in NAD SKIN: Warm and dry. HEAD: Normocephalic. evidence of skin breakdown on the bridge of the nose secondary to bipap use. EYES: No scleral icterus. No injection or drainage. NECK: Supple, trachea midline. large schmitz prevents accurate assessment of jvd. CARDIOVASCULAR: Regular rate and rhythm. Telemetry sinus rhythm RESPIRATORY: high flow nc. 35% fio2. unlabored. equal chest rise. severely diminished breath sounds throughout. GASTROINTESTINAL: Abdomen soft, protuberant, non-tender, nondistended. MUSCULOSKELETAL: No cyanosis, or edema. NEURO EXAM: GCS 15. RASS 0. Moving extremities 4, following commands A/P Assessment and Plan Neuro: Awake and alert, avoid sedatives Acute hypoxic and hypercarbic Respiratory failure COPD exacerbation RIGOBERTO - Continue with oxygen keep sat >92% - Continue Prednisone 10mg TID. Give Diamox 250mg IV x1 - DuoNeb scheduled and when necessary - Self extubation 04/19. off BIPAP, on nasal cannula currently. - Continue home meds -theophylline, Symbicort - Pulmonary is following- Dr. Matos GI - heart healthy diet as tolerated. -Bowel regimen Hypertension NSTEMI, type 2 secondary to demand ischemia - Monitor HR and BP keep MAP>65mmHg - Dr. Vásquez following - [id number] Q12 - s/p cardiac cath by Dr. Vásquez: 2V mild disease, EF 60% ID: Monitor for signs of infections ( Fever, WBC) Off abx(s/p Zosyn and Azithromycin course) cultures: NGTD BPH - Tamsulosin Monitor renal function, I/O's, electrolytes replacement per protocol. Endo: - SSI with accuchecks to maintain Euglycemia Heme: Monitor CBC DVT GI prophylaxis - Teds SCDs - IV Pepcid SQH Awaiting transfer to floor Level 2 Elio Buchanan MD Apr 26, 2017 12:07
--- NOTE | 2017-04-26 15:07 | HHI.PR ---
Subjective Remarks Patient is on timothy cannula. Patient is awake and alert. Afebrile Used BIPAP briefly Weaned to 4LNC Up on the side of bed. Had cardiac cath Gets sob on sitting on the side of bed Objective Vital Signs Vital Signs Date Time Temp Pulse Resp B/P (MAP) Pulse Ox O2 Delivery O2 Flow Rate FiO2 04/26/17 14:00 96 04/26/17 13:00 103 04/26/17 12:00 86 04/26/17 12:00 97.7 82 35 158/77 (104) 91 04/26/17 11:36 91 Nasal Cannula 3.00 04/26/17 11:00 78 04/26/17 10:00 77 04/26/17 09:00 83 28 137/59 (85) 04/26/17 09:00 81 04/26/17 08:00 87 04/26/17 08:00 98 Nasal Cannula 3.00 04/26/17 08:00 97.6 87 20 178/84 (115) 94 04/26/17 07:57 98 Nasal Cannula 2.00 04/26/17 07:00 79 18 174/79 (110) 96 04/26/17 06:00 86 04/26/17 04:00 98.2 84 22 167/85 (112) 95 04/26/17 04:00 85 04/26/17 03:50 95 Nasal Cannula 4.00 04/26/17 02:00 84 04/26/17 00:00 98 04/26/17 00:00 98.0 87 22 154/73 (100) 94 04/25/17 23:25 97 BiPAP 40 04/25/17 23:16 96 40 04/25/17 22:00 109 04/25/17 20:00 97.9 102 23 170/80 (110) 91 04/25/17 20:00 102 04/25/17 19:22 94 30 04/25/17 19:00 Bi-Pap 30 04/25/17 18:00 118 19 164/96 (118) 04/25/17 18:00 125 04/25/17 17:31 112 29 169/83 (111) 92 04/25/17 17:00 112 27 180/88 (118) 92 04/25/17 17:00 112 27 180/88 (118) 92 04/25/17 17:00 112 1/17/18 16:30 104 20 148/83 (104) 95 04/25/17 16:00 97.6 104 29 138/80 (99) 92 04/25/17 16:00 104 04/25/17 16:00 104 29 138/80 (99) 92 04/25/17 15:30 101 22 169/73 (105) 96 04/25/17 15:15 98 22 180/81 (114) 99 I/O 04/25/17 04/25/17 04/25/17 04/26/17 04/26/17 04/26/17 07:00 15:00 23:00 07:00 15:00 23:00 Intake Total 482 ml 660 ml 360 ml Output Total 500 ml 725 ml 850 ml Balance -18 ml -65 ml -490 ml Intake Oral 482 ml 660 ml 360 ml Output Urine Total 500 ml 725 ml 850 ml # Voids 3 # Bowel Movements 1 0 Result Diagram: 04/26/17 0554 04/26/17 0554 Objective Remarks GENERAL: Patient is 52 yo on BIPAP SKIN: Warm and dry. HEAD: Normocephalic. EYES: No scleral icterus. No injection or drainage. NECK: Supple, trachea midline. No JVD or lymphadenopathy. CARDIOVASCULAR: Regular rate and rhythm without murmurs, gallops, or rubs. RESPIRATORY: Breath sounds equal bilaterally. Few coarse BS GASTROINTESTINAL: Abdomen soft, non-tender, nondistended. MUSCULOSKELETAL: No cyanosis, or edema. BACK: Nontender without obvious deformity. No CVA tenderness. Neuro: Awake and alert A/P Assessment and Plan 1)Acute hypercapnic and hypoxic resp failure 2)COPD 3) Right basilar pneumonia 4) Obstructive sleep apnea 5)NSTEMI 6)HTN PLAN Continue with oxygen keep sat >92% Bronchodilators ( Duoneb, Symbicort), IS. On Theodur 400mg daily BIPAP PRN during day and nocturnally qhs Continue with abx ( Zosyn, Zithromax), sputum 1/0: normal resp marielle Continue with Lasix 40mg daily. GI/DVT prophylaxis- per primary team Prednisone 10 mg tid Pt's friend will bring pt's CPAP machine to use here Jerry Matos MD Apr 26, 2017 15:07
--- NOTE | 2017-04-26 16:10 | PD.CARD.PN ---
Subjective Subjective Remarks denies chest pain, in nad, intermittently still on bipap Objective Medications Current Medications Medications (Trade) Dose Ordered Sig/[place]ell Route Start Time Stop Time Status Last Admin (Symbicort 80-4.5 Mcg Inh) 1 puff Q12HR INH 04/18/17 09:00 04/26/17 07:35 (Robaxin) 500 mg Q8HR PO 04/18/17 06:00 04/26/17 12:49 (Flomax) 0.4 mg HS PO 04/18/17 21:00 04/25/17 22:10 (Dakota-24) 400 mg DAILY PO 04/18/17 09:00 04/26/17 07:34 (Mucinex Er) 600 mg BID PO 04/18/17 09:00 04/26/17 07:34 (NS Flush) 2 ml UNSCH PRN IV FLUSH 04/18/17 00:30 (NS Flush) 2 ml BID IV FLUSH 04/18/17 09:00 04/26/17 07:34 (Tylenol) 650 mg Q6H PRN PO 04/18/17 00:30 04/24/17 01:09 (Pepcid Inj) 20 mg Q12HR IV PUSH 04/18/17 09:00 04/26/17 07:33 (Zofran Inj) 4 mg Q6H PRN IV PUSH 04/18/17 00:30 (Duoneb Neb) 1 ampule Q2HR NEB PRN INH 04/18/17 00:30 04/21/17 14:00 Miscellaneous Information 1 Q361D XX 04/18/17 00:30 04/18/17 00:30 (Chlorhexidine 2% Cloth) Taper DAILY@04 TOP 04/18/17 04:00 04/14/18 03:59 04/24/17 04:00 (Chlorhexidine 2% Cloth) 3 pack UNSCH PRN TOP 04/18/17 00:30 (Edna-Colace) 1 tab BID PO 04/18/17 09:00 04/25/17 22:09 (Milk Of Magnesia Liq) 30 ml Q12H PRN PO 04/18/17 00:30 (Senokot) 17.2 mg Q12H PRN PO 04/18/17 00:30 (Dulcolax Supp) 10 mg DAILY PRN RECTAL 04/18/17 00:30 (Lactulose Liq) 30 ml DAILY PRN PO 04/18/17 00:30 (D50w (Vial) Inj) 50 ml UNSCH PRN IV PUSH 04/18/17 00:45 (Glucagon Inj) 1 mg UNSCH PRN OTHER 04/18/17 00:45 (NovoLIN R SUPPLEMENTAL SCALE) 1 ACHS SLIDING SCALE SQ 04/18/17 08:00 04/26/17 12:50 (Ecotrin Ec) 81 mg DAILY PO 04/19/17 09:00 04/26/17 07:34 (Lopressor Inj) 2.5 mg Q6H PRN IV PUSH 04/19/17 09:15 04/25/17 15:27 (Lopressor) 25 mg Q12HR PO 04/24/17 09:00 04/26/17 07:34 (NS Flush) 2 ml BID IV FLUSH 04/25/17 21:00 (NS Flush) 2 ml UNSCH PRN IV FLUSH 04/25/17 14:00 (Deltasone) 10 mg TID PO 04/26/17 09:00 04/26/17 12:49 Vital Signs / I&O Vital Signs Date Time Temp Pulse Resp B/P (MAP) Pulse Ox O2 Delivery O2 Flow Rate FiO2 04/26/17 14:00 96 04/26/17 13:00 103 04/26/17 12:00 86 04/26/17 12:00 97.7 82 35 158/77 (104) 91 04/26/17 11:36 91 Nasal Cannula 3.00 04/26/17 11:00 78 04/26/17 10:00 77 04/26/17 09:00 83 28 137/59 (85) 04/26/17 09:00 81 04/26/17 08:00 87 04/26/17 08:00 98 Nasal Cannula 3.00 04/26/17 08:00 97.6 87 20 178/84 (115) 94 04/26/17 07:57 98 Nasal Cannula 2.00 04/26/17 07:00 79 18 174/79 (110) 96 04/26/17 06:00 86 04/26/17 04:00 98.2 84 22 167/85 (112) 95 04/26/17 04:00 85 04/26/17 03:50 95 Nasal Cannula 4.00 04/26/17 02:00 84 04/26/17 00:00 98 04/26/17 00:00 98.0 87 22 154/73 (100) 94 04/25/17 23:25 97 BiPAP 40 04/25/17 23:16 96 40 04/25/17 22:00 109 04/25/17 20:00 97.9 102 23 170/80 (110) 91 04/25/17 20:00 102 04/25/17 19:22 94 30 04/25/17 19:00 Bi-Pap 30 04/25/17 18:00 118 19 164/96 (118) 04/25/17 18:00 125 04/25/17 17:31 112 29 169/83 (111) 92 04/25/17 17:00 112 27 180/88 (118) 92 04/25/17 17:00 112 27 180/88 (118) 92 04/25/17 17:00 112 04/25/17 16:30 104 20 148/83 (104) 95 I/O 04/25/17 04/25/17 04/25/17 04/26/17 04/26/17 04/26/17 07:00 15:00 23:00 07:00 15:00 23:00 Intake Total 482 ml 660 ml 360 ml Output Total 500 ml 725 ml 850 ml Balance -18 ml -65 ml -490 ml Intake Oral 482 ml 660 ml 360 ml Output Urine Total 500 ml 725 ml 850 ml # Voids 3 # Bowel Movements 1 0 Physical Exam GENERAL: SKIN: Warm and dry. HEAD: Normocephalic. EYES: No scleral icterus. No injection or drainage. NECK: Supple, trachea midline. No JVD or lymphadenopathy. CARDIOVASCULAR: Regular rate and rhythm without murmurs, gallops, or rubs. RESPIRATORY: Breath sounds equal bilaterally. No accessory muscle use. GASTROINTESTINAL: Abdomen soft, non-tender, nondistended. MUSCULOSKELETAL: No cyanosis, or edema. BACK: Nontender without obvious deformity. No CVA tenderness. Laboratory Laboratory Tests Test 04/26/17 05:54 White Blood Count 10.4 TH/MM3 Red Blood Count 4.42 MIL/MM3 Hemoglobin 15.1 GM/DL Hematocrit 44.3 % Mean Corpuscular Volume 100.3 FL Mean Corpuscular Hemoglobin 34.2 PG Mean Corpuscular Hemoglobin Concent 34.0 % Red Cell Distribution Width 13.3 % Platelet Count 159 TH/MM3 Mean Platelet Volume 8.6 FL Neutrophils (%) (Auto) 76.2 % Lymphocytes (%) (Auto) 11.2 % Monocytes (%) (Auto) 12.4 % Eosinophils (%) (Auto) 0.0 % Basophils (%) (Auto) 0.2 % Neutrophils # (Auto) 7.9 TH/MM3 Lymphocytes # (Auto) 1.2 TH/MM3 Monocytes # (Auto) 1.3 TH/MM3 Eosinophils # (Auto) 0.0 TH/MM3 Basophils # (Auto) 0.0 TH/MM3 CBC Comment DIFF FINAL Differential Comment Blood Urea Nitrogen 24 MG/DL Creatinine 0.55 MG/DL Random Glucose 115 MG/DL Calcium Level 9.2 MG/DL Sodium Level 143 MEQ/L Potassium Level 4.1 MEQ/L Chloride Level 97 MEQ/L Carbon Dioxide Level GREATER THAN 45.0 MEQ/L Anion Gap 1 MEQ/L Estimat Glomerular Filtration Rate 155 ML/MIN Assessment and Plan Problem List: (1) COPD (chronic obstructive pulmonary disease) ICD Codes: J44.9 - Chronic obstructive pulmonary disease, unspecified Status: Chronic Assessment and Plan 1.) NSTEMI - no significant obstructive cad, will continue medical management, he denies chest pain Problem Qualifiers (1) COPD (chronic obstructive pulmonary disease): Qualified Codes: J44.9 - Chronic obstructive pulmonary disease, unspecified Gaston Vásquez MD Apr 26, 2017 16:10
[2017-04-26] MEDS: METOPROLOL TARTRATE 5 MG/5 ML VIAL IV PUSH PRN (16:18)
[2017-04-26] MEDS: RESP: ALBUTEROL 2.5 MG/IPRATROPIUM 0.5 MG NEB (PRN) INH (16:33)
[2017-04-26] MEDS: TAMSULOSIN HCL 0.4 MG CAP PO SCH (20:24)
--- NOTE | 2017-04-26 21:58 | EKG ---
Date Performed: 04/26/2017 Time Performed: 06:51:52 PTAGE: 52 years EKG: Sinus rhythm LEFT ANTERIOR FASCICULAR BLOCK POSSIBLE ANTERIOR MYOCARDIAL INFARCTION , OF INDETERMINATE AGE INFERI OR MYOCARDIAL INFARCTION , OF INDETERMINATE AGE ABNORMAL ECG PREVIOUS TRACING : 04/25/2017 14.27 DOCTOR: Arcadio Reed Interpretating Date/Time 04/26/2017 21:56:45
--- NOTE | 2017-04-26 22:47 | EKG ---
Date Performed: 04/25/2017 Time Performed: 14:27:41 PTAGE: 52 years EKG: Sinus rhythm POSSIBLE RIGHT VENTRICULAR CONDUCTION DELAY LEFT ANTERIOR FASCICULAR BLOCK POSSIBLE ANTERIOR MYOCARD IAL INFARCTION , OF INDETERMINATE AGE INFERIOR MYOCARDIAL INFARCTION , OF INDETERMINATE AGE ABNORMAL ECG PREVIOUS TRACING : 04/18/2017 07.26 Since previous tracing, no significant change noted DOCTOR: Arcadio Reed Interpretating Date/Time 04/26/2017 22:45:09
[2017-04-27] VITALS (7 sets, daily range): BP systolic 136–163; BP diastolic 60–82; PULSE 80–104; RESP 18–20; TEMP 97.5–98.3; O2SAT 94–99
[2017-04-27] MEDS: CHLORHEXIDINE GLUCONATE 2 % 1 PACK (2 CLOTHS) TOP SCH (03:24)
[2017-04-27] MEDS: METHOCARBAMOL 500 MG TAB PO SCH ×3 (05:57→22:48)
[2017-04-27] MEDS: INSULIN NovoLIN REGULAR SUPPLEMENTAL SCALE SQ SCH ×4 (08:00→20:22)
[2017-04-27] MEDS: SODIUM CHLORIDE 0.9% FLUSH 10 ML FLUSH IV FLUSH SCH ×3 (09:00→20:23)
[2017-04-27] MEDS: METOPROLOL TARTRATE 50 MG TAB PO SCH ×2 (09:07→20:21)
[2017-04-27] MEDS: guaiFENesin E.R. 600 MG TAB PO SCH ×2 (09:07→20:21)
[2017-04-27] MEDS: ASPIRIN EC 81 MG TABEC PO SCH (09:07)
[2017-04-27] MEDS: predniSONE 10 MG TAB PO SCH ×3 (09:07→17:12)
[2017-04-27] MEDS: DOCUSATE SODIUM 50 MG/SENNA 8.6 MG TAB PO SCH ×2 (09:07→20:21)
[2017-04-27] MEDS: FAMOTIDINE 20 MG/2 ML VIAL IV PUSH SCH ×2 (09:08→20:22)
[2017-04-27] MEDS: BUDESONIDE-FORMOTEROL 80/4.5 MCG INHALER INH SCH ×2 (09:09→20:22)
[2017-04-27 09:10] LABS: AUTOMATED NEUTROPHIL # 6.9 TH/MM3 (1.8-7.7); BASOPHIL % 0.1 % (0.0-2.0); EOSINOPHIL % 0.2 % (0.0-4.0); HEMATOCRIT 42.1 % (39.0-51.0); HEMOGLOBIN 14.2 GM/DL (13.0-17.0); LYMPHOCYTE # 1.7 TH/MM3 (1.0-4.8); MEAN CELL VOLUME 100.1 FL (80.0-100.0); MEAN CORPUSCULAR HEMOGLOBIN 33.8 PG (27.0-34.0); MEAN CORPUSCULAR HGB CONC 33.8 % (32.0-36.0); MEAN PLATELET VOLUME 8.6 FL (7.0-11.0); MONO % 12.6 % (0.0-8.0); MONOCYTE # 1.2 TH/MM3 (0-0.9); NEUT % 70.1 % (16.0-70.0); PLATELET COUNT 127 TH/MM3 (150-450); RED BLOOD COUNT 4.21 MIL/MM3 (4.50-5.90); RED CELL DISTRIBUTION WIDTH 12.9 % (11.6-17.2); WHITE BLOOD COUNT 9.9 TH/MM3 (4.0-11.0)
[2017-04-27 09:39] LABS: BICARBONATE 40.8 MEQ/L (21.0-32.0); CALCIUM 9.2 MG/DL (8.5-10.1); CREATININE 0.58 MG/DL (0.60-1.30); MAGNESIUM 2.3 MG/DL (1.5-2.5)
[2017-04-27 09:41] LABS: PHOSPHORUS 2.8 MG/DL (2.5-4.9)
[2017-04-27] MEDS: THEOPHYLLINE 200 MG EXTENDED RELEASE CAP PO SCH (10:13)
--- NOTE | 2017-04-27 11:10 | PD.CARD.PN ---
Subjective Subjective Remarks alert in nad Objective Medications Current Medications Medications (Trade) Dose Ordered Sig/[place] Route Start Time Stop Time Status Last Admin (Symbicort 80-4.5 Mcg Inh) 1 puff Q12HR INH 04/18/17 09:00 04/27/17 09:09 (Robaxin) 500 mg Q8HR PO 04/18/17 06:00 04/26/17 22:31 (Flomax) 0.4 mg HS PO 04/18/17 21:00 04/26/17 20:24 (Dakota-24) 400 mg DAILY PO 04/18/17 09:00 04/27/17 10:13 (Mucinex Er) 600 mg BID PO 04/18/17 09:00 04/27/17 09:07 (NS Flush) 2 ml UNSCH PRN IV FLUSH 04/18/17 00:30 (NS Flush) 2 ml BID IV FLUSH 04/18/17 09:00 04/27/17 09:09 (Tylenol) 650 mg Q6H PRN PO 04/18/17 00:30 04/24/17 01:09 (Pepcid Inj) 20 mg Q12HR IV PUSH 04/18/17 09:00 04/27/17 09:08 (Zofran Inj) 4 mg Q6H PRN IV PUSH 04/18/17 00:30 (Duoneb Neb) 1 ampule Q2HR NEB PRN INH 04/18/17 00:30 04/26/17 16:33 Miscellaneous Information 1 Q361D XX 04/18/17 00:30 04/18/17 00:30 (Chlorhexidine 2% Cloth) Taper DAILY@04 TOP 04/18/17 04:00 04/14/18 03:59 04/24/17 04:00 (Chlorhexidine 2% Cloth) 3 pack UNSCH PRN TOP 04/18/17 00:30 (Edna-Colace) 1 tab BID PO 04/18/17 09:00 04/27/17 09:07 (Milk Of Magnesia Liq) 30 ml Q12H PRN PO 04/18/17 00:30 (Senokot) 17.2 mg Q12H PRN PO 04/18/17 00:30 (Dulcolax Supp) 10 mg DAILY PRN RECTAL 04/18/17 00:30 (Lactulose Liq) 30 ml DAILY PRN PO 04/18/17 00:30 (D50w (Vial) Inj) 50 ml UNSCH PRN IV PUSH 04/18/17 00:45 (Glucagon Inj) 1 mg UNSCH PRN OTHER 04/18/17 00:45 (NovoLIN R SUPPLEMENTAL SCALE) 1 ACHS SLIDING SCALE SQ 04/18/17 08:00 04/26/17 12:50 (Ecotrin Ec) 81 mg DAILY PO 04/19/17 09:00 04/27/17 09:07 (Lopressor Inj) 2.5 mg Q6H PRN IV PUSH 04/19/17 09:15 04/26/17 16:18 (Lopressor) 25 mg Q12HR PO 04/24/17 09:00 04/27/17 09:07 (NS Flush) 2 ml BID IV FLUSH 04/25/17 21:00 (NS Flush) 2 ml UNSCH PRN IV FLUSH 04/25/17 14:00 (Deltasone) 10 mg TID PO 04/26/17 09:00 04/27/17 09:07 Vital Signs / I&O Vital Signs Date Time Temp Pulse Resp B/P (MAP) Pulse Ox O2 Delivery O2 Flow Rate FiO2 04/27/17 07:53 98.1 96 18 148/75 (99) 99 04/27/17 04:00 98.3 80 18 136/60 (85) 97 04/27/17 00:00 97.5 87 18 147/79 (101) 98 04/26/17 22:42 Nasal Cannula 3.00 04/26/17 20:00 97.7 89 18 155/81 (105) 98 04/26/17 18:00 98 Nasal Cannula 3.00 04/26/17 17:51 97.2 88 18 169/89 (115) 98 04/26/17 16:53 87 16 150/85 (106) 93 04/26/17 16:00 98.5 89 26 172/83 (112) 93 04/26/17 16:00 91 26 93 04/26/17 16:00 91 04/26/17 15:00 90 04/26/17 14:00 96 04/26/17 13:00 103 04/26/17 12:00 86 1/18/18 12:00 97.7 82 35 158/77 (104) 91 04/26/17 11:36 91 Nasal Cannula 3.00 I/O 04/26/17 04/26/17 04/26/17 04/27/17 04/27/17 04/27/17 07:00 15:00 23:00 07:00 15:00 23:00 Intake Total 360 ml 480 ml Output Total 850 ml Balance -490 ml 480 ml Intake Oral 360 ml 480 ml Output Urine Total 850 ml # Voids 2 6 3 # Bowel Movements 0 2 1 Physical Exam GENERAL: SKIN: Warm and dry. HEAD: Normocephalic. EYES: No scleral icterus. No injection or drainage. NECK: Supple, trachea midline. No JVD or lymphadenopathy. CARDIOVASCULAR: Regular rate and rhythm without murmurs, gallops, or rubs. RESPIRATORY: Breath sounds equal bilaterally. No accessory muscle use. GASTROINTESTINAL: Abdomen soft, non-tender, nondistended. MUSCULOSKELETAL: No cyanosis, or edema. BACK: Nontender without obvious deformity. No CVA tenderness. Laboratory Laboratory Tests Test 04/27/17 07:15 White Blood Count 9.9 TH/MM3 Red Blood Count 4.21 MIL/MM3 Hemoglobin 14.2 GM/DL Hematocrit 42.1 % Mean Corpuscular Volume 100.1 FL Mean Corpuscular Hemoglobin 33.8 PG Mean Corpuscular Hemoglobin Concent 33.8 % Red Cell Distribution Width 12.9 % Platelet Count 127 TH/MM3 Mean Platelet Volume 8.6 FL Neutrophils (%) (Auto) 70.1 % Lymphocytes (%) (Auto) 17.0 % Monocytes (%) (Auto) 12.6 % Eosinophils (%) (Auto) 0.2 % Basophils (%) (Auto) 0.1 % Neutrophils # (Auto) 6.9 TH/MM3 Lymphocytes # (Auto) 1.7 TH/MM3 Monocytes # (Auto) 1.2 TH/MM3 Eosinophils # (Auto) 0.0 TH/MM3 Basophils # (Auto) 0.0 TH/MM3 CBC Comment DIFF FINAL Differential Comment Blood Urea Nitrogen 18 MG/DL Creatinine 0.58 MG/DL Random Glucose 96 MG/DL Calcium Level 9.2 MG/DL Phosphorus Level 2.8 MG/DL Magnesium Level 2.3 MG/DL Sodium Level 142 MEQ/L Potassium Level 3.5 MEQ/L Chloride Level 99 MEQ/L Carbon Dioxide Level 40.8 MEQ/L Anion Gap 2 MEQ/L Estimat Glomerular Filtration Rate 146 ML/MIN Assessment and Plan Problem List: (1) COPD (chronic obstructive pulmonary disease) ICD Codes: J44.9 - Chronic obstructive pulmonary disease, unspecified Status: Chronic Assessment and Plan 1.) NSTEMI - mild 2 vessel cad, continue aspirin 81 mg qd, stain held due to elavted lfts and cpk on admit, will recheck in am, he denies chest pain Problem Qualifiers (1) COPD (chronic obstructive pulmonary disease): Qualified Codes: J44.9 - Chronic obstructive pulmonary disease, unspecified Gaston Vásquez MD Apr 27, 2017 11:10
[2017-04-27] MEDS ORDERED: acetaZOLAMIDE 250 MG TAB PO ONE (12:45)
--- NOTE | 2017-04-27 16:31 | HHI.PR ---
Subjective Remarks Patient is on timothy cannula. Patient is awake and alert. Afebrile Used BIPAP briefly Weaned to 4LNC Up on the side of bed. Had cardiac cath, mild 2 vessels CAD Feels better Objective Vital Signs Vital Signs Date Time Temp Pulse Resp B/P (MAP) Pulse Ox O2 Delivery O2 Flow Rate FiO2 04/27/17 16:06 97.6 89 20 145/82 (103) 98 04/27/17 11:52 97.7 82 18 145/70 (95) 94 04/27/17 07:53 98.1 96 18 148/75 (99) 99 04/27/17 04:00 98.3 80 18 136/60 (85) 97 04/27/17 00:00 97.5 87 18 147/79 (101) 98 04/26/17 22:42 Nasal Cannula 3.00 04/26/17 20:00 97.7 89 18 155/81 (105) 98 04/26/17 18:00 98 Nasal Cannula 3.00 04/26/17 17:51 97.2 88 18 169/89 (115) 98 04/26/17 16:53 87 16 150/85 (106) 93 I/O 04/26/17 04/26/17 04/26/17 04/27/17 04/27/17 04/27/17 06:59 14:59 22:59 06:59 14:59 22:59 Intake Total 360 ml 480 ml 720 ml Output Total 850 ml Balance -490 ml 480 ml 720 ml Intake Oral 360 ml 480 ml 720 ml Output Urine Total 850 ml # Voids 2 6 3 2 # Bowel Movements 0 2 1 2 Result Diagram: 04/27/17 0715 04/27/17 0715 Objective Remarks GENERAL: Patient is 52 yo on BIPAP SKIN: Warm and dry. HEAD: Normocephalic. EYES: No scleral icterus. No injection or drainage. NECK: Supple, trachea midline. No JVD or lymphadenopathy. CARDIOVASCULAR: Regular rate and rhythm without murmurs, gallops, or rubs. RESPIRATORY: Breath sounds equal bilaterally. Few coarse BS GASTROINTESTINAL: Abdomen soft, non-tender, nondistended. MUSCULOSKELETAL: No cyanosis, or edema. BACK: Nontender without obvious deformity. No CVA tenderness. Neuro: Awake and alert A/P Assessment and Plan 1)Acute hypercapnic and hypoxic resp failure 2)COPD 3) Right basilar pneumonia 4) Obstructive sleep apnea 5)NSTEMI 6)HTN PLAN Continue with oxygen keep sat >92% Bronchodilators ( Duoneb, Symbicort), IS. On Theodur 400mg daily BIPAP PRN during day and nocturnally qhs Continue with abx ( Zosyn, Zithromax), sputum 1/0: normal resp marielle Continue with Lasix 40mg daily. GI/DVT prophylaxis- per primary team Prednisone 10 mg tid CPAP at night Jerry Matos MD Apr 27, 2017 16:31
--- NOTE | 2017-04-27 18:44 | HHI.PR ---
Subjective Remarks Patient seen this afternoon around 3 PM. Sitting up on edge of bed eating. Since he is feeling a little better today. Denies any chest pain. Says that shortness of breath is improved Objective Vital Signs Date Time Temp Pulse Resp B/P (MAP) Pulse Ox O2 Delivery O2 Flow Rate FiO2 04/27/17 17:15 96 Nasal Cannula 3.00 04/27/17 17:08 98 Nasal Cannula 3.00 04/27/17 16:06 97.6 89 20 145/82 (103) 98 04/27/17 11:52 97.7 82 18 145/70 (95) 94 04/27/17 07:53 98.1 96 18 148/75 (99) 99 04/27/17 04:00 98.3 80 18 136/60 (85) 97 04/27/17 00:00 97.5 87 18 147/79 (101) 98 04/26/17 22:42 Nasal Cannula 3.00 04/26/17 20:00 97.7 89 18 155/81 (105) 98 I/O 04/26/17 04/26/17 04/26/17 04/27/17 04/27/17 04/27/17 07:00 15:00 23:00 07:00 15:00 23:00 Intake Total 360 ml 480 ml 720 ml Output Total 850 ml Balance -490 ml 480 ml 720 ml Intake Oral 360 ml 480 ml 720 ml Output Urine Total 850 ml # Voids 2 6 3 2 # Bowel Movements 0 2 1 2 Result Diagram: 04/27/17 0715 04/27/17 0715 Objective Remarks GENERAL: Patient sitting up in bed. Appears comfortable. SKIN: Warm and dry. HEAD: Normocephalic. EYES: No scleral icterus. No injection or drainage. NECK: Supple, trachea midline. No JVD. CARDIOVASCULAR: Regular rate and rhythm without murmurs, gallops, or rubs. RESPIRATORY: Breath sounds equal bilaterally. Poor air movement bilaterally. No accessory muscle use. GASTROINTESTINAL: Abdomen soft, non-tender, nondistended. MUSCULOSKELETAL: No cyanosis, or edema. BACK: Nontender without obvious deformity. No CVA tenderness. A/P Assessment and Plan //Acute hypoxic and hypercarbic Respiratory failure //COPD exacerbation //RIGOBERTO - Continue with oxygen keep sat >92% - Continue Prednisone 10mg TID. Give Diamox 250mg IV x1 - DuoNeb scheduled and when necessary - Self extubation 04/19. off BIPAP, on nasal cannula currently. - Continue home meds -theophylline, Symbicort - Pulmonary is following- Dr. Matos appreciate assistance. //GI - heart healthy diet as tolerated. -Bowel regimen //Hypertension //NSTEMI, type 2 secondary to demand ischemia - Monitor HR and BP keep MAP>65mmHg - Dr. Vásquez following - [id number] Q12 - s/p cardiac cath by Dr. Vásquez: 2V mild disease, EF 60% = Continue to monitor. ID: Monitor for signs of infections ( Fever, WBC) Off abx(s/p Zosyn and Azithromycin course) cultures: NGTD //BPH - Tamsulosin Monitor renal function, I/O's, electrolytes replacement per protocol. Endo: - dc SSI with accuchecks to maintain Euglycemia Heme: Monitor CBC DVT GI prophylaxis - Teds SCDs - IV Pepcid SQH Discharge Planning Pending senior clinical consultant clearance. Pending further improvement in respiratory status. Hans Banda MD Apr 27, 2017 18:44
[2017-04-27] MEDS: TAMSULOSIN HCL 0.4 MG CAP PO SCH (20:21)
[2017-04-28] VITALS (7 sets, daily range): BP systolic 106–141; BP diastolic 65–85; PULSE 76–109; RESP 17–18; TEMP 97.3–98.6; O2SAT 97–99
[2017-04-28] MEDS: CHLORHEXIDINE GLUCONATE 2 % 1 PACK (2 CLOTHS) TOP SCH (04:04)
[2017-04-28] MEDS: METHOCARBAMOL 500 MG TAB PO SCH ×3 (05:02→21:45)
[2017-04-28 06:25] LABS: HEMATOCRIT 45.3 % (39.0-51.0); HEMOGLOBIN 15.1 GM/DL (13.0-17.0); MEAN CELL VOLUME 100.1 FL (80.0-100.0); MEAN CORPUSCULAR HEMOGLOBIN 33.3 PG (27.0-34.0); MEAN CORPUSCULAR HGB CONC 33.3 % (32.0-36.0); MEAN PLATELET VOLUME 8.3 FL (7.0-11.0); PLATELET COUNT 120 TH/MM3 (150-450); RED BLOOD COUNT 4.52 MIL/MM3 (4.50-5.90); RED CELL DISTRIBUTION WIDTH 13.1 % (11.6-17.2); WHITE BLOOD COUNT 10.5 TH/MM3 (4.0-11.0)
[2017-04-28 06:46] LABS: ALBUMIN 2.9 GM/DL (3.4-5.0); BICARBONATE 40.8 MEQ/L (21.0-32.0); CALCIUM 8.9 MG/DL (8.5-10.1); CREATININE 0.62 MG/DL (0.60-1.30)
[2017-04-28 06:50] LABS: CHOLESTEROL/ HDL RATIO 2.66 RATIO; DIRECT BILIRUBIN ADULT 0.3 MG/DL (0.0-0.2); HDL CHOLESTEROL 74.2 MG/DL (40.0-60.0); INDIRECT BILIRUBIN 0.5 MG/DL (0.0-0.8); TOTAL BILIRUBIN ADULT 0.8 MG/DL (0.2-1.0); TOTAL PROTEIN 6.3 GM/DL (6.4-8.2)
[2017-04-28] MEDS: INSULIN NovoLIN REGULAR SUPPLEMENTAL SCALE SQ SCH ×4 (08:00→21:00)
[2017-04-28] MEDS: guaiFENesin E.R. 600 MG TAB PO SCH ×2 (08:06→21:45)
[2017-04-28] MEDS: predniSONE 10 MG TAB PO SCH ×3 (08:06→17:46)
[2017-04-28] MEDS: DOCUSATE SODIUM 50 MG/SENNA 8.6 MG TAB PO SCH ×2 (08:06→21:45)
[2017-04-28] MEDS: ASPIRIN EC 81 MG TABEC PO SCH (08:06)
[2017-04-28] MEDS: METOPROLOL TARTRATE 50 MG TAB PO SCH ×2 (08:06→21:45)
[2017-04-28] MEDS: FAMOTIDINE 20 MG/2 ML VIAL IV PUSH SCH ×2 (08:07→21:46)
[2017-04-28] MEDS: BUDESONIDE-FORMOTEROL 80/4.5 MCG INHALER INH SCH ×2 (08:07→21:47)
[2017-04-28] MEDS: THEOPHYLLINE 200 MG EXTENDED RELEASE CAP PO SCH (08:07)
[2017-04-28] MEDS: SODIUM CHLORIDE 0.9% FLUSH 10 ML FLUSH IV FLUSH SCH ×2 (08:07→21:46)
--- NOTE | 2017-04-28 09:06 | PD.CARD.PN ---
Subjective Subjective Remarks alert in nad, denies chest pain Objective Medications Current Medications Medications (Trade) Dose Ordered Sig/[place] Route Start Time Stop Time Status Last Admin (Symbicort 80-4.5 Mcg Inh) 1 puff Q12HR INH 04/18/17 09:00 04/28/17 08:07 (Robaxin) 500 mg Q8HR PO 04/18/17 06:00 04/28/17 05:02 (Flomax) 0.4 mg HS PO 04/18/17 21:00 04/27/17 20:21 (Dakota-24) 400 mg DAILY PO 04/18/17 09:00 04/28/17 08:07 (Mucinex Er) 600 mg BID PO 04/18/17 09:00 04/28/17 08:06 (Tylenol) 650 mg Q6H PRN PO 04/18/17 00:30 04/24/17 01:09 (Pepcid Inj) 20 mg Q12HR IV PUSH 04/18/17 09:00 04/27/17 20:22 (Zofran Inj) 4 mg Q6H PRN IV PUSH 04/18/17 00:30 (Duoneb Neb) 1 ampule Q2HR NEB PRN INH 04/18/17 00:30 04/26/17 16:33 Miscellaneous Information 1 Q361D XX 04/18/17 00:30 04/18/17 00:30 (Chlorhexidine 2% Cloth) Taper DAILY@04 TOP 04/18/17 04:00 04/14/18 03:59 04/24/17 04:00 (Chlorhexidine 2% Cloth) 3 pack UNSCH PRN TOP 04/18/17 00:30 (Edna-Colace) 1 tab BID PO 04/18/17 09:00 04/28/17 08:06 (Milk Of Magnesia Liq) 30 ml Q12H PRN PO 04/18/17 00:30 (Senokot) 17.2 mg Q12H PRN PO 04/18/17 00:30 (Dulcolax Supp) 10 mg DAILY PRN RECTAL 04/18/17 00:30 (Lactulose Liq) 30 ml DAILY PRN PO 04/18/17 00:30 (D50w (Vial) Inj) 50 ml UNSCH PRN IV PUSH 04/18/17 00:45 (Glucagon Inj) 1 mg UNSCH PRN OTHER 04/18/17 00:45 (NovoLIN R SUPPLEMENTAL SCALE) 1 ACHS SLIDING SCALE SQ 04/18/17 08:00 04/27/17 12:22 (Ecotrin Ec) 81 mg DAILY PO 04/19/17 09:00 04/28/17 08:06 (Lopressor Inj) 2.5 mg Q6H PRN IV PUSH 04/19/17 09:15 04/26/17 16:18 (Lopressor) 25 mg Q12HR PO 04/24/17 09:00 04/28/17 08:06 (NS Flush) 2 ml BID IV FLUSH 04/25/17 21:00 04/28/17 08:07 (NS Flush) 2 ml UNSCH PRN IV FLUSH 04/25/17 14:00 (Deltasone) 10 mg TID PO 04/26/17 09:00 04/28/17 08:06 Vital Signs / I&O Vital Signs Date Time Temp Pulse Resp B/P (MAP) Pulse Ox O2 Delivery O2 Flow Rate FiO2 04/28/17 08:19 97.4 93 17 115/69 (84) 97 04/28/17 04:00 98.6 92 18 106/66 (79) 98 04/28/17 00:00 97.3 76 18 114/66 (82) 98 04/27/17 20:21 Nasal Cannula 3.00 30 04/27/17 20:00 98.2 104 18 163/82 (109) 98 04/27/17 17:15 96 Nasal Cannula 3.00 04/27/17 17:08 98 Nasal Cannula 3.00 04/27/17 16:06 97.6 89 20 145/82 (103) 98 04/27/17 11:52 97.7 82 18 145/70 (95) 94 I/O 04/27/17 04/27/17 04/27/17 04/28/17 04/28/17 04/28/17 07:00 15:00 23:00 07:00 15:00 23:00 Intake Total 720 ml Balance 720 ml Intake Oral 720 ml # Voids 6 3 2 6 2 # Bowel Movements 1 2 Physical Exam GENERAL: SKIN: Warm and dry. HEAD: Normocephalic. EYES: No scleral icterus. No injection or drainage. NECK: Supple, trachea midline. No JVD or lymphadenopathy. CARDIOVASCULAR: Regular rate and rhythm without murmurs, gallops, or rubs. RESPIRATORY: Breath sounds equal bilaterally. No accessory muscle use. GASTROINTESTINAL: Abdomen soft, non-tender, nondistended. MUSCULOSKELETAL: No cyanosis, or edema. BACK: Nontender without obvious deformity. No CVA tenderness. Laboratory Laboratory Tests Test 04/28/17 06:16 White Blood Count 10.5 TH/MM3 Red Blood Count 4.52 MIL/MM3 Hemoglobin 15.1 GM/DL Hematocrit 45.3 % Mean Corpuscular Volume 100.1 FL Mean Corpuscular Hemoglobin 33.3 PG Mean Corpuscular Hemoglobin Concent 33.3 % Red Cell Distribution Width 13.1 % Platelet Count 120 TH/MM3 Mean Platelet Volume 8.3 FL Blood Urea Nitrogen 20 MG/DL Creatinine 0.62 MG/DL Random Glucose 113 MG/DL Total Protein 6.3 GM/DL Albumin 2.9 GM/DL Calcium Level 8.9 MG/DL Alkaline Phosphatase 115 U/L Aspartate Amino Transf (AST/SGOT) 44 U/L Alanine Aminotransferase (ALT/SGPT) 139 U/L Total Bilirubin 0.8 MG/DL Direct Bilirubin 0.3 MG/DL Sodium Level 143 MEQ/L Potassium Level 3.8 MEQ/L Chloride Level 100 MEQ/L Carbon Dioxide Level 40.8 MEQ/L Anion Gap 2 MEQ/L Estimat Glomerular Filtration Rate 135 ML/MIN Indirect Bilirubin 0.5 MG/DL Total Creatine Kinase 87 U/L Triglycerides Level 149 MG/DL Cholesterol Level 198 MG/DL LDL Cholesterol 94 MG/DL HDL Cholesterol 74.2 MG/DL Cholesterol/HDL Ratio 2.66 RATIO Assessment and Plan Problem List: (1) COPD (chronic obstructive pulmonary disease) ICD Codes: J44.9 - Chronic obstructive pulmonary disease, unspecified Status: Chronic Assessment and Plan 1.) NSTEMI - mild 2 vessel cad, continue aspirin 81 mg qd, stain held due to elevated lfts and cpk on admit, repeat lfts 04/28/17 still elevated, he denies chest pain Problem Qualifiers (1) COPD (chronic obstructive pulmonary disease): Qualified Codes: J44.9 - Chronic obstructive pulmonary disease, unspecified Gaston Vásquez MD Apr 28, 2017 09:05
--- NOTE | 2017-04-28 13:44 | HHI.PR ---
Subjective Remarks Patient is on timothy cannula. Patient is awake and alert. Afebrile Used BIPAP briefly Weaned to 4LNC Up on the side of bed. Feels better Objective Vital Signs Vital Signs Date Time Temp Pulse Resp B/P (MAP) Pulse Ox O2 Delivery O2 Flow Rate FiO2 04/28/17 12:26 97.5 89 17 134/65 (88) 99 04/28/17 09:52 98 Nasal Cannula 3.00 04/28/17 08:19 97.4 93 17 115/69 (84) 97 04/28/17 04:00 98.6 92 18 106/66 (79) 98 04/28/17 00:00 97.3 76 18 114/66 (82) 98 04/27/17 20:21 Nasal Cannula 3.00 30 04/27/17 20:00 98.2 104 18 163/82 (109) 98 04/27/17 17:15 96 Nasal Cannula 3.00 04/27/17 17:08 98 Nasal Cannula 3.00 04/27/17 16:06 97.6 89 20 145/82 (103) 98 I/O 04/27/17 04/27/17 04/27/17 04/28/17 04/28/17 04/28/17 06:59 14:59 22:59 06:59 14:59 22:59 Intake Total 720 ml Balance 720 ml Intake Oral 720 ml # Voids 6 3 2 6 2 # Bowel Movements 1 2 Result Diagram: 04/28/17 0616 04/28/17 0616 Objective Remarks GENERAL: Patient is 52 yo on BIPAP SKIN: Warm and dry. HEAD: Normocephalic. EYES: No scleral icterus. No injection or drainage. NECK: Supple, trachea midline. No JVD or lymphadenopathy. CARDIOVASCULAR: Regular rate and rhythm without murmurs, gallops, or rubs. RESPIRATORY: Breath sounds equal bilaterally. Few coarse BS GASTROINTESTINAL: Abdomen soft, non-tender, nondistended. MUSCULOSKELETAL: No cyanosis, or edema. BACK: Nontender without obvious deformity. No CVA tenderness. Neuro: Awake and alert A/P Assessment and Plan 1)Acute hypercapnic and hypoxic resp failure 2)COPD 3) Right basilar pneumonia 4) Obstructive sleep apnea 5)NSTEMI 6)HTN PLAN Continue with oxygen keep sat >92% Bronchodilators ( Duoneb, Symbicort), IS. On Theodur 400mg daily Continue with abx ( Zosyn, Zithromax), sputum 1/0: normal resp marielle Continue with Lasix 40mg daily. GI/DVT prophylaxis- per primary team Prednisone 10 mg tid CPAP at night, pt will use his own machine DC Plans underway Jerry Matos MD Apr 28, 2017 13:44
[2017-04-28] MEDS ORDERED: Albuterol-Ipratropium Neb INH (15:39)
[2017-04-28] MEDS ORDERED: PRED10 PO (15:47)
--- NOTE | 2017-04-28 15:48 | HHI.PR ---
Subjective Remarks Patient says he is feeling all right today. As any chest pain. Reports shortness of breath is improving. Feels comfortable going to SNF. Objective Vital Signs Date Time Temp Pulse Resp B/P (MAP) Pulse Ox O2 Delivery O2 Flow Rate FiO2 04/28/17 12:26 97.5 89 17 134/65 (88) 99 04/28/17 09:52 98 Nasal Cannula 3.00 04/28/17 08:19 97.4 93 17 115/69 (84) 97 04/28/17 04:00 98.6 92 18 106/66 (79) 98 04/28/17 00:00 97.3 76 18 114/66 (82) 98 04/27/17 20:21 Nasal Cannula 3.00 30 04/27/17 20:00 98.2 104 18 163/82 (109) 98 04/27/17 17:15 96 Nasal Cannula 3.00 04/27/17 17:08 98 Nasal Cannula 3.00 04/27/17 16:06 97.6 89 20 145/82 (103) 98 I/O 04/27/17 04/27/17 04/27/17 04/28/17 04/28/17 04/28/17 07:00 15:00 23:00 07:00 15:00 23:00 Intake Total 720 ml 480 ml Output Total 400 ml Balance 720 ml 80 ml Intake Oral 720 ml 480 ml Output Urine Total 400 ml # Voids 6 3 2 6 2 # Bowel Movements 1 2 1 Result Diagram: 04/28/17 0616 04/28/17 0616 Objective Remarks GENERAL: Patient sitting up in bed. Appears to be breathing more comfortably today.. SKIN: Warm and dry. HEAD: Normocephalic. EYES: No scleral icterus. No injection or drainage. NECK: Supple, trachea midline. No JVD. CARDIOVASCULAR: Regular rate and rhythm without murmurs, gallops, or rubs. RESPIRATORY: Breath sounds equal bilaterally. Poor air movement bilaterally. No accessory muscle use. GASTROINTESTINAL: Abdomen soft, non-tender, nondistended. MUSCULOSKELETAL: No cyanosis, or edema. BACK: Nontender without obvious deformity. No CVA tenderness. A/P Assessment and Plan //Acute hypoxic and hypercarbic Respiratory failure //COPD exacerbation //RIGOBERTO //Pulmonary hypertension. - Continue with oxygen keep sat >92% - Continue Prednisone 10mg TID. Give Diamox 250mg IV x1 - DuoNeb scheduled and when necessary - Self extubation 04/19. off BIPAP, on nasal cannula currently. - Continue home meds -theophylline, Symbicort = Completed antibiotics. - Pulmonary is following- Dr. Matos appreciate assistance. = 04/28. The stress test continues improving. Appreciate pulmonary assistance. //GI - heart healthy diet as tolerated. -Bowel regimen //Hypertension //NSTEMI, type 2 secondary to demand ischemia - Monitor HR and BP keep MAP>65mmHg - Dr. Vásquez following - [id number] Q12 - s/p cardiac cath by Dr. Vásquez: 2V mild disease, EF 60% = Signs stable. Continue to monitor. //BPH. chronic. - Tamsulosin Monitor renal function, I/O's, electrolytes replacement per protocol. Endo: - dc SSI with accuchecks to maintain Euglycemia Heme: Monitor CBC DVT GI prophylaxis. Start Lovenox. Discharge Planning Discharge to SNF tomorrow. Hans Banda MD Apr 28, 2017 15:48
[2017-04-28] MEDS ORDERED: ASPI81TA23 PO (15:49)
[2017-04-28] MEDS ORDERED: FUROSEMIDE 40 MG TAB PO ONE (16:00)
[2017-04-28] MEDS: ENOXAPARIN SODIUM 40 MG/0.4 ML SYRINGE SQ SCH (16:26)
[2017-04-28] MEDS: TAMSULOSIN HCL 0.4 MG CAP PO SCH (21:45)
[2017-04-29] VITALS (7 sets, daily range): BP systolic 115–141; BP diastolic 68–86; PULSE 79–96; RESP 16–19; TEMP 97.1–98.3; O2SAT 94–100
[2017-04-29] MEDS: CHLORHEXIDINE GLUCONATE 2 % 1 PACK (2 CLOTHS) TOP SCH (04:00)
[2017-04-29] MEDS: METHOCARBAMOL 500 MG TAB PO SCH ×3 (05:42→21:19)
[2017-04-29 05:56] LABS: HEMATOCRIT 42.8 % (39.0-51.0); HEMOGLOBIN 14.5 GM/DL (13.0-17.0); MEAN CORPUSCULAR HEMOGLOBIN 33.6 PG (27.0-34.0); MEAN CORPUSCULAR HGB CONC 33.9 % (32.0-36.0); MEAN PLATELET VOLUME 8.4 FL (7.0-11.0); PLATELET COUNT 129 TH/MM3 (150-450); RED BLOOD COUNT 4.33 MIL/MM3 (4.50-5.90); RED CELL DISTRIBUTION WIDTH 12.9 % (11.6-17.2); WHITE BLOOD COUNT 11.1 TH/MM3 (4.0-11.0)
[2017-04-29 06:24] LABS: BICARBONATE 44.9 MEQ/L (21.0-32.0); CALCIUM 8.9 MG/DL (8.5-10.1); CREATININE 0.68 MG/DL (0.60-1.30)
[2017-04-29] MEDS: INSULIN NovoLIN REGULAR SUPPLEMENTAL SCALE SQ SCH ×4 (07:59→21:18)
--- NOTE | 2017-04-29 08:11 | RADRPT ---
EXAM DATE/TIME: 04/29/2017 07:14 [place] COMPARISON: No previous studies available for comparison. INDICATIONS : Increased lab values. MEDICAL HISTORY : Congestive heart failure. Chronic obstructive pulmonary disease. Emphysema. Dyspnea. Hiatal hernia. SURGICAL HISTORY : Hernia repair. ENCOUNTER: Initial ACUITY: 1 day PAIN SCORE: Nonresponsive. LOCATION: Bilateral upper quadrant MEASUREMENTS: LIVER: 15.7 cm length COMMON DUCT: 5 mm RIGHT KIDNEY: 10.8 x 6.8 x 6.1 cm SPLEEN: 11.8 cm length FINDINGS: The liver is slightly echogenic which maybe due to fatty infiltration and or hepatocellular dysfuncti on. The gallbladder demonstrates an area of hypoechogenicity measures 1.7 cm could be a stone without gallbladder wall thickening, or pericholecystic fluid. The visualized head of the pancreas, and rig ht kidney appear grossly intact for technique. CONCLUSION: The liver is slightly echogenic which maybe due to fatty infiltration and or hepatoce llular dysfunction and possible gallstone. Rossana Adorno MD on April 29, 2017 at 8:07 Board Certified Radiologist. This report was verified electronically.
[2017-04-29] MEDS: THEOPHYLLINE 200 MG EXTENDED RELEASE CAP PO SCH (08:12)
[2017-04-29] MEDS: guaiFENesin E.R. 600 MG TAB PO SCH ×2 (08:12→21:02)
[2017-04-29] MEDS: FAMOTIDINE 20 MG/2 ML VIAL IV PUSH SCH ×2 (08:13→21:02)
[2017-04-29] MEDS: predniSONE 10 MG TAB PO SCH ×3 (08:13→17:04)
[2017-04-29] MEDS: DOCUSATE SODIUM 50 MG/SENNA 8.6 MG TAB PO SCH ×2 (08:13→21:00)
[2017-04-29] MEDS: METOPROLOL TARTRATE 50 MG TAB PO SCH ×2 (08:13→21:02)
[2017-04-29] MEDS: ASPIRIN EC 81 MG TABEC PO SCH (08:13)
[2017-04-29] MEDS: SODIUM CHLORIDE 0.9% FLUSH 10 ML FLUSH IV FLUSH SCH ×2 (08:13→21:02)
[2017-04-29] MEDS: BUDESONIDE-FORMOTEROL 80/4.5 MCG INHALER INH SCH ×2 (08:16→21:03)
[2017-04-29] MEDS ORDERED: FUROSEMIDE 40 MG TAB PO SCH (09:00)
--- NOTE | 2017-04-29 10:59 | PD.CARD.PN ---
Subjective Subjective Remarks alert in nad, denies chest pain Objective Medications Current Medications Medications (Trade) Dose Ordered Sig/[place] Route Start Time Stop Time Status Last Admin (Symbicort 80-4.5 Mcg Inh) 1 puff Q12HR INH 04/18/17 09:00 04/29/17 08:16 (Robaxin) 500 mg Q8HR PO 04/18/17 06:00 04/28/17 21:45 (Flomax) 0.4 mg HS PO 04/18/17 21:00 04/28/17 21:45 (Dakota-24) 400 mg DAILY PO 04/18/17 09:00 04/29/17 08:12 (Mucinex Er) 600 mg BID PO 04/18/17 09:00 04/29/17 08:12 (Tylenol) 650 mg Q6H PRN PO 04/18/17 00:30 04/24/17 01:09 (Pepcid Inj) 20 mg Q12HR IV PUSH 04/18/17 09:00 04/29/17 08:13 (Zofran Inj) 4 mg Q6H PRN IV PUSH 04/18/17 00:30 (Duoneb Neb) 1 ampule Q2HR NEB PRN INH 04/18/17 00:30 04/26/17 16:33 Miscellaneous Information 1 Q361D XX 04/18/17 00:30 04/18/17 00:30 (Chlorhexidine 2% Cloth) Taper DAILY@04 TOP 04/18/17 04:00 04/14/18 03:59 04/24/17 04:00 (Chlorhexidine 2% Cloth) 3 pack UNSCH PRN TOP 04/18/17 00:30 (Edna-Colace) 1 tab BID PO 04/18/17 09:00 04/28/17 21:45 (Milk Of Magnesia Liq) 30 ml Q12H PRN PO 04/18/17 00:30 (Senokot) 17.2 mg Q12H PRN PO 04/18/17 00:30 (Dulcolax Supp) 10 mg DAILY PRN RECTAL 04/18/17 00:30 (Lactulose Liq) 30 ml DAILY PRN PO 04/18/17 00:30 (D50w (Vial) Inj) 50 ml UNSCH PRN IV PUSH 04/18/17 00:45 (Glucagon Inj) 1 mg UNSCH PRN OTHER 04/18/17 00:45 (NovoLIN R SUPPLEMENTAL SCALE) 1 ACHS SLIDING SCALE SQ 04/18/17 08:00 04/28/17 11:58 (Ecotrin Ec) 81 mg DAILY PO 04/19/17 09:00 04/29/17 08:13 (Lopressor Inj) 2.5 mg Q6H PRN IV PUSH 04/19/17 09:15 04/26/17 16:18 (Lopressor) 25 mg Q12HR PO 04/24/17 09:00 04/29/17 08:13 (NS Flush) 2 ml BID IV FLUSH 04/25/17 21:00 04/29/17 08:13 (NS Flush) 2 ml UNSCH PRN IV FLUSH 04/25/17 14:00 (Deltasone) 10 mg TID PO 04/26/17 09:00 04/29/17 08:13 (Lovenox Inj) 40 mg Q24H SQ 04/28/17 16:00 04/28/17 16:26 (Lasix) 40 mg DAILY PO 04/29/17 09:00 04/29/17 08:12 Vital Signs / I&O Vital Signs Date Time Temp Pulse Resp B/P (MAP) Pulse Ox O2 Delivery O2 Flow Rate FiO2 04/29/17 08:03 97.8 79 16 119/78 (92) 94 04/29/17 04:30 98.1 89 19 130/78 (95) 100 04/29/17 00:09 98.3 90 19 119/68 (85) 97 04/28/17 23:23 Nasal Cannula 2.00 04/28/17 20:16 98.4 109 18 129/79 (96) 98 04/28/17 15:58 97.4 88 17 141/85 (103) 97 04/28/17 12:26 97.5 89 17 134/65 (88) 99 I/O 04/28/17 04/28/17 04/28/17 04/29/17 04/29/17 04/29/17 07:00 15:00 23:00 07:00 15:00 23:00 Intake Total 480 ml Output Total 400 ml 700 ml 400 ml Balance 80 ml -700 ml -400 ml Intake Oral 480 ml Output Urine Total 400 ml 700 ml 400 ml # Voids 6 2 # Bowel Movements 1 1 Physical Exam GENERAL: SKIN: Warm and dry. HEAD: Normocephalic. EYES: No scleral icterus. No injection or drainage. NECK: Supple, trachea midline. No JVD or lymphadenopathy. CARDIOVASCULAR: Regular rate and rhythm without murmurs, gallops, or rubs. RESPIRATORY: Breath sounds equal bilaterally. No accessory muscle use. GASTROINTESTINAL: Abdomen soft, non-tender, nondistended. MUSCULOSKELETAL: No cyanosis, or edema. BACK: Nontender without obvious deformity. No CVA tenderness. Laboratory Laboratory Tests Test 04/29/17 05:40 White Blood Count 11.1 TH/MM3 Red Blood Count 4.33 MIL/MM3 Hemoglobin 14.5 GM/DL Hematocrit 42.8 % Mean Corpuscular Volume 99.0 FL Mean Corpuscular Hemoglobin 33.6 PG Mean Corpuscular Hemoglobin Concent 33.9 % Red Cell Distribution Width 12.9 % Platelet Count 129 TH/MM3 Mean Platelet Volume 8.4 FL Blood Urea Nitrogen 19 MG/DL Creatinine 0.68 MG/DL Random Glucose 111 MG/DL Calcium Level 8.9 MG/DL Sodium Level 140 MEQ/L Potassium Level 3.2 MEQ/L Chloride Level 94 MEQ/L Carbon Dioxide Level 44.9 MEQ/L Anion Gap 1 MEQ/L Estimat Glomerular Filtration Rate 122 ML/MIN Imaging Last 24 hours Impressions Liver Ultrasound 04/29/17 0000 Signed Impressions: Service Date/Time: Saturday, April 29, 2017 07:14 - CONCLUSION: The liver is slightly echogenic which maybe due to fatty infiltration and or hepatocellular dysfunction and possible gallstone. Rossana Adorno MD Assessment and Plan Problem List: (1) COPD (chronic obstructive pulmonary disease) ICD Codes: J44.9 - Chronic obstructive pulmonary disease, unspecified Status: Chronic Assessment and Plan 1.) NSTEMI - mild 2 vessel cad, continue aspirin 81 mg qd, statin held due to elevated lfts and cpk on admit, repeat lfts 04/28/17 still elevated, he denies chest pain Problem Qualifiers (1) COPD (chronic obstructive pulmonary disease): Qualified Codes: J44.9 - Chronic obstructive pulmonary disease, unspecified Gaston Vásquez MD Apr 29, 2017 10:59
--- NOTE | 2017-04-29 13:03 | HHI.PR ---
Subjective Remarks Patient is on timothy cannula. Patient is awake and alert. Afebrile Used BIPAP briefly Weaned to 4LNC Up on the side of bed. Feels better No new complaint Objective Vital Signs Vital Signs Date Time Temp Pulse Resp B/P (MAP) Pulse Ox O2 Delivery O2 Flow Rate FiO2 04/29/17 12:46 97.8 90 17 115/72 (86) 97 04/29/17 08:03 97.8 79 16 119/78 (92) 94 04/29/17 04:30 98.1 89 19 130/78 (95) 100 04/29/17 00:09 98.3 90 19 119/68 (85) 97 04/28/17 23:23 Nasal Cannula 2.00 04/28/17 20:16 98.4 109 18 129/79 (96) 98 04/28/17 15:58 97.4 88 17 141/85 (103) 97 I/O 04/28/17 04/28/17 04/28/17 04/29/17 04/29/17 04/29/17 07:00 15:00 23:00 07:00 15:00 23:00 Intake Total 480 ml Output Total 400 ml 700 ml 400 ml Balance 80 ml -700 ml -400 ml Intake Oral 480 ml Output Urine Total 400 ml 700 ml 400 ml # Voids 6 2 # Bowel Movements 1 1 Result Diagram: 04/29/17 0540 04/29/17 0540 Objective Remarks GENERAL: Patient is 52 yo on BIPAP SKIN: Warm and dry. HEAD: Normocephalic. EYES: No scleral icterus. No injection or drainage. NECK: Supple, trachea midline. No JVD or lymphadenopathy. CARDIOVASCULAR: Regular rate and rhythm without murmurs, gallops, or rubs. RESPIRATORY: Breath sounds equal bilaterally. Few coarse BS GASTROINTESTINAL: Abdomen soft, non-tender, nondistended. MUSCULOSKELETAL: No cyanosis, or edema. BACK: Nontender without obvious deformity. No CVA tenderness. Neuro: Awake and alert A/P Assessment and Plan 1)Acute hypercapnic and hypoxic resp failure 2)COPD 3) Right basilar pneumonia 4) Obstructive sleep apnea 5)NSTEMI 6)HTN PLAN Continue with oxygen keep sat >92% Bronchodilators ( Duoneb, Symbicort), IS. On Theodur 400mg daily Continue with abx ( Zosyn, Zithromax), sputum 1/0: normal resp marielle Continue with Lasix 40mg daily. GI/DVT prophylaxis- per primary team Prednisone 10 mg tid CPAP at night, pt will use his own machine Jerry Matos MD Apr 29, 2017 13:03
[2017-04-29] MEDS ORDERED: POTA10CA PO (15:00)
[2017-04-29] MEDS ORDERED: POTASSIUM CHLORIDE 10 MEQ CONTROLLED RELEASE TAB PO ONE (15:00)
[2017-04-29] MEDS ORDERED: FURO20TA PO (15:02)
--- NOTE | 2017-04-29 15:06 | HHI.PR ---
Subjective Remarks Patient says he is feeling all right today. Denies any chest pain. Reports shortness of breath improved. Feels like leaving hospital. Objective Vital Signs Date Time Temp Pulse Resp B/P (MAP) Pulse Ox O2 Delivery O2 Flow Rate FiO2 04/29/17 12:46 97.8 90 17 115/72 (86) 97 04/29/17 08:03 97.8 79 16 119/78 (92) 94 04/29/17 04:30 98.1 89 19 130/78 (95) 100 04/29/17 00:09 98.3 90 19 119/68 (85) 97 04/28/17 23:23 Nasal Cannula 2.00 04/28/17 20:16 98.4 109 18 129/79 (96) 98 04/28/17 15:58 97.4 88 17 141/85 (103) 97 I/O 04/28/17 04/28/17 04/28/17 04/29/17 04/29/17 04/29/17 07:00 15:00 23:00 07:00 15:00 23:00 Intake Total 480 ml Output Total 400 ml 700 ml 400 ml 300 ml Balance 80 ml -700 ml -400 ml -300 ml Intake Oral 480 ml Output Urine Total 400 ml 700 ml 400 ml 300 ml # Voids 6 2 # Bowel Movements 1 1 1 Result Diagram: 04/29/17 0540 04/29/17 0540 Objective Remarks GENERAL: Patient sitting up in bed. Appears to be breathing comfortably. No change on exam. SKIN: Warm and dry. HEAD: Normocephalic. EYES: No scleral icterus. No injection or drainage. NECK: Supple, trachea midline. No JVD. CARDIOVASCULAR: Regular rate and rhythm without murmurs, gallops, or rubs. RESPIRATORY: Breath sounds equal bilaterally. No accessory muscle use. GASTROINTESTINAL: Abdomen soft, non-tender, nondistended. MUSCULOSKELETAL: No cyanosis, or edema. BACK: Nontender without obvious deformity. No CVA tenderness. A/P Assessment and Plan //Acute hypoxic and hypercarbic Respiratory failure //COPD exacerbation //RIGOBERTO //Pulmonary hypertension. - Continue with oxygen keep sat >92% - Continue Prednisone 10mg TID. Give Diamox 250mg IV x1 - DuoNeb scheduled and when necessary - Self extubation 04/19. off BIPAP, on nasal cannula currently. - Continue home meds -theophylline, Symbicort = Completed antibiotics. - Pulmonary is following- Dr. Matos appreciate assistance. = 04/28. Urinary status continues improving. Appreciate pulmonary assistance. -Stable for discharge to SNF //Hypokalemia. Potassium 3.2. Replaced. //GI - heart healthy diet as tolerated. -Bowel regimen //Hypertension //NSTEMI, type 2 secondary to demand ischemia - Monitor HR and BP keep MAP>65mmHg - Dr. Vásquez following - [id number] Q12 - s/p cardiac cath by Dr. Vásquez: 2V mild disease, EF 60% = vital Signs stable. Continue to monitor. //BPH. chronic. - Tamsulosin Monitor renal function, I/O's, electrolytes replacement per protocol. Endo: - dc SSI with accuchecks to maintain Euglycemia Heme: Monitor CBC Discharge Planning Discharge to SNF when accepted. Hans Banda MD Apr 29, 2017 15:06
--- NOTE | 2017-04-29 15:07 | HHI.DS ---
Discharge Summary Admission Date Apr 17, 2017 at 23:46 Discharge Date: Apr 29, 2017 Admitting Diagnosis respiratory failure (1) Pulmonary hypertension ICD Code: I27.20 - Pulmonary hypertension, unspecified (2) COPD (chronic obstructive pulmonary disease) ICD Code: J44.9 - Chronic obstructive pulmonary disease, unspecified Status: Chronic (3) Respiratory failure with hypercapnia ICD Code: J96.92 - Respiratory failure, unspecified with hypercapnia Status: Acute Procedures Cardiac catheterization. Please see report Brief History - From Admission 52 year old male who presents with a history of shortness of breath that began 2 days ago associated with a dry cough. The patient called ambulance services related to the shortness of breath and was noted to be saturating 92% on 2 L nasal cannula O2. The patient is normally on 2 L nasal cannula O2 continuously related to a history of COPD. The patient denies smoking currently. In the emergency department he has received the breathing treatment and IV steroids and was placed on BiPAP without any improvement. Continues to be severely hypoxemic patient was intubated by ED attending. CBC/BMP: 04/29/17 0540 04/29/17 0540 Significant Findings Laboratory Tests Test 04/27/17 07:15 04/28/17 06:16 04/29/17 05:40 Red Blood Count 4.21 MIL/MM3 (4.50-5.90) 4.33 MIL/MM3 (4.50-5.90) Mean Corpuscular Volume 100.1 FL (80.0-100.0) 100.1 FL (80.0-100.0) Platelet Count 127 TH/MM3 (150-450) 120 TH/MM3 (150-450) 129 TH/MM3 (150-450) Neutrophils (%) (Auto) 70.1 % (16.0-70.0) Monocytes (%) (Auto) 12.6 % (0.0-8.0) Monocytes # (Auto) 1.2 TH/MM3 (0-0.9) Creatinine 0.58 MG/DL (0.60-1.30) Carbon Dioxide Level 40.8 MEQ/L (21.0-32.0) 40.8 MEQ/L (21.0-32.0) 44.9 MEQ/L (21.0-32.0) Anion Gap 2 MEQ/L (5-15) 2 MEQ/L (5-15) 1 MEQ/L (5-15) Blood Urea Nitrogen 20 MG/DL (7-18) 19 MG/DL (7-18) Random Glucose 113 MG/DL (74-106) 111 MG/DL (74-106) Total Protein 6.3 GM/DL (6.4-8.2) Albumin 2.9 GM/DL (3.4-5.0) Aspartate Amino Transf (AST/SGOT) 44 U/L (15-37) Alanine Aminotransferase (ALT/SGPT) 139 U/L (12-78) Direct Bilirubin 0.3 MG/DL (0.0-0.2) HDL Cholesterol 74.2 MG/DL (40.0-60.0) White Blood Count 11.1 TH/MM3 (4.0-11.0) Potassium Level 3.2 MEQ/L (3.5-5.1) Chloride Level 94 MEQ/L (98-107) Imaging Last Impressions Liver Ultrasound 04/29/17 0000 Signed Impressions: Service Date/Time: Saturday, April 29, 2017 07:14 - CONCLUSION: The liver is slightly echogenic which maybe due to fatty infiltration and or hepatocellular dysfunction and possible gallstone. Rossana Adorno MD Chest X-Ray 04/24/17 0600 Signed Impressions: Service Date/Time: Monday, April 24, 2017 04:18 - CONCLUSION: Suspected right lower lobe consolidation or atelectasis. There is linear suspected atelectasis at the left lung. Michael Jackson MD CT Angiography 04/21/17 0000 Signed Impressions: Service Date/Time: Friday, April 21, 2017 13:29 - CONCLUSION: 1. No evidence of pulmonary embolism. 2. Air consolidation the right lung base concerning for pneumonia. 3. Underlying emphysema and apparent scarring. 4. Cirrhotic appearing liver. Hermes Polanco MD Hospital Course CT angiogram on admission showed pneumonia on the above which was treated with antibiotics patient was also treated for COPD exacerbation, with pulmonology following during admission. Patient also experienced NSTEMI with troponin up to 2.68, for which cardiology was consulted, patient underwent cardiac catheterization which showed 2 vessel mild disease with ejection fraction of 60% . Patient was started on aspirin. Patient will continue prednisone taper. Close follow-up with pulmonology as outpatient. For problem-based summary from most recent progress note, please see below. //Acute hypoxic and hypercarbic Respiratory failure //COPD exacerbation //RIGOBERTO //Pulmonary hypertension. - Continue with oxygen keep sat >92% - Continue Prednisone 10mg TID. Give Diamox 250mg IV x1 - DuoNeb scheduled and when necessary - Self extubation 04/19. off BIPAP, on nasal cannula currently. - Continue home meds -theophylline, Symbicort = Completed antibiotics. - Pulmonary is following- Dr. Maots appreciate assistance. = 04/28. Urinary status continues improving. Appreciate pulmonary assistance. -Stable for discharge to SNF //Hypokalemia. Potassium 3.4. Replaced again. Monitor receiving facility.. //GI - heart healthy diet as tolerated. -Bowel regimen //Hypertension //NSTEMI, type 2 secondary to demand ischemia - Monitor HR and BP keep MAP>65mmHg - Dr. Vásquez following - [id number] Q12 - s/p cardiac cath by Dr. Vásquez: 2V mild disease, EF 60% = vital Signs stable. Continue to monitor. //BPH. chronic. - Tamsulosin Monitor renal function, I/O's, electrolytes replacement per protocol. Endo: - dc SSI with accuchecks to maintain Euglycemia Heme: Monitor CBC Pt Condition on Discharge: Good Discharge Disposition: Discharge to SNF Discharge Time: > 30 minutes Discharge Instructions DIET: Follow Instructions for: Diabetic Diet Activities you can perform: Regular-No Restrictions Follow up Referrals: Cardiology - 1 Week with Gaston Vásquez MD Pulmonology - 1 Week with Jerry Matos MD New Medications: Aspirin DR (Aspirin EC) 81 Mg Tabdr 81 MG PO DAILY for heart for 30 Days, #30 TAB 0 Refills Furosemide (Furosemide) 20 Mg Tab 20 MG PO DAILY for heart, #30 TAB 0 Refills Potassium Chloride ER (Potassium Chloride ER) 10 Meq Cap 10 MEQ PO DAILY for Electrolyte Replacement, #30 CAP 0 Refills Prednisone (Prednisone) 10 Mg Tab 10 MG PO DAILY for COPD, #9 TAB 0 Refills 20mg daily for 3 days; 10mg daily for 3 days, then stop. [Albuterol-Ipratropium Neb] () 1 AMPULE NEBU 1 AMPULE INH Q2HR NEB PRN for WHEEZING for 30 Days Continued Medications: Albuterol 18 GM Inh (Ventolin Hfa 18 GM Inh) 90 Mcg/Act Aer 1 PUFF INH Q4H for Shortness of Breath, #1 INHALER 0 Refills Budesonide-Formoterol Inh (Symbicort Inh) 80-4.5 Mcg/Act Aero 1 PUFF INH Q12HR for Asthma Management, #1 INHALER 0 Refills Cyanocobalamin (B12) 1,000 Mcg Tab 500 MG Famotidine (Famotidine) 20 Mg Tab 20 MG PO BID for Prevent Stress Ulcers for 5 Days, #10 TAB Ipratropium-Albuterol Neb (Duoneb) 0.5-2.5 Mg/3 Ml Neb 1 NEBULE INH Q4HR NEB for SHORTNESS OF BREATH, #120 NEBULE 0 Refills Magnesium Hydroxide (Qc Milk of Magnesia) 400 Mg/5 Ml Jovana 30 ML PO Q6H PRN for CONSTIPATION for 5 Days, MG Methocarbamol (Methocarbamol) 500 Mg Tab 500 MG PO Q8HR for Muscle Spasm, #21 TAB Multiple Vitamin (Multi Vitamin Daily) 1 Tab Tab Potassium Chloride ER (Potassium Chloride ER) 20 Meq Tab 20 MEQ PO DAILY for Electrolyte Replacement, #30 TAB 0 Refills Sennosides-Docusate Sodium (Gnp Senna Plus 8.6-50 mg) 8.6 Mg-50 Mg Tab 2 TAB PO BID for Constipation for 5 Days, #20 TAB Tamsulosin (Tamsulosin) 0.4 Mg Cap 0.4 MG PO HS for Manage Prostate Problems, #30 CAP 0 Refills Theophylline ER 24 HR (Theophylline ER 24 HR) 400 Mg Tab 400 MG PO DAILY, #30 TAB 0 Refills [guaiFENesin ER] () 600 MG TABCR 600 MG PO BID for Cough for 5 Days, #10 TAB Discontinued Medications: Enoxaparin Inj (Lovenox Inj) 40 Mg/0.4 Ml Syr 40 MG SQ Q24H for Prevent Blood Clot for 5 Days, INJECTION Furosemide (Furosemide) 40 Mg Tab 40 MG PO DAILY, #30 TAB 0 Refills Hydrocodone/Acetaminophen (Hydrocodone-Acetamin 5-325 mg) 5 Mg-325 Mg Tablet 1 TAB PO Q4H PRN for pain, #42 TAB Hans Banda MD Apr 29, 2017 15:07
[2017-04-29] MEDS: ENOXAPARIN SODIUM 40 MG/0.4 ML SYRINGE SQ SCH (15:31)
[2017-04-29] MEDS: TAMSULOSIN HCL 0.4 MG CAP PO SCH (21:02)
[2017-04-29] MEDS: RESP: ALBUTEROL 2.5 MG/IPRATROPIUM 0.5 MG NEB (PRN) INH (21:47)
[2017-04-30 00:42] VITALS: BP 153/79; PULSE 90; RESP 18; TEMP 97.9; O2SAT 97
[2017-04-30] MEDS: CHLORHEXIDINE GLUCONATE 2 % 1 PACK (2 CLOTHS) TOP SCH (03:34)
[2017-04-30] MEDS: METHOCARBAMOL 500 MG TAB PO SCH ×2 (05:17→14:33)
[2017-04-30 05:21] VITALS: BP 100/61; PULSE 76; RESP 18; TEMP 97.4; O2SAT 99
[2017-04-30 08:00] VITALS: BP 136/73; PULSE 74; RESP 18; TEMP 97.9; O2SAT 100
[2017-04-30] MEDS: INSULIN NovoLIN REGULAR SUPPLEMENTAL SCALE SQ SCH ×2 (08:00→12:19)
[2017-04-30] MEDS: DOCUSATE SODIUM 50 MG/SENNA 8.6 MG TAB PO SCH (08:04)
[2017-04-30] MEDS: METOPROLOL TARTRATE 50 MG TAB PO SCH (08:26)
[2017-04-30] MEDS: ASPIRIN EC 81 MG TABEC PO SCH (08:26)
[2017-04-30] MEDS: THEOPHYLLINE 200 MG EXTENDED RELEASE CAP PO SCH (08:26)
[2017-04-30] MEDS: predniSONE 10 MG TAB PO SCH ×2 (08:26→12:19)
[2017-04-30] MEDS: guaiFENesin E.R. 600 MG TAB PO SCH (08:26)
[2017-04-30] MEDS: FAMOTIDINE 20 MG/2 ML VIAL IV PUSH SCH (08:27)
[2017-04-30] MEDS: SODIUM CHLORIDE 0.9% FLUSH 10 ML FLUSH IV FLUSH SCH (08:27)
[2017-04-30] MEDS: BUDESONIDE-FORMOTEROL 80/4.5 MCG INHALER INH SCH (08:31)
[2017-04-30] MEDS ORDERED: FUROSEMIDE 20 MG TAB PO SCH (09:00)
[2017-04-30 09:03] LABS: AUTOMATED NEUTROPHIL # 7.5 TH/MM3 (1.8-7.7); BASOPHIL % 0.1 % (0.0-2.0); EOSINOPHIL # 0.1 TH/MM3 (0-0.4); EOSINOPHIL % 1.1 % (0.0-4.0); HEMATOCRIT 41.4 % (39.0-51.0); LYMPH % 19.6 % (9.0-44.0); LYMPHOCYTE # 2.2 TH/MM3 (1.0-4.8); MEAN CELL VOLUME 98.8 FL (80.0-100.0); MEAN CORPUSCULAR HEMOGLOBIN 33.3 PG (27.0-34.0); MEAN CORPUSCULAR HGB CONC 33.8 % (32.0-36.0); MEAN PLATELET VOLUME 9.4 FL (7.0-11.0); MONO % 11.4 % (0.0-8.0); MONOCYTE # 1.3 TH/MM3 (0-0.9); NEUT % 67.8 % (16.0-70.0); PLATELET COUNT 144 TH/MM3 (150-450); RED BLOOD COUNT 4.19 MIL/MM3 (4.50-5.90); RED CELL DISTRIBUTION WIDTH 13.1 % (11.6-17.2); WHITE BLOOD COUNT 11.1 TH/MM3 (4.0-11.0)
[2017-04-30] MEDS: RESP: ALBUTEROL 2.5 MG/IPRATROPIUM 0.5 MG NEB (PRN) INH (09:59)
[2017-04-30 10:00] VITALS: O2SAT 97
[2017-04-30 11:02] LABS: ALBUMIN 2.7 GM/DL (3.4-5.0); BICARBONATE 44.3 MEQ/L (21.0-32.0); CREATININE 0.62 MG/DL (0.60-1.30)
[2017-04-30 11:03] LABS: PHOSPHORUS 3.2 MG/DL (2.5-4.9)
[2017-04-30 11:58] LABS: HEPATITIS A AB IGM NEGATIVE (NEGATIVE); HEPATITIS B CORE AB IGM NEGATIVE (NEGATIVE); HEPATITIS B SURFACE ANTIGEN NEGATIVE (NEGATIVE); HEPATITIS C AB IgG NEGATIVE (NEGATIVE)
[2017-04-30 12:00] VITALS: BP 119/64; PULSE 86; RESP 18; TEMP 97.8; O2SAT 97
[2017-04-30] MEDS ORDERED: POTASSIUM CHLORIDE 10 MEQ CAP PO ONE (12:00)
--- NOTE | 2017-04-30 12:01 | HHI.PR ---
Subjective Remarks Patient sitting up on side of bed. Reports shortness of breath stable. Denies any chest pain. No acute events per nursing. Objective Vital Signs Date Time Temp Pulse Resp B/P (MAP) Pulse Ox O2 Delivery O2 Flow Rate FiO2 04/30/17 10:00 97 Nasal Cannula 3.00 04/30/17 08:00 97.9 74 18 136/73 (94) 100 04/30/17 05:21 97.4 76 18 100/61 (74) 99 04/30/17 00:42 97.9 90 18 153/79 (103) 97 04/29/17 22:49 Room Air 04/29/17 20:13 97.1 94 18 141/81 (101) 99 04/29/17 17:58 97 Nasal Cannula 3.00 04/29/17 16:23 97.1 96 17 130/86 (101) 97 04/29/17 12:46 97.8 90 17 115/72 (86) 97 I/O 04/29/17 04/29/17 04/29/17 04/30/17 04/30/17 04/30/17 07:00 15:00 23:00 07:00 15:00 23:00 Intake Total 600 ml Output Total 400 ml 300 ml 400 ml Balance -400 ml -300 ml 200 ml Intake Oral 600 ml Output Urine Total 400 ml 300 ml 400 ml # Bowel Movements 1 1 Result Diagram: 04/30/1781804/30/1719 Objective Remarks GENERAL: Patient sitting up in bed. Appears to be breathing comfortably. Again , No change on exam. SKIN: Warm and dry. HEAD: Normocephalic. EYES: No scleral icterus. No injection or drainage. NECK: Supple, trachea midline. No JVD. CARDIOVASCULAR: Regular rate and rhythm without murmurs, gallops, or rubs. RESPIRATORY: Breath sounds equal bilaterally. No accessory muscle use. GASTROINTESTINAL: Abdomen soft, non-tender, nondistended. MUSCULOSKELETAL: No cyanosis, or edema. BACK: Nontender without obvious deformity. No CVA tenderness. A/P Assessment and Plan //Acute hypoxic and hypercarbic Respiratory failure //COPD exacerbation //RIGOBERTO //Pulmonary hypertension. - Continue with oxygen keep sat >92% - Continue Prednisone 10mg TID. Give Diamox 250mg IV x1 - DuoNeb scheduled and when necessary - Self extubation 04/19. off BIPAP, on nasal cannula currently. - Continue home meds -theophylline, Symbicort = Completed antibiotics. - Pulmonary is following- Dr. Matos appreciate assistance. = 04/28. Urinary status continues improving. Appreciate pulmonary assistance. -Stable for discharge to SNF //Hypokalemia. Potassium 3.4. Replaced again. Monitor receiving facility.. //GI - heart healthy diet as tolerated. -Bowel regimen //Hypertension //NSTEMI, type 2 secondary to demand ischemia - Monitor HR and BP keep MAP>65mmHg - Dr. Vásquez following - [id number] Q12 - s/p cardiac cath by Dr. Vásquez: 2V mild disease, EF 60% = vital Signs stable. Continue to monitor. //BPH. chronic. - Tamsulosin Monitor renal function, I/O's, electrolytes replacement per protocol. Endo: - dc SSI with accuchecks to maintain Euglycemia Heme: Monitor CBC Discharge Planning Discharge to SNF when accepted. Hans Banda MD Apr 30, 2017 12:01
--- NOTE | 2017-04-30 13:34 | PD.CARD.PN ---
Subjective Subjective Remarks alert in nad, denies chest pain Objective Medications Current Medications Medications (Trade) Dose Ordered Sig/[place] Route Start Time Stop Time Status Last Admin (Symbicort 80-4.5 Mcg Inh) 1 puff Q12HR INH 04/18/17 09:00 04/30/17 08:31 (Robaxin) 500 mg Q8HR PO 04/18/17 06:00 04/30/17 05:17 (Flomax) 0.4 mg HS PO 04/18/17 21:00 04/29/17 21:02 ([place]akota-24) 400 mg DAILY PO 04/18/17 09:00 04/30/17 08:26 (Mucinex Er) 600 mg BID PO 04/18/17 09:00 04/30/17 08:26 (Tylenol) 650 mg Q6H PRN PO 04/18/17 00:30 04/24/17 01:09 (Pepcid Inj) 20 mg Q12HR IV PUSH 04/18/17 09:00 04/30/17 08:27 (Zofran Inj) 4 mg Q6H PRN IV PUSH 04/18/17 00:30 (Duoneb Neb) 1 ampule Q2HR NEB PRN INH 04/18/17 00:30 04/30/17 09:59 Miscellaneous Information 1 Q361D XX 04/18/17 00:30 04/18/17 00:30 (Chlorhexidine 2% Cloth) Taper DAILY@04 TOP 04/18/17 04:00 04/14/18 03:59 04/24/17 04:00 (Chlorhexidine 2% Cloth) 3 pack UNSCH PRN TOP 04/18/17 00:30 (Edna-Colace) 1 tab BID PO 04/18/17 09:00 04/28/17 21:45 (Milk Of Magnesia Liq) 30 ml Q12H PRN PO 04/18/17 00:30 (Senokot) 17.2 mg Q12H PRN PO 04/18/17 00:30 (Dulcolax Supp) 10 mg DAILY PRN RECTAL 04/18/17 00:30 (Lactulose Liq) 30 ml DAILY PRN PO 04/18/17 00:30 (D50w (Vial) Inj) 50 ml UNSCH PRN IV PUSH 04/18/17 00:45 (Glucagon Inj) 1 mg UNSCH PRN OTHER 04/18/17 00:45 (NovoLIN R SUPPLEMENTAL SCALE) 1 ACHS SLIDING SCALE SQ 04/18/17 08:00 04/30/17 12:19 (Ecotrin Ec) 81 mg DAILY PO 04/19/17 09:00 04/30/17 08:26 (Lopressor Inj) 2.5 mg Q6H PRN IV PUSH 04/19/17 09:15 04/26/17 16:18 (Lopressor) 25 mg Q12HR PO 04/24/17 09:00 04/30/17 08:26 (NS Flush) 2 ml BID IV FLUSH 04/25/17 21:00 04/30/17 08:27 (NS Flush) 2 ml UNSCH PRN IV FLUSH 04/25/17 14:00 (Deltasone) 10 mg TID PO 04/26/17 09:00 04/30/17 12:19 (Lovenox Inj) 40 mg Q24H SQ 04/28/17 16:00 04/29/17 15:31 (Lasix) 20 mg DAILY PO 04/30/17 09:00 04/30/17 08:26 Vital Signs / I&O Vital Signs Date Time Temp Pulse Resp B/P (MAP) Pulse Ox O2 Delivery O2 Flow Rate FiO2 04/30/17 12:00 97.8 86 18 119/64 (82) 97 04/30/17 10:00 97 Nasal Cannula 3.00 04/30/17 08:00 97.9 74 18 136/73 (94) 100 04/30/17 05:21 97.4 76 18 100/61 (74) 99 04/30/17 00:42 97.9 90 18 153/79 (103) 97 04/29/17 22:49 Room Air 04/29/17 20:13 97.1 94 18 141/81 (101) 99 04/29/17 17:58 97 Nasal Cannula 3.00 04/29/17 16:23 97.1 96 17 130/86 (101) 97 I/O 04/29/17 04/29/17 04/29/17 04/30/17 04/30/17 04/30/17 07:00 15:00 23:00 07:00 15:00 23:00 Intake Total 600 ml Output Total 400 ml 300 ml 400 ml Balance -400 ml -300 ml 200 ml Intake Oral 600 ml Output Urine Total 400 ml 300 ml 400 ml # Bowel Movements 1 1 Physical Exam GENERAL: SKIN: Warm and dry. HEAD: Normocephalic. EYES: No scleral icterus. No injection or drainage. NECK: Supple, trachea midline. No JVD or lymphadenopathy. CARDIOVASCULAR: Regular rate and rhythm without murmurs, gallops, or rubs. RESPIRATORY: Breath sounds equal bilaterally. No accessory muscle use. GASTROINTESTINAL: Abdomen soft, non-tender, nondistended. MUSCULOSKELETAL: No cyanosis, or edema. BACK: Nontender without obvious deformity. No CVA tenderness. Laboratory Laboratory Tests Test 04/30/17 08:19 White Blood Count 11.1 TH/MM3 Red Blood Count 4.19 MIL/MM3 Hemoglobin 14.0 GM/DL Hematocrit 41.4 % Mean Corpuscular Volume 98.8 FL Mean Corpuscular Hemoglobin 33.3 PG Mean Corpuscular Hemoglobin Concent 33.8 % Red Cell Distribution Width 13.1 % Platelet Count 144 TH/MM3 Mean Platelet Volume 9.4 FL Neutrophils (%) (Auto) 67.8 % Lymphocytes (%) (Auto) 19.6 % Monocytes (%) (Auto) 11.4 % Eosinophils (%) (Auto) 1.1 % Basophils (%) (Auto) 0.1 % Neutrophils # (Auto) 7.5 TH/MM3 Lymphocytes # (Auto) 2.2 TH/MM3 Monocytes # (Auto) 1.3 TH/MM3 Eosinophils # (Auto) 0.1 TH/MM3 Basophils # (Auto) 0.0 TH/MM3 CBC Comment DIFF FINAL Differential Comment Blood Urea Nitrogen 14 MG/DL Creatinine 0.62 MG/DL Random Glucose 89 MG/DL Albumin 2.7 GM/DL Calcium Level 9.0 MG/DL Phosphorus Level 3.2 MG/DL Magnesium Level 2.0 MG/DL Sodium Level 141 MEQ/L Potassium Level 3.4 MEQ/L Chloride Level 92 MEQ/L Carbon Dioxide Level 44.3 MEQ/L Anion Gap 5 MEQ/L Estimat Glomerular Filtration Rate 135 ML/MIN Assessment and Plan Problem List: (1) COPD (chronic obstructive pulmonary disease) ICD Codes: J44.9 - Chronic obstructive pulmonary disease, unspecified Status: Chronic Assessment and Plan 1.) NSTEMI - mild 2 vessel cad, continue aspirin 81 mg qd, statin held due to elevated lfts and cpk on admit, repeat lfts 04/28/17 still elevated, he denies chest pain Problem Qualifiers (1) COPD (chronic obstructive pulmonary disease): Qualified Codes: J44.9 - Chronic obstructive pulmonary disease, unspecified Gaston Vásquez MD Apr 30, 2017 13:34
[2017-04-30] MEDS: ENOXAPARIN SODIUM 40 MG/0.4 ML SYRINGE SQ SCH (15:17)
== END 2017-04-30 16:32 | DRG 280 ==
LOC: NEPE 22:05 → NEDA 23:46 → HIMN 04-18 02:25 → N05A 04-26 17:20
PROVIDERS: ADMIT Internal Medicine; ATTEND Internal Medicine
PROC: 5A1945Z Respiratory Ventilation, 24-96 Consecutive Hours (ICD-10-PCS; principal; 2017-04-17)
PROC: 0BH17EZ Insertion of Endotracheal Airway into Trachea, Via Natural or Artificial Opening (ICD-10-PCS; 2017-04-17)
PROC: 5A09557 Assistance with Respiratory Ventilation, Greater than 96 Consecutive Hours, Continuous Positive Airway Pressure (ICD-10-PCS; 2017-04-19)
PROC: 4A023N8 Measurement of Cardiac Sampling and Pressure, Bilateral, Percutaneous Approach (ICD-10-PCS; 2017-04-25)
PROC: B2111ZZ Fluoroscopy of Multiple Coronary Arteries using Low Osmolar Contrast (ICD-10-PCS; 2017-04-25)
PROC: B2151ZZ Fluoroscopy of Left Heart using Low Osmolar Contrast (ICD-10-PCS; 2017-04-25)
DX: I21.A1 Myocardial infarction type 2 (principal); J96.21 Acute and chronic respiratory failure with hypoxia; J18.9 Pneumonia, unspecified organism; I11.0 Hypertensive heart disease with heart failure; I27.20 Pulmonary hypertension, unspecified; E87.1 Hypo-osmolality and hyponatremia; J44.0 Chronic obstructive pulmonary disease with (acute) lower respiratory infection; I50.9 Heart failure, unspecified; D75.1 Secondary polycythemia; J96.22 Acute and chronic respiratory failure with hypercapnia; J44.1 Chronic obstructive pulmonary disease with (acute) exacerbation; Z99.81 Dependence on supplemental oxygen; Z87.891 Personal history of nicotine dependence; N40.0 Benign prostatic hyperplasia without lower urinary tract symptoms; I25.118 Atherosclerotic heart disease of native coronary artery with other forms of angina pectoris; G47.33 Obstructive sleep apnea (adult) (pediatric); Z86.14 Personal history of Methicillin resistant Staphylococcus aureus infection; R73.9 Hyperglycemia, unspecified; E87.6 Hypokalemia; R79.89 Other specified abnormal findings of blood chemistry; R60.0 Localized edema; E66.9 Obesity, unspecified; L98.8 Other specified disorders of the skin and subcutaneous tissue
CPT/HCPCS: 31500; 36600; 43753; 51702; 71045; 71275; 76705; 76937; 80048; 80053; 80061; 80069; 80074; 80076; 80198; 81001; 82550; 82552; 82805; 82810; 82948; 83605; 83735; 83880; 84100; 84484; 85025; 85027; 85610; 85730; 87040; 87070; 87086; 87205; 87449; 87641; 87804; 93005; 93460; 94002; 94003; 94150; 94640; 94664; 96365; 96368; 96375; C1769; C1893; J0330; J0456; J1120; J1644; J1650; J1940; J2543; J2920; J3010; J7030; J7050; J7512; Q9967